=== PATIENT | female | born 1950 | race Caucasian/White ===

== ENCOUNTER → 2017-04-12 | Outpatient (CLI) | payer MEDICARE ==
--- NOTE | 2017-04-16 10:48 | MM ---
Reason for exam: screening (asymptomatic). Last mammogram was performed 1 year ago. History: Patient is postmenopausal. Family history of breast cancer in paternal aunt at age 80. Took estrogen for 2 years beginning at age 46. Physical Findings: A clinical breast exam by your physician is recommended on an annual basis and results should be correlated with mammographic findings. MG 3D Screening Mammo W/Cad Bilateral CC and MLO view(s) were taken. Prior study comparison: April 11, 2016, bilateral MG 3d screening mammo w/cad. April 20, 2015, left breast MG work up mamm w CAD LT. April 08, 2015, bilateral MG screening mammo w CAD. There are scattered fibroglandular densities. There is no discrete abnormality. ASSESSMENT: Negative, BI-RAD 1 RECOMMENDATION: Routine screening mammogram of both breasts in 1 year.
== END ==
LOC: RADMAMWWP 08:58
PROVIDERS: ATTEND Obstetrics & Gynecology
DX: Z12.31 Encounter for screening mammogram for malignant neoplasm of breast (principal); Z80.3 Family history of malignant neoplasm of breast
CPT/HCPCS: 77063; G0202

== ENCOUNTER → 2017-04-16 | Outpatient (CLI) | payer MEDICARE ==
[2017-04-16 14:20] VITALS: BP 141/80; PULSE 66; TEMP 98.2; BMI 36.7
--- NOTE | 2017-04-16 16:22 | P.HPBAR ---
Bariatric H&P - History & Physicial H&P Date: 04/16/17 History & Physicial: Visit/CC: lap band follow up Patient initial contact: Initial weight: 77.111 kg Initial weight in pounds: 170.00 Height: 5 ft 5 in Initial BMI: 28.3 Last weight: 208 Current weight: 100.199 kg Current weight in pounds: 220.90 Current BMI: 36.7 [place] body weight (based on NIH guidelines): 56.699 kg Excess body weight loss: The patient is a 66 year-old F who presents for Bariatric Assessment. The patient presents today for lab band follow up. She's had some mild GERD. He is actually gaining some weight. It's been approximate year since I have seen her. Past Medical History Additional Past Medical History / Comment(s): kidney stones, lap band, shoulder pain History of Any Multi-Drug Resistant Organisms: None Reported Past Surgical History: Cholecystectomy Additional Past Surgical History / Comment(s): lap band Past Psychological History: No Psychological Hx Reported Smoking Status: Never smoker Past Alcohol Use History: Rare Past Drug Use History: None Reported Surgical - Exam Vital Signs Temp Pulse BP 98.2 F 66 141/80 04/16/17 14:17 04/16/17 14:17 04/16/17 14:17 - General well developed, no distress - Eyes PERRL - ENT normal pinna - Neck no masses - Respiratory normal expansion - Cardiovascular Rhythm: regular - Abdomen Abdomen: soft, non tender Bariatric Assessment & Plan Plan: The patient's GERD symptoms are minimal only observed. She'll follow-up in one month recheck. Bariatric Checklist Checklist: Plan: Checklist: EGD: 1. Hiatal hernia: 2. H. Pylori: HgbA1c: Vitamin D: Smoking: Never smoker Primary care physician referral: dr casiano Psychiatry clearance: Cardiology clearance: Sleep study: Diet journal: VTE risk score: VTE risk level: Rehab needs at discharge:
== END ==
LOC: BARWHC3 13:47
PROVIDERS: ATTEND Surgery
DX: Z48.815 Encounter for surgical aftercare following surgery on the digestive system (principal); Z98.84 Bariatric surgery status; K21.9 Gastro-esophageal reflux disease without esophagitis
CPT/HCPCS: 99211

== ENCOUNTER → 2017-05-22 | Outpatient (CLI) | payer MEDICARE ==
--- NOTE | 2017-05-22 08:26 | BD ---
EXAMINATION TYPE: MG DEXA axial skeleton. DATE OF EXAM: 05/22/2017 COMPARISON: DEXA bone scan May 19, 2014 CLINICAL HISTORY: Postmenopausal female with known osteopenia. Height: 64 Weight: 221.0 FRAX RISK QUESTIONS: Alcohol (3 or more units per day): no Family History (Parent hip fracture): yes Glucocorticoids (More than 3mos): no (Ex: prednisone, prednisolone, methylprednisolone, dexamethasone, and hydrocortisone). History of Fracture in Adulthood: no Secondary Osteoporosis: 1. Type 1 Diabetes: no 2. Hyperthyroidism: no 3. Menopause before 45: no 4. Malnutrition: no 5. Chronic liver disease: no Rheumatoid Arthritis: no Current Tobacco Use: no RISK FACTORS HISTORY OF: Hip Fracture (Right/Left): no Spine Fracture: no History of Wrist Fracture: no Surgery to Spine/Hip(right/left)/Wrist (right/left): no Family History of Osteoporosis: yes Active: yes Diet low in dairy products/other sources of calcium: no Postmenopausal woman: late 40s early 50s Lost more than 2 inches in height since high school: just 2 inches Frequent falls: no Poor Health: no Hyperparathyroidism: no Adrenal Insufficiency: no MEDICATIONS: restasis, citalopram, naproxen Prednisone or other steroids: just stopped taking them How Long: only took for 7 days Additional History: EXAM MEASUREMENTS: Bone mineral densitometry was performed using the [employer] System. Bone mineral density as measured about the Lumbar spine is: ----- L1-L4(G/cm2): 1.057 T Score Values are as follows: ----- L2: -1.3 ----- L3: -1.4 ----- L4: -0.3 ----- L1-L4: -1.0 Bone mineral density has: decreased -11.6 % since study of: 05.19.2014 Bone mineral density about the R hip (g/cm2): 0.809 Bone mineral density about the L hip (g/cm2): 0.837 T Score values are as follows: -----R Neck: -1.6 -----L Neck: -1.4 -----R Total: -0.9 -----L Total: -0.7 Bone mineral density has: decreased -0.9 % since study of: 05.19.2014 IMPRESSION: Osteopenia (T Score between -2.5 and -1 as noted by T score values in the low back and both hips is n ow present. Bone density is decreased or diminished from prior. There remains slightly increased risk of fracture and the patient may be considered for treatment. Re-Screen 2-5 years. NOTE: T-SCORE=SD OF THE YOUNG ADULT MEAN.
== END | disposition home or self-care (01) ==
LOC: RADBDWWP 07:18
PROVIDERS: ATTEND Obstetrics & Gynecology
DX: M85.89 Other specified disorders of bone density and structure, multiple sites (principal)
CPT/HCPCS: 77080

== ENCOUNTER → 2017-07-23 | Outpatient (CLI) | payer MEDICARE ==
[2017-07-23 14:00] VITALS: BP 160/94; PULSE 97; RESP 16; TEMP 98.3; BMI 37.0
--- NOTE | 2017-07-23 15:15 | FL ---
GASTRIC BANDING ESOPHAGRAM CLINICAL HISTORY: Pain 49 SEC FLUORO Images submitted. Gastric banding esophagram was performed. The patient ingested thin liquid barium without difficulty . Gastric band is noted to be in place. Mild narrowing is noted at the site of band placement with m ild delay in esophagogastric transit. There is no evidence for prolapse. IMPRESSION: Mild narrowing is noted at the site of band placement with mild delay in esophagogastric transit. The re is no evidence for prolapse.
--- NOTE | 2017-07-23 16:02 | P.HPBAR ---
Bariatric H&P - History & Physicial H&P Date: 07/23/17 History & Physicial: Visit/CC: and adj Patient initial contact: Initial weight: 77.111 kg Initial weight in pounds: 170.00 Height: 5 ft 5 in Initial BMI: 28.3 Last weight: Current weight: 100.953 kg Current weight in pounds: 222.00 Current BMI: 37.0 [place] body weight (based on NIH guidelines): 56.699 kg Excess body weight loss: The patient is a 66 year-old F who presents for Bariatric Assessment. The patient presents today for lab band follow up. She has had some complaints of dysphagia. Past Medical History Additional Past Medical History / Comment(s): kidney stones, lap band, shoulder pain History of Any Multi-Drug Resistant Organisms: None Reported Past Surgical History: Cholecystectomy Additional Past Surgical History / Comment(s): lap band Smoking Status: Never smoker Surgical - Exam Vital Signs Temp Pulse Resp BP 98.3 F 97 16 160/94 07/23/17 13:58 07/23/17 13:58 07/23/17 13:58 07/23/17 13:58 - General well nourished, no distress - Eyes PERRL - Abdomen Abdomen: soft, non tender Bariatric Assessment & Plan Plan: Patient had an esophagram. She is found to have some mild narrowing at the LAP- BAND site. There is also some mild delay of contrast passing through the level of the band. The patient's LAP-BAND was just. She had 0.2 mL remove her band. She will follow-up in one month. Bariatric Checklist Checklist: Plan: Checklist: EGD: 1. Hiatal hernia: 2. H. Pylori: HgbA1c: Vitamin D: Smoking: Never smoker Primary care physician referral: dr casiano Psychiatry clearance: Cardiology clearance: Sleep study: Diet journal: VTE risk score: VTE risk level: Rehab needs at discharge:
== END | disposition home or self-care (01) ==
LOC: BARWHC3 13:44
PROVIDERS: ATTEND Surgery
DX: Z48.815 Encounter for surgical aftercare following surgery on the digestive system (principal); K95.09 Other complications of gastric band procedure; R13.10 Dysphagia, unspecified; Z98.84 Bariatric surgery status
CPT/HCPCS: 74220; G0463; 99213

== ENCOUNTER → 2017-09-03 | Outpatient (CLI) | payer MEDICARE ==
[2017-09-03 13:20] VITALS: BP 123/74; PULSE 80; RESP 16; TEMP 98.1; BMI 37.3
--- NOTE | 2017-09-04 11:44 | P.HPBAR ---
Bariatric H&P - History & Physicial H&P Date: 09/03/17 History & Physicial: Visit/CC: band adj Patient initial contact: Initial weight: 77.111 kg Initial weight in pounds: 170.00 Height: 5 ft 5 in Initial BMI: 28.3 Last weight: Current weight: 101.605 kg Current weight in pounds: 224.00 Current BMI: 37.3 [place] body weight (based on NIH guidelines): 56.699 kg Excess body weight loss: The patient is a 66 year-old F who presents for Bariatric Assessment. Patient presents for lab band follow. She's had some minimal GERD. The patient is a does not want to fill due to dysphagia. Past Medical History Additional Past Medical History / Comment(s): kidney stones, lap band, shoulder pain History of Any Multi-Drug Resistant Organisms: None Reported Past Surgical History: Cholecystectomy Additional Past Surgical History / Comment(s): lap band Smoking Status: Never smoker Surgical - Exam Vital Signs Temp Pulse Resp BP 98.1 F 80 16 123/74 09/03/17 13:17 09/03/17 13:17 09/03/17 13:17 09/03/17 13:17 - General well developed, no distress - Eyes PERRL - ENT normal pinna - Neck no masses - Respiratory normal expansion - Cardiovascular Rhythm: regular - Abdomen Abdomen: soft, non tender Bariatric Assessment & Plan Plan: Patient will not a fill this visit. Her GERD is minimal will be observed. She' ll follow-up in one month. Bariatric Checklist Checklist: Plan: Checklist: EGD: 1. Hiatal hernia: 2. H. Pylori: HgbA1c: Vitamin D: Smoking: Never smoker Primary care physician referral: dr casiano Psychiatry clearance: Cardiology clearance: Sleep study: Diet journal: VTE risk score: VTE risk level: Rehab needs at discharge:
== END | disposition home or self-care (01) ==
LOC: BARWHC3 13:09
PROVIDERS: ATTEND Surgery
DX: Z48.815 Encounter for surgical aftercare following surgery on the digestive system (principal); K21.9 Gastro-esophageal reflux disease without esophagitis; Z98.84 Bariatric surgery status
CPT/HCPCS: 99212

== ENCOUNTER → 2018-05-08 | Outpatient (CLI) | payer MEDICARE ==
--- NOTE | 2018-05-09 15:02 | MM ---
Reason for exam: screening (asymptomatic). Last mammogram was performed 1 year and 1 month ago. History: Patient is postmenopausal. Family history of breast cancer in paternal aunt at age 80. Took estrogen for 2 years beginning at age 46. Physical Findings: A clinical breast exam by your physician is recommended on an annual basis and results should be correlated with mammographic findings. MG 3D Screening Mammo W/Cad Bilateral CC and MLO view(s) were taken. Prior study comparison: April 12, 2017, bilateral MG 3d screening mammo w/cad. April 11, 2016, bilateral MG 3d screening mammo w/cad. There are scattered fibroglandular densities. No significant changes when compared with prior studies. ASSESSMENT: Negative, BI-RAD 1 RECOMMENDATION: Routine screening mammogram of both breasts in 1 year.
== END ==
LOC: RADMAMWWP 08:01
PROVIDERS: ATTEND Obstetrics & Gynecology
DX: Z12.31 Encounter for screening mammogram for malignant neoplasm of breast (principal)
CPT/HCPCS: 77063; 77067

== ENCOUNTER → 2019-04-21 | Outpatient (CLI) | payer MEDICARE ==
--- NOTE | 2019-04-21 14:13 | P.HPBAR ---
Bariatric H&P - History & Physicial H&P Date: 04/21/19 History & Physicial: Visit/CC: Patient initial contact: Initial weight: 77.111 kg Initial weight in pounds: Height: Initial BMI: Last weight: Current weight: Current weight in pounds: Current BMI: 252 [place] body weight (based on NIH guidelines): Excess body weight loss: The patient is a 68 year-old F who presents for Bariatric Assessment. Patient presents today for lab band follow up. She has had a difficult time with weight loss. She has not been able to be adjusted due to GERD symptoms. She is currently gained weight her current weight is 252 pounds. She was switched to a sleeve gastrectomy due to her issues with LAP-BAND not being able to be adjusted. Patient's had significant GERD the past with her band adjusted. Past Medical History Additional Past Medical History / Comment(s): kidney stones, lap band, shoulder pain History of Any Multi-Drug Resistant Organisms: None Reported Past Surgical History: Cholecystectomy Additional Past Surgical History / Comment(s): lap band Smoking Status: Never smoker Surgical - Exam - General well developed, well nourished, no distress - Eyes PERRL - ENT normal pinna - Neck no masses - Respiratory normal expansion - Cardiovascular Rhythm: regular - Abdomen Abdomen: soft, non tender Bariatric Assessment & Plan Plan: Chronic GERD. Morbid obesity Patient was scheduled for EGD. She will follow-up after this is performed. Bariatric Checklist Checklist: Plan: Checklist: EGD: 1. Hiatal hernia: 2. H. Pylori: HgbA1c: Vitamin D: Smoking: Never smoker Primary care physician referral: dr casiano Psychiatry clearance: Cardiology clearance: Sleep study: Diet journal: VTE risk score: VTE risk level: Rehab needs at discharge:
[2019-04-21 14:32] VITALS: BP 145/73; PULSE 105; RESP 16; TEMP 98.4; BMI 43.8
== END ==
LOC: BARWHC3 13:40
PROVIDERS: ATTEND Surgery
DX: Z48.815 Encounter for surgical aftercare following surgery on the digestive system (principal); E66.01 Morbid (severe) obesity due to excess calories; K21.9 Gastro-esophageal reflux disease without esophagitis; Z98.84 Bariatric surgery status; Z90.49 Acquired absence of other specified parts of digestive tract; Z68.41 Body mass index [BMI] 40.0-44.9, adult
CPT/HCPCS: 99212

== ENCOUNTER 2019-05-14 11:15 | Day surgery (SDC) | payer MEDICARE ==
[2019-05-12 14:12] VITALS: BMI 44.2
[~2019-05-14 11:15] MED LIST: LACTATED RINGERS 1,000 ML IV SCH; LIDOCAINE 1% 20 ML VIAL (10MG/ML) FOR IV START INTRADERMA PRN
[2019-05-14 11:41] VITALS: TEMP 97.9
[2019-05-14] MEDS ORDERED: LACTATED RINGERS 1,000 ML IV ONE (11:41)
[2019-05-14] MEDS ORDERED: LIDOCAINE 1% 20 ML VIAL (10MG/ML) FOR IV START INTRADERMA ONE (11:48)
[2019-05-14] MEDS ORDERED: MIDAZOLAM 2 MG/2 ML VIAL ONE (12:26)
[2019-05-14] MEDS ORDERED: PROPOFOL 10 MG/ML 20 ML VIAL IV ONE (12:26)
[2019-05-14] MEDS ORDERED: LIDOCAINE 1% INJ 10MG/ML (20 ML MDV) ONE (12:26)
[2019-05-14] MEDS ORDERED: fentaNYL (PF) 50 MCG/ML 2 ML AMP ONE (12:26)
--- NOTE | 2019-05-14 12:36 | P.GSHP ---
History of Present Illness H&P Date: 05/14/19 Chief Complaint: GERD, screening colonoscopy This a 66-year-old female who presents today for he and screening colonoscopy. She denies a significant GI complaints. Past Medical History Additional Past Medical History / Comment(s): kidney stones, lap band, shoulder pain History of Any Multi-Drug Resistant Organisms: None Reported Past Surgical History: Cholecystectomy Additional Past Surgical History / Comment(s): lap band,anel cataracts Past Anesthesia/Blood Transfusion Reactions: Postoperative Nausea & Vomiting (PONV) Smoking Status: Never smoker - Past Family History Mother Family Medical History: Dementia Father Family Medical History: Cancer Additional Family Medical History / Comment(s): cancer Sister(s) Family Medical History: Cancer Additional Family Medical History / Comment(s): skin Medications and Allergies Home Medications Medication Instructions Recorded Confirmed Type cycloSPORINE [Restasis] 1 applicator BOTH EYES BID 01/31/16 05/12/19 History Cetirizine HCl [Zyrtec] 10 mg PO DAILY 04/21/19 05/12/19 History Omeprazole [PriLOSEC] 20 mg PO AC-BRKFST 04/21/19 05/12/19 History Naproxen 500 mg PO BID PRN 05/12/19 05/12/19 History Venlafaxine HCl [Effexor XR] 75 mg PO QAM 05/12/19 05/12/19 History Allergies Allergy/AdvReac Type Severity Reaction Status Date / Time Penicillins Allergy Rash/Hives Verified 05/12/19 14:04 Surgical - Exam Vital Signs Temp Pulse Resp BP Pulse Ox 97.9 F 107 H 18 160/87 94 L 05/14/19 11:39 05/14/19 11:39 05/14/19 11:39 05/14/19 11:39 05/14/19 11:39 - General well developed, well nourished, no distress - Eyes PERRL - ENT normal pinna - Neck no masses - Respiratory normal expansion - Cardiovascular Rhythm: regular - Abdomen Abdomen: soft, non tender Assessment and Plan Assessment: GERD. We'll perform EGD. We'll also perform screening colonoscopy.
--- NOTE | 2019-05-14 13:03 | P.OP ---
Date of Procedure: 05/14/19 Preoperative Diagnosis: GERD Screening colonoscopy Postoperative Diagnosis: Antral gastritis Transverse colon polyp Procedure(s) Performed: EGD Colonoscopy Anesthesia: MAC Surgeon: Michael Hickman Pathology: other (Antrum, transverse colon polyp) Condition: stable Disposition: PACU Description of Procedure: The patient's placed on the endoscopy table in the lateral position. She received IV sedation. The gastroscope placed oropharynx passed in the esophagus and into the stomach. Scope was then placed through the pylorus. The first and second portion of the duodenum appeared normal. Scope was then brought back the antrum this. Mildly inflamed. A biopsies performed. The scope was unretrof lexed and remainder some appeared all. The patient appears placed [place]ba device this was without evidence of inflammation or erosion. The scope was then brought back the distal esophagus. Minimal inflamed. The proximal esophagus appeared normal. Scope withdrawn for patient. Next digital rectal exam was performed which revealed a few internal hemorrhoids. Possible colonoscope was then placed patient anus and passed throughout the entire colon. The ileocecal valve was visualized. The cecum, ascending colon appeared normal. In the transverse colon there was a sessile polyp which was removed with the snare. Remainder of the transverse colon appeared normal. In the descending; there were no polyps or diverticula seen. Scope was then brought back the rectum and this appeared normal. Scope withdrawn for patient.
[2019-05-14 13:05] VITALS: RESP 16
[2019-05-14 13:17] VITALS: BP 155/97; PULSE 77
== END 2019-05-14 13:37 | disposition home or self-care (01) ==
LOC: ORWHC2ENDO 11:15
PROVIDERS: ATTEND Surgery
DX: Z12.11 Encounter for screening for malignant neoplasm of colon (principal); D12.3 Benign neoplasm of transverse colon; K21.0 Gastro-esophageal reflux disease with esophagitis; K29.50 Unspecified chronic gastritis without bleeding; K64.8 Other hemorrhoids; E66.9 Obesity, unspecified; Z87.442 Personal history of urinary calculi; Z98.41 Cataract extraction status, right eye; Z98.42 Cataract extraction status, left eye; Z98.84 Bariatric surgery status; Z90.49 Acquired absence of other specified parts of digestive tract; Z81.8 Family history of other mental and behavioral disorders; Z80.8 Family history of malignant neoplasm of other organs or systems; Z79.899 Other long term (current) drug therapy; Z88.0 Allergy status to penicillin; Z68.41 Body mass index [BMI] 40.0-44.9, adult
CPT/HCPCS: 45385; 88305; 43239; J2250; J2001; J3010; J2704; 45380

== ENCOUNTER → 2019-05-19 | Outpatient (CLI) | payer MEDICARE ==
[2019-05-19 14:10] VITALS: BP 143/85; PULSE 82; TEMP 97.9; BMI 43.6
--- NOTE | 2019-07-27 13:06 | P.HPBAR ---
Bariatric H&P - History & Physicial H&P Date: 05/19/19 History & Physicial: Visit/CC: conversion to sleeve consult Patient initial contact: Initial weight: 77.111 kg Initial weight in pounds: 170.00 Height: 5 ft 3.5 in Initial BMI: 29.6 Last weight: Current weight: 113.398 kg Current weight in pounds: 250.00 Current BMI: 43.6 [place] body weight (based on NIH guidelines): 53.297 kg Excess body weight loss: The patient is a 68 year-old F who presents for Bariatric Assessment. Patient presents today for sleeve gastrectomy consultation. She has had issues with GERD and dysphagia. Her band. She is unable to lose any further weight. Past Medical History Additional Past Medical History / Comment(s): kidney stones, lap band, shoulder pain History of Any Multi-Drug Resistant Organisms: None Reported Past Surgical History: Cholecystectomy Additional Past Surgical History / Comment(s): lap band Past Psychological History: No Psychological Hx Reported Smoking Status: Never smoker Past Alcohol Use History: Rare Past Drug Use History: None Reported - Past Family History Mother Family Medical History: Dementia Father Family Medical History: Cancer Additional Family Medical History / Comment(s): cancer Sister(s) Family Medical History: Cancer Additional Family Medical History / Comment(s): skin Surgical - Exam Vital Signs Temp Pulse BP 97.9 F 82 143/85 05/19/19 14:02 05/19/19 14:02 05/19/19 14:02 - General well developed, well nourished, no distress - Abdomen Abdomen: soft, non tender Bariatric Assessment & Plan Plan: Morbid obesity with BMI 44. Patient's has had chronic conditions with dysphagia with her band once her band was adjusted. Patient requesting conversion sleeve yesterday. I went over the risks and benefits of surgery including conversion to the open procedure injury to the stomach liver spleen vagotomy dysphagia recurrent GERD symptoms. Patient will be scheduled for EGD. Bariatric Checklist Checklist: Plan: Checklist: EGD: 1. Hiatal hernia: 2. H. Pylori: HgbA1c: Vitamin D: Smoking: Never smoker Primary care physician referral: dr casiano Psychiatry clearance: Cardiology clearance: Sleep study: Diet journal: VTE risk score: VTE risk level: Rehab needs at discharge:
== END | disposition home or self-care (01) ==
LOC: BARWHC3 13:49
PROVIDERS: ATTEND Surgery
DX: Z48.815 Encounter for surgical aftercare following surgery on the digestive system (principal); E66.01 Morbid (severe) obesity due to excess calories; Z68.41 Body mass index [BMI] 40.0-44.9, adult; R13.10 Dysphagia, unspecified; K21.9 Gastro-esophageal reflux disease without esophagitis; Z90.49 Acquired absence of other specified parts of digestive tract
CPT/HCPCS: 99211

== ENCOUNTER → 2019-06-02 | Outpatient (CLI) | payer MEDICARE ==
[2019-06-02 09:43] VITALS: BMI 43.4
== END | disposition home or self-care (01) ==
LOC: BARWHC3 08:36
PROVIDERS: ATTEND Surgery
DX: E66.01 Morbid (severe) obesity due to excess calories (principal); Z68.41 Body mass index [BMI] 40.0-44.9, adult
CPT/HCPCS: 97804

== ENCOUNTER → 2019-06-09 | Outpatient (CLI) | payer MEDICARE ==
[2019-06-09 10:59] LABS: Basophils # (A) 0.1 k/uL (0-0.2); Basophils % (A) 1 %; Eosinophils # (A) 0.3 k/uL (0-0.7); Eosinophils % (A) 3 %; HCT 43.1 % (34.0-46.0); HGB 14.3 gm/dL (11.4-16.0); Lymphocytes # (A) 1.7 k/uL (1.0-4.8); Lymphocytes % (A) 19 %; MCH 28.1 pg (25.0-35.0); MCHC 33.2 g/dL (31.0-37.0); MCV 84.7 fL (80.0-100.0); Mean Platelet Volume 6.2; Monocytes # (A) 0.5 k/uL (0-1.0); Monocytes % (A) 6 %; Neutrophils # (A) 6.2 k/uL (1.3-7.7); Neutrophils % (A) 70 %; Platelet Count 377 k/uL (150-450); RBC 5.09 m/uL (3.80-5.40); RDW 13.7 % (11.5-15.5); WBC 8.8 k/uL (3.8-10.6)
[2019-06-09 11:13] LABS: Albumin 4.2 g/dL (3.5-5.0); Calcium 9.8 mg/dL (8.4-10.2); Potassium 4.6 mmol/L (3.5-5.1); Total Bilirubin 0.4 mg/dL (0.2-1.3); Total Protein 7.4 g/dL (6.3-8.2)
== END | disposition home or self-care (01) ==
LOC: LABPAT 09:32
PROVIDERS: ATTEND Surgery
DX: Z01.812 Encounter for preprocedural laboratory examination (principal)
CPT/HCPCS: 36415; 80053; 85025; 93005

== ENCOUNTER 2019-06-16 08:38 | Inpatient (IN) | payer MEDICARE ==
[~2019-06-16 08:38] MED LIST changes: +DEXAMETHASONE SOD PHOSPHATE 10 MG/ML 1 ML VIAL IV ONE; +ENOXAPARIN 40 MG/0.4 ML SYRINGE SQ ONE; +HYDROmorphone 0.5 MG/0.5 ML SYRINGE IVP PRN; -LACTATED RINGERS 1,000 ML IV SCH; +MIDAZOLAM 2 MG/2 ML VIAL IV PRN; +SCOPOLAMINE 1.5MG/72HR PATCH TRANSDERM ONE
[2019-06-16] MEDS ORDERED: LACTATED RINGERS 1,000 ML IV ONE ×2 (10:16→12:19)
[2019-06-16] MEDS: ONDANSETRON 4 MG/2 ML VIAL IVP ONE ×2 (10:18→13:09)
--- NOTE | 2019-06-16 10:19 | P.GSHP ---
History of Present Illness H&P Date: 06/16/19 Chief Complaint: Dysphagia, morbid obesity Is a 68-year-old female who presents today for removal of LAP-BAND and conversion sleeve yesterday. Patient lifetime problems obesity. She developed chronic dysphagia related to her LAP-BAND. Resurrect surgery including conversion to open procedure injury to the stomach liver spleen. She also aware the risk of gastric staple line disruption, bleeding or scarring. 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 far History of Any Multi-Drug Resistant Organisms: None Reported Past Surgical History: Bariatric Surgery, Cholecystectomy Additional Past Surgical History / Comment(s): lap band, then prolapse with replacement of band, sinus surgery, anel cataracts, Past Anesthesia/Blood Transfusion Reactions: Motion Sickness, Postoperative Nausea & Vomiting (PONV) Smoking Status: Never smoker - Past Family History Mother Family Medical History: Dementia Father Family Medical History: Cancer Additional Family Medical History / Comment(s): skin Sister(s) Family Medical History: Cancer Additional Family Medical History / Comment(s): skin Medications and Allergies Home Medications Medication Instructions Recorded Confirmed Type cycloSPORINE [Restasis] 1 applicator BOTH EYES BID 01/31/16 06/11/19 History Cetirizine HCl [Zyrtec] 10 mg PO DAILY 04/21/19 06/11/19 History Omeprazole [PriLOSEC] 20 mg PO AC-BRKFST 04/21/19 06/11/19 History Naproxen 500 mg PO BID PRN 05/12/19 06/11/19 History Venlafaxine HCl [Effexor XR] 75 mg PO QAM 05/12/19 06/11/19 History Allergies Allergy/AdvReac Type Severity Reaction Status Date / Time Penicillins Allergy Rash/Hives Verified 06/11/19 09:45 Surgical - Exam Vital Signs Temp Pulse Resp BP Pulse Ox 97.8 F 75 18 137/74 97 06/16/19 10:05 06/16/19 10:05 06/16/19 10:05 06/16/19 10:05 06/16/19 10:05 - General well developed, well nourished, no distress - Eyes PERRL - ENT normal pinna - Neck no masses - Respiratory normal expansion - Cardiovascular Rhythm: regular - Abdomen Abdomen: soft, non tender Assessment and Plan Assessment: Dysphagia related to LAP-BAND. Morbid obesity, BMI 42 We'll perform LAP-BAND and conversion sleeve gastrectomy.
[2019-06-16] MEDS ORDERED: SUCCINYLCHOLINE CHLORIDE 100 MG/5 ML SYR IV ONE (10:39)
[2019-06-16] MEDS ORDERED: NEOSTIGMINE 1 MG/ML 10 ML VIAL ONE (10:39)
[2019-06-16] MEDS ORDERED: GLYCOPYRROLATE 0.2 MG/ML 2 ML VIAL ONE (10:39)
[2019-06-16] MEDS ORDERED: MIDAZOLAM 2 MG/2 ML VIAL ONE (10:39)
[2019-06-16] MEDS ORDERED: ROCURONIUM BROMIDE 10 MG/ML 10 ML VIAL IV ONE (10:39)
[2019-06-16] MEDS ORDERED: fentaNYL (PF) 50 MCG/ML 2 ML AMP ONE (10:39)
[2019-06-16] MEDS ORDERED: PROPOFOL 10 MG/ML 20 ML VIAL IV ONE (10:39)
[2019-06-16] MEDS ORDERED: KETAMINE 10 MG/ML 20 ML VIAL ONE (10:39)
[2019-06-16] MEDS ORDERED: LIDOCAINE 1% INJ 10MG/ML (20 ML MDV) ONE (10:39)
[2019-06-16] MEDS ORDERED: BUPIVACAIN-EPI 0.25%-1:200,000 30 ML VIAL SQ ONE (11:13)
[2019-06-16] MEDS ORDERED: HYDROmorphone 1 MG/ML 1 ML SYRINGE IVP PRN (12:45)
[2019-06-16] MEDS ORDERED: diphenhydrAMINE 50 MG/ML 1 ML VIAL IVP PRN (12:45)
[2019-06-16] MEDS ORDERED: ONDANSETRON 4 MG/2 ML VIAL IVP PRN (12:45)
[2019-06-16] MEDS ORDERED: SIMETHICONE 40 MG/0.6 ML DROPS 2,000 MG/30 ML BOTTLE PO PRN (12:45)
[2019-06-16] MEDS ORDERED: HYOSCYAMINE ORAL DROPS 1.875 MG/15 ML BOTTLE PO PRN (12:45)
[2019-06-16] MEDS ORDERED: NALOXONE 0.4 MG/ML 1 ML VIAL IV PRN (12:45)
[2019-06-16] MEDS: PROMETHAZINE INJ 25 MG/ML 1 ML VIAL IVPB ONE ×2 (13:15→14:31)
[2019-06-16] MEDS ORDERED: diphenhydrAMINE 50 MG/ML 1 ML VIAL IVP ONE (13:35)
[2019-06-16] MEDS ORDERED: METOCLOPRAMIDE 5 MG/ML 2 ML VIAL IVP ONE (13:59)
[2019-06-16] MEDS: LACTATED RINGERS 1,000 ML IV SCH (15:31)
[2019-06-16] MEDS: 0.9% NACL WITH KCL 20 MEQ/L 1,000 ML IV SCH ×2 (16:08→17:27)
[2019-06-16] MEDS: ALBUTEROL NEBULIZED 2.5 MG/3 ML INHALATION SCH ×2 (16:20→20:40)
[2019-06-16] MEDS: KETOROLAC 30 MG/ML 1 ML VIAL IVP SCH (17:25)
[2019-06-16] MEDS: CLINDAMYCIN 900 MG in DEXTROSE 5% IN WATER 50 ML IVPB SCH ×2 (17:28)
--- NOTE | 2019-06-16 17:43 | P.OP ---
Date of Procedure: 06/16/19 Preoperative Diagnosis: Dysphagia Morbid obesity Postoperative Diagnosis: Dysphagia Morbid obesity, BMI 42 Procedure(s) Performed: Laparoscopic lysis of adhesions Laparoscopic removal of LAP-BAND system Laparoscopic sleeve gastrectomy Anesthesia: KANWAL Surgeon: Michael Hickman Estimated Blood Loss (ml): 25 Pathology: other (Stomach) Condition: stable Disposition: PACU Description of Procedure: The patient was placed on the operating room table in the supine position. She received general anesthesia and then was placed in dorsal lithotomy position. Her abdomen was prepped and draped in sterile fashion. The skin incision sites were anesthetized 1% local Xylocaine. Using 11 blade the skin was incised and the port site then using blunt and sharp dissection with cautery the LAP-BAND port was dissected free the connecting tube was then cut and the port was then sent to pathology. Next a 5 mm operative trocar was placed under direct vision into the peritoneal cavity the port site. The abdomen was insufflated. And then the skin was incised with an 11 blade in the left lateral position. Using a blade less trocar under direct visualization the peritoneal cavity was entered. A 5 mm trocar was placed in the right epigastric, and right lateral position. A 15 mm trocar was placed in the supra-umbilical position and another 5 mm trocar was placed in the left lateral position. The left lateral lobe of the liver was retracted. Adhesions to the stomach and liver were lysed using sharp dissection. The LAP- BAND device was visualized. The anterior gastric wall plication was taken down with sharp dissection. Care was taken to identify and preserve the gastric wall. The LAP-BAND device and then cut and withdrawn from around stomach. It was extracted through the 15 mm trocar site. The stomach was visualized. The greater curvature of the stomach was then dissected using the Harmonic scissors. The dissection occurred approximately 5 cm from the pylorus to the level of the left randal. There was no hiatal hernia seen. At this point a 40-[place] bougie dilator was placed the oropharynx and passed into the esophagus and into the stomach by the CHEMICAL PREPARER. The sleeve gastrectomy was performed by using the powered echelon stapler with a seam guard buttress material. Sequential firings of the stapler were performed. The gastric remnant was then brought out through the 15 mm trocar site. The dilator was withdrawn. And a orogastric tube was replaced into the stomach. The stomach was insufflated with 200 mL of methylene blue normal saline. There was no evidence of extravasation. The abdomen was irrigated there is no bleeding seen. The [place]-Laila device was used to close the 15 mm trocar with 0 Vicryl. Skin was closed with interrupted 3-0 Monocryl sutures once the trochars withdrawn. Dermabond dressing was applied. Patient was sent to recovery in stable condition.
--- NOTE | 2019-06-16 19:51 | P.CONS ---
History of Present Illness - Reason for Consult Consult date: 06/16/19 Dyslipidemia Requesting physician: Michael Hickman - Chief Complaint weight gain - History of Present Illness Patient is a 68-year-old female past medical history of hypertension, arthritis, GERD, sciatica, and morbid obesity who presented for elective gastric sleeve. Patient doesn't history of a lap band procedure approximately 16 years ago which resulted in some weight loss. She decided to present a gastric sleeve secondary to increasing weight gain over the last year leading to increased back pain and sciatica. Patient seen and examined at bedside. She denies any postoperative shortness of breath, nausea, vomiting, chest pain, lightheadedness or dizziness. She does complain of some increased sinus drainage for which typically takes Zyrtec and as needed nasal drops. She has not had any other illnesses recently. She denies any recent cough, cold, fever, or flu. She last saw her PCP Dr. Iverson about one week ago. Review of Systems Pertinent positives and negatives as discussed in HPI, a complete review of systems was performed and all other systems are negative. 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 far History of Any Multi-Drug Resistant Organisms: None Reported Past Surgical History: Bariatric Surgery, Cholecystectomy Additional Past Surgical History / Comment(s): lap band, then prolapse with replacement of band, sinus surgery, anel cataracts, Past Anesthesia/Blood Transfusion Reactions: Motion Sickness, Postoperative Nausea & Vomiting (PONV) Past Psychological History: Depression Smoking Status: Never smoker Past Alcohol Use History: Rare Past Drug Use History: None Reported Additional History: , No assistive devices - Past Family History Mother Family Medical History: Dementia Father Family Medical History: Cancer Additional Family Medical History / Comment(s): skin Sister(s) Family Medical History: Cancer Additional Family Medical History / Comment(s): skin Medications and Allergies Home Medications Medication Instructions Recorded Confirmed Type cycloSPORINE [Restasis] 1 applicator BOTH EYES BID 01/31/16 06/11/19 History Cetirizine HCl [Zyrtec] 10 mg PO DAILY 04/21/19 06/11/19 History Omeprazole [PriLOSEC] 20 mg PO AC-BRKFST 04/21/19 06/11/19 History Naproxen 500 mg PO BID PRN 05/12/19 06/11/19 History Venlafaxine HCl [Effexor XR] 75 mg PO QAM 05/12/19 06/11/19 History Allergies Allergy/AdvReac Type Severity Reaction Status Date / Time Penicillins Allergy Rash/Hives Verified 06/11/19 09:45 Physical Exam Osteopathic Statement: *. No significant issues noted on an osteopathic structural exam other than those noted in the History and Physical/Consult. Vitals: Vital Signs Temp Pulse Pulse Resp BP Pulse Ox 06/16/19 16:31 69 06/16/19 16:24 69 97 06/16/19 16:10 16 06/16/19 15:45 97.6 F 69 15 143/66 95 06/16/19 15:01 71 16 108/53 96 06/16/19 14:33 70 16 93/50 95 06/16/19 14:15 62 14 103/54 94 L 06/16/19 14:01 56 L 14 96/53 95 06/16/19 13:45 55 L 16 97/50 95 06/16/19 13:31 46 L 16 99/55 95 06/16/19 13:16 62 16 125/60 94 L 06/16/19 13:00 52 L 16 114/57 99 06/16/19 12:49 96.8 F L 60 18 120/59 99 06/16/19 10:05 97.8 F 75 18 137/74 97 Intake and Output 06/16/19 06/16/19 06/16/19 06:59 14:59 22:59 Intake Total 1150 870 Output Total 50 Balance 1100 870 Intake: IV 1150 870 Output: Estimated Blood Loss 50 Other: Weight 108.862 kg 108.862 kg General: non toxic, no distress, appears at stated age Derm: warm, dry Head: atraumatic, normocephalic, symmetric Eyes: EOMI, no lid lag, anicteric sclera Mouth: no lip lesion, mucus membranes dry Cardiovascular: S1S2 reg, no murmur, positive posterior tibial pulse bilateral, Lungs: decreased bs bilateral, no rhonchi, no rales , no accessory muscle use Abdominal: soft, + tender to palpation diffusely , no guarding, no appreciable organomegaly Ext: no gross muscle atrophy, no edema, no contractures Neuro: CN II-XI grossly intact, no focal neuro deficits Psych: Alert, oriented, appropriate affect Assessment and Plan Assessment: Patient is a 68 YO CF here for elective gastric sleeve Sinusitis - flonase - liquid claritin GERD - IV PPI HLD - statin on hold until tolerating diet Depression - effexor on hold until toerating diet Morbid obesity with BMI 41.8 - s/p gastric sleeve Thank you for allowing us to participate in the care of this pleasant patient. Do not hesitate to contact us with questions. Someone can be reached from the [facility] [place] hospitalist group all hours of the day at [phone] or via [place].
[2019-06-17] MEDS: LORATADINE ORAL SOLN 120 MG/120 ML BOTTLE PO SCH ×2 (00:14→09:13)
[2019-06-17] MEDS: cycloSPORINE 0.05% OPHTH 0.4 ML DROPERETTE BOTH EYES SCH ×3 (00:16→23:57)
[2019-06-17] MEDS: ENOXAPARIN 40 MG/0.4 ML SYRINGE SQ SCH ×3 (00:16→22:40)
[2019-06-17] MEDS: KETOROLAC 30 MG/ML 1 ML VIAL IVP SCH ×5 (00:17→23:49)
[2019-06-17] MEDS: FLUTICASONE 50MCG/SPRAY NASAL 16GM EA NOSTRIL SCH ×2 (01:02→09:12)
[2019-06-17] MEDS ORDERED: CLINDAMYCIN 900 MG in DEXTROSE 5% IN WATER 50 ML IVPB SCH ×2 (04:00)
[2019-06-17] MEDS: CLINDAMYCIN 900 MG in DEXTROSE 5% IN WATER 50 ML IVPB SCH ×2 (04:48)
[2019-06-17] MEDS: 0.9% NACL WITH KCL 20 MEQ/L 1,000 ML IV SCH ×4 (04:51→23:46)
[2019-06-17 07:51] LABS: Calcium 8.6 mg/dL (8.4-10.2); Potassium 4.3 mmol/L (3.5-5.1)
[2019-06-17 07:53] LABS: Basophils % (A) 0 %; Eosinophils % (A) 0 %; HCT 33.4 % (34.0-46.0); Lymphocytes % (A) 14 %; MCH 28.3 pg (25.0-35.0); MCHC 32.9 g/dL (31.0-37.0); MCV 86.2 fL (80.0-100.0); Mean Platelet Volume 7.7; Monocytes % (A) 7 %; Neutrophils # (A) 10.4 k/uL (1.3-7.7); Neutrophils % (A) 77 %; Platelet Count 401 k/uL (150-450); RBC 3.88 m/uL (3.80-5.40); RDW 14.1 % (11.5-15.5); WBC 13.5 k/uL (3.8-10.6)
[2019-06-17] MEDS: ALBUTEROL NEBULIZED 2.5 MG/3 ML INHALATION SCH ×4 (08:09→21:04)
[2019-06-17] MEDS: PANTOPRAZOLE 40 MG/10 ML VIAL IV SCH (09:12)
--- NOTE | 2019-06-17 09:23 | FL ---
EXAMINATION TYPE: FL UGI DATE OF EXAM: 06/17/2019 COMPARISON: 07/23/2017 HISTORY: Post gastric sleeve TECHNIQUE: A single contrast UGI study is performed. FINDINGS: Jump Roll Operator image of the abdomen shows no gross abnormality. 38 seconds of fluoroscopy and 20 cc of Isovue ingested. Upon ingestion of a small amount of Isovue-370 there was complete obstruction at the level the GE oc ction. Subsegmental bilateral consolidation noted. Scoliosis seen with surgical clips in the right up per quadrant. IMPRESSION: Complete obstruction at the level the GE junction.
[2019-06-17] MEDS: LACTATED RINGERS 1,000 ML IV SCH (09:34)
[2019-06-17] MEDS: DEXAMETHASONE SOD PHOSPHATE 4 MG/ML 1 ML VIAL IV SCH ×3 (12:36→23:49)
[2019-06-17 13:15] VITALS: BMI 41.8
--- NOTE | 2019-06-17 14:14 | P.PN ---
Subjective Progress Note Date: 06/17/19 CHIEF COMPLAINT: Morbid obesity HISTORY OF PRESENT ILLNESS: Patient is status post laparoscopic removal of lap band and sleeve gastrectomy. Postop day #1. Patient examined at the bedside with Dr. Hickman. Patient reports her pain is tolerable at this time. P ostoperative esophagram completed revealing complete obstruction at the level of the GE junction. PHYSICAL EXAM: VITAL SIGNS: Reviewed. GENERAL: Well-developed in no acute distress. HEENT: No sclera icterus. Extraocular movements grossly intact. Moist buccal mucosa. Head is atraumatic, normocephalic. ABDOMEN: Soft. Nondistended. appropriate surgical tenderness. Laparoscopic incision sites clean dry and intact. NEUROLOGIC: Alert and oriented. Cranial nerves II through XII grossly intact. ASSESSMENT: 1. Morbid obesity, status post removal of lap band and sleeve gastrectomy PLAN: 1. NPO except ice chips 2. Begin Decadron 4mg IV every 6 hours 3. Pain control 4. IS 10 times an hour 5. Activity as tolerated 6. Repeat UGI tomorrow morning Nurse practitioner note has been reviewed by physician. Signing provider agrees with the documented findings, assessment, and plan of care. Objective - Vital Signs Vital signs: Vital Signs Temp 99.1 F 06/17/19 09:33 Pulse 110 H 06/17/19 07:20 Resp 18 06/17/19 07:20 BP 130/69 06/17/19 07:20 Pulse Ox 96 06/17/19 08:06 Intake & Output 06/16/19 06/17/19 06/17/19 18:59 06:59 18:59 Intake Total 2019 Output Total 50 500 Balance 1969 - Weight 108.862 kg 108.862 kg Intake: IV 2019 Output: Urine 500 Estimated Blood Loss 50 Other: # Voids 2 - Labs CBC & Chem 7: 06/17/19 06:25 06/17/19 06:25 Labs: Abnormal Lab Results - Last 24 Hours (Table) 06/17/19 06/17/19 Range/Units 06:25 06:25 WBC 13.5 H (3.8-10.6) k/uL Hgb 11.0 L D (11.4-16.0) gm/dL Hct 33.4 L (34.0-46.0) % Neutrophils # 10.4 H (1.3-7.7) k/uL Chloride 108 H (98-107) mmol/L BUN 20 H (7-17) mg/dL
--- NOTE | 2019-06-17 15:09 | P.PN ---
Subjective Progress Note Date: 06/17/19 Principal diagnosis: Postoperative management Patient was seen and examined. No acute events overnight. Patient currently nothing by mouth. She denies any chest or shortness of breath or palpitations. Complains of spitting up when drinking ice water. No fever or chills. Objective - Vital Signs Vital signs: Vital Signs Temp 99.1 F 06/17/19 09:33 Pulse 110 H 06/17/19 07:20 Resp 18 06/17/19 07:20 BP 130/69 06/17/19 07:20 Pulse Ox 96 06/17/19 08:06 Intake & Output 06/16/19 06/17/19 06/17/19 18:59 06:59 18:59 Intake Total 2019 Output Total 50 500 Balance 1969 - Weight 108.862 kg 108.862 kg Intake: IV 2019 Output: Urine 500 Estimated Blood Loss 50 Other: # Voids 2 - Exam General: [non toxic], [no distress], [appears at stated age] Derm: [warm], [dry] Head: [atraumatic], [normocephalic], [symmetric] Eyes: [EOMI], [no lid lag], [anicteric sclera] Mouth: [no lip lesion], [mucus membranes moist] Cardiovascular: [S1S2 reg], [no murmur], [positive posterior tibial pulse bilateral], Lungs: [CTA bilateral], [no rhonchi, no rales] , [no accessory muscle use] Abdominal: [soft], [ nontender to palpation], [no guarding], [no appreciable organomegaly] Ext: [no gross muscle atrophy], [no edema], [no contractures] Neuro: [no focal neuro deficits] Psych: [Alert], [oriented], [appropriate affect] - Labs CBC & Chem 7: 06/17/19 06:25 06/17/19 06:25 Labs: Abnormal Lab Results - Last 24 Hours (Table) 06/17/19 06/17/19 Range/Units 06:25 06:25 WBC 13.5 H (3.8-10.6) k/uL Hgb 11.0 L D (11.4-16.0) gm/dL Hct 33.4 L (34.0-46.0) % Neutrophils # 10.4 H (1.3-7.7) k/uL Chloride 108 H (98-107) mmol/L BUN 20 H (7-17) mg/dL Assessment and Plan Assessment: Assessment and plan Sinusitis GERD Dyslipidemia Depression Morbid obesity with BMI 41.8 Plans: Continue Flonase and liquid Claritin. Plans: Continue Protonix IV. Plans: Restart Lipitor when able to tolerate diet. Plans: Restart Effexor when able to tolerate diet. Status post gastric sleeve. Upper GI series this morning shows complete obstruction likely due to swelling. Decadron started. Plans: Management as per surgery. Thank you for this consultation. Please call with any additional questions or concerns.
[2019-06-18] MEDS: DEXAMETHASONE SOD PHOSPHATE 4 MG/ML 1 ML VIAL IV SCH ×3 (07:47→18:24)
[2019-06-18] MEDS: KETOROLAC 30 MG/ML 1 ML VIAL IVP SCH ×2 (07:47→11:59)
[2019-06-18] MEDS: PANTOPRAZOLE 40 MG/10 ML VIAL IV SCH (07:47)
[2019-06-18] MEDS: cycloSPORINE 0.05% OPHTH 0.4 ML DROPERETTE BOTH EYES SCH ×2 (07:48→21:31)
[2019-06-18] MEDS: FLUTICASONE 50MCG/SPRAY NASAL 16GM EA NOSTRIL SCH (07:48)
[2019-06-18] MEDS: ENOXAPARIN 40 MG/0.4 ML SYRINGE SQ SCH ×2 (07:48→21:29)
[2019-06-18] MEDS ORDERED: BISACODYL 5 MG TABLET.DR PO PRN (08:00)
[2019-06-18] MEDS: LACTATED RINGERS 1,000 ML IV SCH (09:17)
[2019-06-18] MEDS: ALBUTEROL NEBULIZED 2.5 MG/3 ML INHALATION SCH ×4 (09:37→20:51)
--- NOTE | 2019-06-18 10:01 | FL ---
EXAMINATION TYPE: FL UGI DATE OF EXAM: 06/18/2019 COMPARISON: 06/17/2019 HISTORY: Status post gastric sleeve, reevaluation. TECHNIQUE: A single contrast upper GI study was performed with Isovue 370. 1 minute and 14 seconds o f fluoroscopy time was utilized with 20 images saved. FINDINGS: There is markedly delayed flow at the gastroesophageal junction with only a very diminutive amount of contrast seen extending into the stomach after prolonged imaging time. No evidence of leak in the distal esophagus. Stomach cannot yet be evaluated. IMPRESSION: High-grade obstruction at the level of the gastroesophageal junction with only a trace am ount of contrast extending into the stomach after prolonged imaging.
--- NOTE | 2019-06-18 11:02 | P.PN ---
Subjective Progress Note Date: 06/18/19 Principal diagnosis: Postoperative management Patient was seen and examined. No acute events overnight. Patient currently ice chips. She denies any chest or shortness of breath or palpitations. Complains of spitting up when drinking ice water. No fever or chills. No bowel movement or passing gas. Urinating freely. Objective - Vital Signs Vital signs: Vital Signs Temp 98.1 F 06/18/19 07:00 Pulse 85 06/18/19 07:00 Resp 18 06/18/19 07:00 BP 132/77 06/18/19 07:00 Pulse Ox 95 06/18/19 07:00 Intake & Output 06/17/19 06/18/19 06/18/19 18:59 06:59 18:59 Weight 108.862 kg Other: # Voids 1 - Exam General: [non toxic], [no distress], [appears at stated age] Derm: [warm], [dry] Head: [atraumatic], [normocephalic], [symmetric] Eyes: [EOMI], [no lid lag], [anicteric sclera] Mouth: [no lip lesion], [mucus membranes moist] Cardiovascular: [S1S2 reg], [no murmur], [positive posterior tibial pulse bilateral], Lungs: [CTA bilateral], [no rhonchi, no rales] , [no accessory muscle use] Abdominal: [soft], [ nontender to palpation], [no guarding], [no appreciable organomegaly] Ext: [no gross muscle atrophy], [no edema], [no contractures] Neuro: [no focal neuro deficits] Psych: [Alert], [oriented], [appropriate affect] - Labs CBC & Chem 7: 06/17/19 06:25 06/17/19 06:25 Assessment and Plan Assessment: Assessment and plan Acute blood loss anemia Leukocytosis Sinusitis GERD Dyslipidemia Depression Morbid obesity with BMI 41.8 Likely due to surgery. Plans: Continue to monitor. Transfuse if hemoglobin le ss than 7. Likely due to steroids. No signs of infection. Plans: Continue to monitor. Plans: Continue Flonase and liquid Claritin. Plans: Continue Protonix IV. Plans: Restart Lipitor when able to tolerate diet. Plans: Restart Effexor when able to tolerate diet. Status post gastric sleeve. Upper GI series this morning shows obstruction with small amount of liquid able to transition with time. Decadron started. Plans: Management as per surgery. Thank you for this consultation. Please call with any additional questions or concerns.
[2019-06-18] MEDS: LORATADINE ORAL SOLN 120 MG/120 ML BOTTLE PO SCH (11:04)
--- NOTE | 2019-06-18 11:07 | P.PN ---
Subjective Progress Note Date: 06/18/19 CHIEF COMPLAINT: Morbid obesity HISTORY OF PRESENT ILLNESS: Patient is status post laparoscopic removal of lap band and sleeve gastrectomy. Postop day #2. Patient examined at the bedside. Denies abdominal pain. Denies nausea or vomiting. Repeat esophagram this morning reveals high grade obstruction at the level of the gastroesophageal junction with only a trace amount of contrast extending into the stomach after prolonged imaging. Patient reports the ice chips feel like they are going down easier today and reports less belching. PHYSICAL EXAM: VITAL SIGNS: Reviewed. GENERAL: Well-developed in no acute distress. HEENT: No sclera icterus. Extraocular movements grossly intact. Moist buccal mucosa. Head is atraumatic, normocephalic. ABDOMEN: Soft. Nondistended. Nontender. Laparoscopic incision sites clean dry and intact. NEUROLOGIC: Alert and oriented. Cranial nerves II through XII grossly intact. ASSESSMENT: 1. Morbid obesity, status post removal of lap band and sleeve gastrectomy PLAN: 1. NPO except ice chips and popsicles 2. Continue Decadron 4mg IV every 6 hours. Add Reglan 10mg IV q 6 hours. 3. Pain control 4. IS 10 times an hour 5. Activity as tolerated 6. Repeat UGI tomorrow morning Nurse practitioner note has been reviewed by physician. Signing provider agrees with the documented findings, assessment, and plan of care. Objective - Vital Signs Vital signs: Vital Signs Temp 98.1 F 06/18/19 07:00 Pulse 85 06/18/19 07:00 Resp 18 06/18/19 07:00 BP 132/77 06/18/19 07:00 Pulse Ox 95 06/18/19 07:00 Intake & Output 06/17/19 06/18/19 06/18/19 18:59 06:59 18:59 Weight 108.862 kg Other: # Voids 1 - Labs CBC & Chem 7: 06/17/19 06:25 06/17/19 06:25
[2019-06-18] MEDS: METOCLOPRAMIDE 5 MG/ML 2 ML VIAL IVP SCH ×2 (11:59→18:24)
[2019-06-18] MEDS ORDERED: KETOROLAC 30 MG/ML 1 ML VIAL IVP PRN (14:42)
[2019-06-18] MEDS: 0.9% NACL WITH KCL 20 MEQ/L 1,000 ML IV SCH ×2 (19:23→21:29)
[2019-06-19] MEDS: LACTATED RINGERS 1,000 ML IV SCH (00:22)
[2019-06-19] MEDS: DEXAMETHASONE SOD PHOSPHATE 4 MG/ML 1 ML VIAL IV SCH ×2 (00:42→05:57)
[2019-06-19] MEDS: METOCLOPRAMIDE 5 MG/ML 2 ML VIAL IVP SCH ×2 (00:47→05:53)
[2019-06-19] MEDS: FLUTICASONE 50MCG/SPRAY NASAL 16GM EA NOSTRIL SCH (05:57)
[2019-06-19 07:19] VITALS: RESP 15; TEMP 98.2
[2019-06-19] MEDS: cycloSPORINE 0.05% OPHTH 0.4 ML DROPERETTE BOTH EYES SCH (09:08)
[2019-06-19] MEDS: ENOXAPARIN 40 MG/0.4 ML SYRINGE SQ SCH (09:09)
[2019-06-19] MEDS: LORATADINE ORAL SOLN 120 MG/120 ML BOTTLE PO SCH (09:10)
[2019-06-19] MEDS: PANTOPRAZOLE 40 MG/10 ML VIAL IV SCH (09:10)
[2019-06-19] MEDS: ALBUTEROL NEBULIZED 2.5 MG/3 ML INHALATION SCH ×3 (09:44→15:17)
--- NOTE | 2019-06-19 11:46 | FL ---
EXAMINATION TYPE: FL esophagus cervic/pharynx DATE OF EXAM: 06/19/2019 CLINICAL HISTORY: Status post gastric sleeve with obstruction COMPARISON: 06/18/2019 Contrast: Omnipaque 350 50 mL The patient ingested oral contrast without difficulty. Noted are postsurgical changes of gastric slee ve. There continues to be mild obstruction at the GE junction however markedly improved since previou s examination. Contrast is noted to flow into the stomach and duodenum with only mild delay. No evide nce for leak at this time. IMPRESSION: Persistent but markedly improved obstruction at the GE junction. Contrast is noted to michelle w into the stomach and proximal small bowel. No evidence for leak
--- NOTE | 2019-06-19 12:07 | P.PN ---
Subjective Progress Note Date: 06/19/19 Principal diagnosis: Postoperative management Patient was seen and examined. No acute events overnight. Patient currently ice chips. She denies any chest or shortness of breath or palpitations. Urinating freely and had a bowel movement. No longer spitting up when drinking water. No abdominal pain. No nausea or vomiting. Upper GI study today shows markedly improved obstruction. Objective - Vital Signs Vital signs: Vital Signs Temp 98.2 F 06/19/19 07:00 Pulse 66 06/19/19 09:09 Resp 15 06/19/19 09:09 BP 113/68 06/19/19 07:00 Pulse Ox 96 06/19/19 07:00 Intake & Output 06/18/19 06/19/19 06/19/19 18:59 06:59 18:59 Intake Total 1200 Output Total 400 Balance 800 Intake: Intake, IV Titration 1200 Amount 0.9% NaCl with KCl 20 Meq 1200 /l 1,000 ml @ 100 mls/hr IV .Q10H JEAN MARIE Rx#: [id number] Output: Urine 400 Other: # Voids 3 2 - Exam General: [non toxic], [no distress], [appears at stated age] Derm: [warm], [dry] Head: [atraumatic], [normocephalic], [symmetric] Eyes: [EOMI], [no lid lag], [anicteric sclera] Mouth: [no lip lesion], [mucus membranes moist] Cardiovascular: [S1S2 reg], [no murmur], [positive posterior tibial pulse bilat eral], Lungs: [CTA bilateral], [no rhonchi, no rales] , [no accessory muscle use] Abdominal: [soft], [ nontender to palpation], [no guarding], [no appreciable organomegaly], [laparoscopic abdominal scars clean dry and intact] Ext: [no gross muscle atrophy], [no edema], [no contractures] Neuro: [no focal neuro deficits] Psych: [Alert], [oriented], [appropriate affect] - Labs CBC & Chem 7: 06/17/19 06:25 06/17/19 06:25 Assessment and Plan Assessment: Assessment and plan Acute blood loss anemia Leukocytosis Sinusitis GERD Dyslipidemia Depression Morbid obesity with BMI 41.8 Likely due to surgery. Plans: Continue to monitor. Transfuse if hemoglobin less than 7. Repeat CBC tomorrow morning. Likely due to steroids. No signs of infection. Plans: Continue to monitor. Repeat CBC tomorrow morning. Plans: Continue Flonase and liquid Claritin. Plans: Continue Protonix IV. Plans: Restart Lipitor when able to tolerate diet. Plans: Restart Effexor when able to tolerate diet. Status post gastric sleeve. Upper GI series this morning shows obstruction that is markedly improved. Decadron continued. Plans: Management as per surgery. Thank you for this consultation. Please call with any additional questions or concerns. Anticipated discharge possibly tomorrow.
--- NOTE | 2019-06-19 12:09 | P.PN ---
Subjective Progress Note Date: 06/19/19 CHIEF COMPLAINT: Morbid obesity HISTORY OF PRESENT ILLNESS: Patient is status post laparoscopic removal of lap band and sleeve gastrectomy. Postop day #3. Patient examined at the bedside. Denies abdominal pain. Denies nausea or vomiting. Repeat esophagram this morning reveals persistent but markedly improved obstruction GE junction. Contrast is noted to flow into the stomach and proximal small bowel. No evidence of leak. PHYSICAL EXAM: VITAL SIGNS: Reviewed. GENERAL: Well-developed in no acute distress. HEENT: No sclera icterus. Extraocular movements grossly intact. Moist buccal mucosa. Head is atraumatic, normocephalic. ABDOMEN: Soft. Nondistended. Nontender. Laparoscopic incision sites clean dry and intact. NEUROLOGIC: Alert and oriented. Cranial nerves II through XII grossly intact. ASSESSMENT: 1. Morbid obesity, status post removal of lap band and sleeve gastrectomy PLAN: 1. Begin bariatric liquid diet 2. Continue Decadron 4mg IV every 6 hours. Continue Reglan 10mg IV q 6 hours. 3. Pain control 4. IS 10 times an hour 5. Activity as tolerated Nurse practitioner note has been reviewed by physician. Signing provider agrees with the documented findings, assessment, and plan of care. Objective - Vital Signs Vital signs: Vital Signs Temp 98.2 F 06/19/19 07:00 Pulse 66 06/19/19 09:09 Resp 15 06/19/19 09:09 BP 113/68 06/19/19 07:00 Pulse Ox 96 06/19/19 07:00 Intake & Output 06/18/19 06/19/19 06/19/19 18:59 06:59 18:59 Intake Total 1200 Output Total 400 Balance 800 Intake: Intake, IV Titration 1200 Amount 0.9% NaCl with KCl 20 Meq 1200 /l 1,000 ml @ 100 mls/hr IV .Q10H JEAN MARIE Rx#: [id number] Output: Urine 400 Other: # Voids 3 2 - Labs CBC & Chem 7: 06/17/19 06:25 06/17/19 06:25
[2019-06-19 14:34] VITALS: BP 147/76; PULSE 69
== END 2019-06-19 15:33 | disposition home or self-care (01) | DRG 620 ==
LOC: 2ORMAIN 09:31 → 4SSUR 12:43
PROVIDERS: ADMIT Surgery; ATTEND Surgery
PROC: 8E0W4CZ Robotic Assisted Procedure of Trunk Region, Percutaneous Endoscopic Approach (ICD-10-PCS; 2019-06-16)
PROC: 0DB64Z3 Excision of Stomach, Percutaneous Endoscopic Approach, Vertical (ICD-10-PCS; principal; 2019-06-16 11:00)
PROC: 0DP64CZ Removal of Extraluminal Device from Stomach, Percutaneous Endoscopic Approach (ICD-10-PCS; 2019-06-16 11:00)
DX: E66.01 Morbid (severe) obesity due to excess calories (principal); D62 Acute posthemorrhagic anemia; D72.829 Elevated white blood cell count, unspecified; E78.5 Hyperlipidemia, unspecified; F32.9 Major depressive disorder, single episode, unspecified; I10 Essential (primary) hypertension; K21.9 Gastro-esophageal reflux disease without esophagitis; R13.10 Dysphagia, unspecified; T38.0X5A Adverse effect of glucocorticoids and synthetic analogues, initial encounter; Z68.41 Body mass index [BMI] 40.0-44.9, adult; Z79.899 Other long term (current) drug therapy; Z87.442 Personal history of urinary calculi; Z98.84 Bariatric surgery status; M54.30 Sciatica, unspecified side; Z88.0 Allergy status to penicillin; Z98.42 Cataract extraction status, left eye; Z98.41 Cataract extraction status, right eye; Z82.0 Family history of epilepsy and other diseases of the nervous system; Z80.8 Family history of malignant neoplasm of other organs or systems; Z90.49 Acquired absence of other specified parts of digestive tract; J32.9 Chronic sinusitis, unspecified; Z79.51 Long term (current) use of inhaled steroids
CPT/HCPCS: 74210; 74240; 80051; 82310; 82565; 83735; 84100; 84520; 85025; 88307; 94640; 94760; 94762

== ENCOUNTER → 2019-06-20 | Outpatient (CLI) | payer MEDICARE ==
[2019-06-20 13:19] VITALS: BP 159/78; PULSE 82; RESP 18; TEMP 98
[2019-06-20] MEDS: SODIUM CHLORIDE 0.9% 1,000 ML IV SCH ×2 (13:22→14:28)
== END ==
LOC: PROCWHC3 12:45
PROVIDERS: ATTEND Surgery
DX: E86.0 Dehydration (principal)
CPT/HCPCS: 96360; 96361

== ENCOUNTER → 2019-06-23 | Outpatient (CLI) | payer MEDICARE ==
[2019-06-23 13:54] VITALS: BP 142/85; PULSE 90; TEMP 97.8; BMI 41.6
== END | disposition home or self-care (01) ==
LOC: BARWHC3 13:17
PROVIDERS: ATTEND Surgery
DX: Z48.815 Encounter for surgical aftercare following surgery on the digestive system (principal); F33.41 Major depressive disorder, recurrent, in partial remission; M19.90 Unspecified osteoarthritis, unspecified site; Z98.84 Bariatric surgery status; Z79.1 Long term (current) use of non-steroidal anti-inflammatories (NSAID); Z79.899 Other long term (current) drug therapy
CPT/HCPCS: 97803; G0463; 99211

== ENCOUNTER → 2019-07-14 | Outpatient (CLI) | payer MEDICARE ==
[2019-07-14 15:02] VITALS: BP 130/78; PULSE 87; TEMP 98.4; BMI 39.5
--- NOTE | 2019-07-14 15:30 | P.HPBAR ---
Bariatric H&P - History & Physicial H&P Date: 07/14/19 History & Physicial: Visit/CC: one month sleeve Patient initial contact: Initial weight: 77.111 kg Initial weight in pounds: 170.00 Height: 5 ft 3.5 in Initial BMI: 29.6 Last weight: Current weight: 102.965 kg Current weight in pounds: 227.00 Current BMI: 39.5 [place] body weight (based on NIH guidelines): 53.297 kg Excess body weight loss: The patient is a 68 year-old F who presents for Bariatric Assessment. Patient resents today for sleeve gastrectomy follow-up. She is an excellent weight loss. He lost 12 pounds her last visit. She's had some mild GERD. Past Medical History Past Medical History: Osteoarthritis (OA) Additional Past Medical History / Comment(s): kidney stones, lap band, shoulder pain History of Any Multi-Drug Resistant Organisms: None Reported Past Surgical History: Bariatric Surgery, Cholecystectomy Additional Past Surgical History / Comment(s): lap band lap band removal/sleeve gastrectomy 06-16-20 Past Anesthesia/Blood Transfusion Reactions: Motion Sickness, Postoperative Nausea & Vomiting (PONV) Past Psychological History: No Psychological Hx Reported Smoking Status: Never smoker Past Alcohol Use History: Rare Past Drug Use History: None Reported - Past Family History Father Family Medical History: Cancer Additional Family Medical History / Comment(s): skin Sister(s) Family Medical History: Cancer Additional Family Medical History / Comment(s): skin Surgical - Exam Vital Signs Temp Pulse BP 98.4 F 87 130/78 07/14/19 14:57 07/14/19 14:57 07/14/19 14:57 - General well nourished, no distress - Eyes PERRL - ENT normal pinna - Neck no masses - Respiratory normal expansion - Cardiovascular Rhythm: regular Bariatric Assessment & Plan Plan: Status post sleeve gastrectomy. Patient's GERD will be treated with omeprazole. She'll follow-up in 4 weeks. Bariatric Checklist Checklist: Plan: Checklist: EGD: 1. Hiatal hernia: 2. H. Pylori: HgbA1c: Vitamin D: Smoking: Never smoker Primary care physician referral: [place] Psychiatry clearance: Cardiology clearance: Sleep study: Diet journal: VTE risk score: VTE risk level: Rehab needs at discharge:
== END | disposition home or self-care (01) ==
LOC: BARWHC3 14:27
PROVIDERS: ATTEND Surgery
DX: Z48.815 Encounter for surgical aftercare following surgery on the digestive system (principal); K21.9 Gastro-esophageal reflux disease without esophagitis; Z90.49 Acquired absence of other specified parts of digestive tract; Z98.84 Bariatric surgery status; Z79.899 Other long term (current) drug therapy
CPT/HCPCS: 97803; G0463; 99211

== ENCOUNTER → 2019-07-18 | Outpatient (CLI) | payer MEDICARE ==
--- NOTE | 2019-07-18 09:54 | BD ---
EXAMINATION TYPE: Axial Bone Density DATE OF EXAM: 07/18/2019 COMPARISON: Prior DEXA bone scan May 22, 2017. CLINICAL HISTORY: Postmenopausal female Height: 64 Weight: 227.3 FRAX RISK QUESTIONS: Alcohol (3 or more units per day): no Family History (Parent hip fracture): yes Glucocorticoids (More than 3mos): no (Ex: prednisone, prednisolone, methylprednisolone, dexamethasone, and hydrocortisone). History of Fracture in Adulthood: no Secondary Osteoporosis: 1. Type 1 Diabetes: no 2. Hyperthyroidism: no 3. Menopause before 45: no 4. Malnutrition: no 5. Chronic liver disease: no Rheumatoid Arthritis: no Current Tobacco Use: no RISK FACTORS HISTORY OF: Family History of Osteoporosis: yes Active: sometimes Diet low in dairy products/other sources of calcium: yes Postmenopausal woman: age 49 Lost more than 2 inches in height since high school: yes MEDICATIONS: anti-depressant med, reflux med Additional History: EXAM MEASUREMENTS: Bone mineral densitometry was performed using the Powered System. Bone mineral density as measured about the Lumbar spine is: ----- L1-L4(G/cm2): 1.091 T Score Values are as follows: ----- L2: -1.2 ----- L3: -1.2 ----- L4: 0.3 ----- L1-L4: -0.7 Bone mineral density has: increased 3.0 % since study of: 05.22.2017 Bone mineral density about the R hip (g/cm2): 0.842 Bone mineral density about the L hip (g/cm2): 0.871 T Score values are as follows: -----R Neck: -1.4 -----L Neck: -1.2 -----R Total: -0.5 -----L Total: -0.4 Bone mineral density has: increased 4.2 % since study of: 05.22.2017 IMPRESSION: Osteopenia (T Score between -2.5 and -1) remains present though bone density increased or improved fr om prior. There remains slightly increased risk of fracture and the patient may be considered for treatment. Re-Screen 2-5 years. NOTE: T-SCORE=SD OF THE YOUNG ADULT MEAN.
--- NOTE | 2019-07-21 10:03 | MM ---
Reason for exam: screening (asymptomatic). Last mammogram was performed 1 year and 2 months ago. History: Patient is postmenopausal. Family history of breast cancer in paternal aunt at age 80. Took hormonal contraceptives for 10 years. Took estrogen for 2 years beginning at age 46. Physical Findings: A clinical breast exam by your physician is recommended on an annual basis and results should be correlated with mammographic findings. MG 3D Screening Mammo W/Cad Bilateral CC and MLO view(s) were taken. Prior study comparison: May 08, 2018, bilateral MG 3d screening mammo w/cad. April 12, 2017, bilateral MG 3d screening mammo w/cad. There are scattered fibroglandular densities. There is no discrete abnormality. ASSESSMENT: Negative, BI-RAD 1 RECOMMENDATION: Routine screening mammogram of both breasts in 1 year.
== END | disposition home or self-care (01) ==
LOC: RADMAMWWP 08:16
PROVIDERS: ATTEND Obstetrics & Gynecology
DX: Z12.31 Encounter for screening mammogram for malignant neoplasm of breast (principal); M85.89 Other specified disorders of bone density and structure, multiple sites
CPT/HCPCS: 77063; 77067; 77080

== ENCOUNTER → 2019-07-18 | Outpatient (CLI) | payer MEDICARE ==
[2019-07-18 09:30] LABS: HCT 42.5 % (34.0-46.0); HGB 13.4 gm/dL (11.4-16.0); MCH 27.9 pg (25.0-35.0); MCHC 31.4 g/dL (31.0-37.0); MCV 88.6 fL (80.0-100.0); Mean Platelet Volume 7.5; Platelet Count 351 k/uL (150-450); RBC 4.79 m/uL (3.80-5.40); RDW 15.2 % (11.5-15.5); WBC 5.5 k/uL (3.8-10.6)
[2019-07-18 18:16] LABS: African American GFR (CKD) 87.2 (60.0-200.0); Albumin 4.3 g/dL (3.80-4.90); Albumin/Globulin Ratio 1.87 (1.60-3.17); Anion Gap 8.5 mmol/L (4.00-12.00); BUN/Creat Ratio 22.5 Ratio (12.00-20.00); Calcium 9.3 mg/dL (8.7-10.3); Carbon Dioxide 25.5 mmol/L (21.6-31.8); Globulin 2.3 g/dL (1.6-3.3); Non-African American GFR(CKD) 75.2 (60.0-200.0); Potassium 4.1 mmol/L (3.5-5.5); Total Bilirubin 0.4 mg/dL (0.2-1.2); Total Protein 6.6 g/dL (6.2-8.2)
[2019-07-18 18:45] LABS: Folate, Serum 10.2 ng/mL
== END | disposition home or self-care (01) ==
LOC: LABWHC1 08:21
PROVIDERS: ATTEND Surgery
DX: E66.01 Morbid (severe) obesity due to excess calories (principal); E44.0 Moderate protein-calorie malnutrition
CPT/HCPCS: 36415; 80053; 82306; 82607; 82746; 84425; 84443; 85027

== ENCOUNTER → 2019-08-11 | Outpatient (CLI) | payer MEDICARE ==
[2019-08-11 13:30] VITALS: BP 145/75; PULSE 85; TEMP 98.2; BMI 38.9
--- NOTE | 2019-08-11 13:35 | P.HPBAR ---
Bariatric H&P - History & Physicial H&P Date: 08/11/19 History & Physicial: Visit/CC: 6 week sleeve f/u Patient initial contact: Initial weight: 77.111 kg Initial weight in pounds: 170.00 Height: 5 ft 3.5 in Initial BMI: 29.6 Last weight: Current weight: 101.151 kg Current weight in pounds: 223.00 Current BMI: 38.9 [place] body weight (based on NIH guidelines): 53.297 kg Excess body weight loss: The patient is a 68 year-old F who presents for Bariatric Assessment. Today for sleeve gastric follow-up. She's had some Ac GERD. She's had a diminished weight loss over the last month. Past Medical History Past Medical History: Osteoarthritis (OA) Additional Past Medical History / Comment(s): kidney stones, lap band, shoulder pain History of Any Multi-Drug Resistant Organisms: None Reported Past Surgical History: Bariatric Surgery, Cholecystectomy Additional Past Surgical History / Comment(s): lap band lap band removal/sleeve gastrectomy 06-16-20 Past Anesthesia/Blood Transfusion Reactions: Motion Sickness, Postoperative Nausea & Vomiting (PONV) Past Psychological History: No Psychological Hx Reported Smoking Status: Never smoker Past Alcohol Use History: Rare Past Drug Use History: None Reported - Past Family History Mother Family Medical History: Dementia Father Family Medical History: Cancer Additional Family Medical History / Comment(s): skin Sister(s) Family Medical History: Cancer Additional Family Medical History / Comment(s): skin Surgical - Exam Vital Signs Temp Pulse BP 98.2 F 85 145/75 08/11/19 13:28 08/11/19 13:28 08/11/19 13:28 - General well developed, well nourished, no distress - Eyes PERRL - ENT normal pinna - Neck no masses - Respiratory normal expansion - Cardiovascular Rhythm: regular - Abdomen Abdomen: soft, non tender Bariatric Assessment & Plan Plan: Status post sleeve yesterday. Patient's GERD is minimal will be observed. She'll follow-up in 4 weeks. She will improve her dietary choices. Bariatric Checklist Checklist: Plan: Checklist: EGD: 1. Hiatal hernia: 2. H. Pylori: HgbA1c: Vitamin D: Smoking: Never smoker Primary care physician referral: [place] Psychiatry clearance: Cardiology clearance: Sleep study: Diet journal: VTE risk score: VTE risk level: Rehab needs at discharge:
== END | disposition home or self-care (01) ==
LOC: BARWHC3 12:49
PROVIDERS: ATTEND Surgery
DX: Z48.815 Encounter for surgical aftercare following surgery on the digestive system (principal); K21.9 Gastro-esophageal reflux disease without esophagitis; Z98.84 Bariatric surgery status; Z90.49 Acquired absence of other specified parts of digestive tract
CPT/HCPCS: 99211

== ENCOUNTER → 2019-09-08 | Outpatient (CLI) | payer MEDICARE ==
[2019-09-08 13:10] VITALS: BP 138/82; PULSE 76; TEMP 97.6; BMI 38.2
[2019-09-08 14:13] LABS: HCT 42.1 % (34.0-46.0); HGB 13.6 gm/dL (11.4-16.0); MCH 27.7 pg (25.0-35.0); MCHC 32.2 g/dL (31.0-37.0); MCV 85.9 fL (80.0-100.0); Mean Platelet Volume 7.3; Platelet Count 322 k/uL (150-450); RDW 14.2 % (11.5-15.5); WBC 8.7 k/uL (3.8-10.6)
[2019-09-08 21:11] LABS: African American GFR (CKD) 87.2 (60.0-200.0); Albumin 4.1 g/dL (3.80-4.90); Albumin/Globulin Ratio 1.71 (1.60-3.17); BUN/Creat Ratio 23.75 Ratio (12.00-20.00); Calcium 9.2 mg/dL (8.7-10.3); Folate, Serum 19.8 ng/mL; Globulin 2.4 g/dL (1.6-3.3); Non-African American GFR(CKD) 75.2 (60.0-200.0); Potassium 4.2 mmol/L (3.5-5.5); Total Bilirubin 0.3 mg/dL (0.2-1.2); Total Protein 6.5 g/dL (6.2-8.2)
== END | disposition home or self-care (01) ==
LOC: BARWHC3 12:47
PROVIDERS: ATTEND Surgery
DX: E66.01 Morbid (severe) obesity due to excess calories (principal); Z68.38 Body mass index [BMI] 38.0-38.9, adult; Z98.84 Bariatric surgery status
CPT/HCPCS: 84425; 80053; 82607; 82746; 84443; 85027; 82306; 97803; 36415; G0463; 99211

== ENCOUNTER → 2019-11-24 | Outpatient (CLI) | payer MEDICARE ==
[2019-11-24 13:53] VITALS: BP 130/82; PULSE 82; RESP 20; TEMP 98.5; BMI 36.9
--- NOTE | 2019-11-24 14:18 | P.HPBAR ---
Bariatric H&P - History & Physicial H&P Date: 11/24/19 History & Physicial: Visit/CC: Follow up visit Patient initial contact: Initial weight: 114.169 kg Initial weight in pounds: 251.70 Height: 5 ft 3.5 in Initial BMI: 43.9 Last weight: Current weight: 96.026 kg Current weight in pounds: 211.70 Current BMI: 36.9 [place] body weight (based on NIH guidelines): 53.297 kg Excess body weight loss: 29.8% The patient is a 69 year-old F who presents for Bariatric Assessment. Patient presents today for bariatric follow-up. She has complaints of some mild GERD. She states occurs intermittent in nature. She's lost another 8 pounds. Past Medical History Past Medical History: Osteoarthritis (OA) Additional Past Medical History / Comment(s): kidney stones, lap band, shoulder pain History of Any Multi-Drug Resistant Organisms: None Reported Past Surgical History: Bariatric Surgery, Cholecystectomy Additional Past Surgical History / Comment(s): lap band lap band removal/sleeve gastrectomy 06-16-20 Past Anesthesia/Blood Transfusion Reactions: Motion Sickness, Postoperative Nausea & Vomiting (PONV) Smoking Status: Never smoker - Past Family History Father Family Medical History: Cancer Additional Family Medical History / Comment(s): skin Sister(s) Family Medical History: Cancer Additional Family Medical History / Comment(s): skin Surgical - Exam Vital Signs Temp Pulse Resp BP 98.5 F 82 20 130/82 11/24/19 13:47 11/24/19 13:47 11/24/19 13:47 11/24/19 13:47 - General well developed, well nourished, no distress - Eyes PERRL - ENT normal pinna - Neck no masses - Respiratory normal expansion - Cardiovascular Rhythm: regular - Abdomen Abdomen: soft, non tender Bariatric Assessment & Plan Plan: Status post sleeve gastrectomy. Patient's GERD is intermittent in nature. She'll continue her medical management. She will follow-up in 4 weeks. Bariatric Checklist Checklist: Plan: Checklist: EGD: 1. Hiatal hernia: 2. H. Pylori: HgbA1c: Vitamin D: Smoking: Never smoker Primary care physician referral: [place] Psychiatry clearance: Cardiology clearance: Sleep study: Diet journal: VTE risk score: VTE risk level: Rehab needs at discharge:
== END | disposition home or self-care (01) ==
LOC: BARWHC3 13:09
PROVIDERS: ATTEND Surgery
DX: Z48.815 Encounter for surgical aftercare following surgery on the digestive system (principal); K21.9 Gastro-esophageal reflux disease without esophagitis; Z98.84 Bariatric surgery status; Z90.49 Acquired absence of other specified parts of digestive tract
CPT/HCPCS: 99211

== ENCOUNTER → 2020-01-19 | Outpatient (CLI) | payer MEDICARE ==
[2020-01-19 13:58] VITALS: BP 131/73; PULSE 83; TEMP 98.7; BMI 36.4
--- NOTE | 2020-01-19 14:09 | P.HPBAR ---
Bariatric H&P - History & Physicial H&P Date: 01/19/20 History & Physicial: Visit/CC: six month follow up Patient initial contact: Initial weight: 114.169 kg Initial weight in pounds: 251.70 Height: 5 ft 3.5 in Initial BMI: 43.9 Last weight: Current weight: 94.801 kg Current weight in pounds: 209.00 Current BMI: 36.4 [place] body weight (based on NIH guidelines): 53.297 kg Excess body weight loss: 31.8% The patient is a 69 year-old F who presents for Bariatric Assessment. Patient r ents today for sleeve gastrectomy follow-up she had some mild GERD. Past Medical History Past Medical History: Osteoarthritis (OA) Additional Past Medical History / Comment(s): kidney stones, lap band, shoulder pain History of Any Multi-Drug Resistant Organisms: None Reported Past Surgical History: Bariatric Surgery, Cholecystectomy Additional Past Surgical History / Comment(s): lap band lap band removal/sleeve gastrectomy 06-16-20 Past Anesthesia/Blood Transfusion Reactions: Motion Sickness, Postoperative Nausea & Vomiting (PONV) Past Psychological History: No Psychological Hx Reported Smoking Status: Never smoker Past Alcohol Use History: Rare Past Drug Use History: None Reported - Past Family History Mother Family Medical History: Dementia Father Family Medical History: Cancer Additional Family Medical History / Comment(s): skin Sister(s) Family Medical History: Cancer Additional Family Medical History / Comment(s): skin Surgical - Exam Vital Signs Temp Pulse BP 98.7 F 83 131/73 01/19/20 13:56 01/19/20 13:56 01/19/20 13:56 - General well developed, well nourished, no distress - Eyes PERRL - ENT normal pinna - Neck no masses - Respiratory normal expansion - Cardiovascular Rhythm: regular - Abdomen Abdomen: soft, non tender Bariatric Assessment & Plan Plan: Patient's there is minimal she'll be observed. She'll follow-up in 4 weeks. Bariatric Checklist Checklist: Plan: Checklist: EGD: 1. Hiatal hernia: 2. H. Pylori: HgbA1c: Vitamin D: Smoking: Never smoker Primary care physician referral: [place] Psychiatry clearance: Cardiology clearance: Sleep study: Diet journal: VTE risk score: VTE risk level: Rehab needs at discharge:
== END | disposition home or self-care (01) ==
LOC: BARWHC3 12:53
PROVIDERS: ATTEND Surgery
DX: Z48.815 Encounter for surgical aftercare following surgery on the digestive system (principal); Z98.84 Bariatric surgery status; E66.01 Morbid (severe) obesity due to excess calories; Z68.36 Body mass index [BMI] 36.0-36.9, adult
CPT/HCPCS: 97803; G0463; 99211

== ENCOUNTER → 2020-01-19 | Outpatient (CLI) | payer MEDICARE | END | disposition home or self-care (01) | LOC: LABWHC1 12:23 | PROVIDERS: ATTEND Surgery | DX: Z53.9 Procedure and treatment not carried out, unspecified reason (principal) ==

== ENCOUNTER → 2020-01-19 | Outpatient (CLI) | payer MEDICARE ==
[2020-01-19 14:45] LABS: HCT 42.1 % (34.0-46.0); HGB 13.8 gm/dL (11.4-16.0); MCH 29.1 pg (25.0-35.0); MCHC 32.8 g/dL (31.0-37.0); MCV 88.7 fL (80.0-100.0); Platelet Count 323 k/uL (150-450); RBC 4.75 m/uL (3.80-5.40); RDW 13.5 % (11.5-15.5); WBC 8.4 k/uL (3.8-10.6)
[2020-01-19 20:17] LABS: ALT 20 U/L (8-44); AST 24 U/L (13-35); African American GFR (CKD) 86.6 (60.0-200.0); Albumin/Globulin Ratio 1.39 (1.60-3.17); Alkaline Phosphatase 135 U/L (41-126); Calcium 9.1 mg/dL (8.7-10.3); Carbon Dioxide 25.6 mmol/L (21.6-31.8); Chloride 105 mmol/L (96-109); Globulin 2.8 g/dL (1.6-3.3); Glucose 94 mg/dL (70-110); Non-African American GFR(CKD) 74.7 (60.0-200.0); Potassium 3.8 mmol/L (3.5-5.5); Sodium 140 mmol/L (135-145); Total Bilirubin 0.3 mg/dL (0.2-1.2); Total Protein 6.7 g/dL (6.2-8.2)
[2020-01-19 20:30] LABS: Folate, Serum >24.0 ng/mL
== END | disposition home or self-care (01) ==
LOC: LABWHC1 12:25
PROVIDERS: ATTEND Surgery
DX: E44.0 Moderate protein-calorie malnutrition (principal); E55.9 Vitamin D deficiency, unspecified
CPT/HCPCS: 36415; 80053; 82306; 82607; 82746; 84425; 84443; 85027

== ENCOUNTER → 2020-03-22 | Outpatient (CLI) | payer MEDICARE ==
[2020-03-22 14:33] VITALS: BP 133/78; PULSE 83; RESP 18; TEMP 98.9; BMI 36.6
--- NOTE | 2020-03-22 14:52 | P.HPBAR ---
Bariatric H&P - History & Physicial H&P Date: 03/22/20 History & Physicial: Visit/CC: nine month follow up Patient initial contact: Initial weight: 114.169 kg Initial weight in pounds: 251.70 Height: 5 ft 3.5 in Initial BMI: 43.9 Last weight: Current weight: 95.254 kg Current weight in pounds: 210.00 Current BMI: 36.6 [place] body weight (based on NIH guidelines): 53.297 kg Excess body weight loss: 31.0% The patient is a 69 year-old F who presents for Bariatric Assessment. Patient presents today for lab band follow. Her weight has been stable. She skin 1 pounds her last visit. She's fluctuated 1 pounds over the last 4 months. She has some mild GERD. Past Medical History Past Medical History: Eye Disorder, Osteoarthritis (OA) Additional Past Medical History / Comment(s): kidney stones, lap band, shoulder pain; cataract bilateral History of Any Multi-Drug Resistant Organisms: None Reported Past Surgical History: Bariatric Surgery, Cholecystectomy Additional Past Surgical History / Comment(s): lap band lap band removal/sleeve gastrectomy 06-16-20; cataract bilateral surgery Past Anesthesia/Blood Transfusion Reactions: Motion Sickness, Postoperative Nausea & Vomiting (PONV) Past Psychological History: No Psychological Hx Reported Smoking Status: Never smoker Past Alcohol Use History: Rare Past Drug Use History: None Reported - Past Family History Mother Family Medical History: Dementia Father Family Medical History: Cancer Additional Family Medical History / Comment(s): skin Sister(s) Family Medical History: Cancer Additional Family Medical History / Comment(s): skin Surgical - Exam Vital Signs Temp Pulse Resp BP 98.9 F 83 18 133/78 03/22/20 14:26 03/22/20 14:26 03/22/20 14:26 03/22/20 14:26 - General well developed, well nourished - Eyes PERRL - ENT normal pinna - Neck no masses - Respiratory normal expansion - Cardiovascular Rhythm: regular - Abdomen Abdomen: soft, non tender Bariatric Assessment & Plan Plan: Status post gastric sleeve. Patient will follow-up in 4 weeks. Her GERD is minimal will be observed. Bariatric Checklist Checklist: Plan: Checklist: EGD: 1. Hiatal hernia: 2. H. Pylori: HgbA1c: Vitamin D: Smoking: Never smoker Primary care physician referral: [place] Psychiatry clearance: Cardiology clearance: Sleep study: Diet journal: VTE risk score: VTE risk level: Rehab needs at discharge:
== END | disposition home or self-care (01) ==
LOC: BARWHC3 14:16
PROVIDERS: ATTEND Surgery
DX: Z48.815 Encounter for surgical aftercare following surgery on the digestive system (principal); Z98.84 Bariatric surgery status; E66.01 Morbid (severe) obesity due to excess calories; Z68.36 Body mass index [BMI] 36.0-36.9, adult
CPT/HCPCS: 97803; G0463; 99211

== ENCOUNTER → 2020-04-19 | Outpatient (CLI) | payer MEDICARE ==
[2020-04-19 14:05] VITALS: BP 134/85; PULSE 76; RESP 16; TEMP 98.9; BMI 36.9
--- NOTE | 2020-04-19 15:37 | P.HPBAR ---
Bariatric H&P - History & Physicial H&P Date: 04/19/20 History & Physicial: Visit/CC: f/u Patient initial contact: Initial weight: 114.169 kg Initial weight in pounds: 251.70 Height: 5 ft 3.5 in Initial BMI: 43.9 Last weight: Current weight: 96.162 kg Current weight in pounds: 212.00 Current BMI: 36.9 [place] body weight (based on NIH guidelines): 53.297 kg Excess body weight loss: 29.5% The patient is a 69 year-old F who presents for Bariatric Assessment. Patient rents today for sleeve gastrectomy follow-up. She's had some mild GERD. Her weight has increased to pounds since her last visit. Past Medical History Past Medical History: Eye Disorder, Osteoarthritis (OA) Additional Past Medical History / Comment(s): kidney stones, lap band, shoulder pain; cataract bilateral History of Any Multi-Drug Resistant Organisms: None Reported Past Surgical History: Bariatric Surgery, Cholecystectomy Additional Past Surgical History / Comment(s): lap band lap band removal/sleeve gastrectomy 06-16-20; cataract bilateral surgery Past Anesthesia/Blood Transfusion Reactions: Motion Sickness, Postoperative Nausea & Vomiting (PONV) Past Psychological History: No Psychological Hx Reported Smoking Status: Never smoker Past Alcohol Use History: Rare Past Drug Use History: None Reported - Past Family History Mother Family Medical History: Dementia Father Family Medical History: Cancer Additional Family Medical History / Comment(s): skin Sister(s) Family Medical History: Cancer Additional Family Medical History / Comment(s): skin Surgical - Exam Vital Signs Temp Pulse Resp BP 98.9 F 76 16 134/85 04/19/20 14:03 04/19/20 14:03 04/19/20 14:03 04/19/20 14:03 - General well developed, well nourished, no distress - Eyes PERRL - ENT normal pinna - Neck no masses - Respiratory normal expansion - Cardiovascular Rhythm: regular - Abdomen Abdomen: soft, non tender Bariatric Assessment & Plan Plan: Status post sleeve gastrectomy. Patient's weight loss has plateaued. She has some minimal GERD which will be observed. She'll follow-up in 4 weeks. Bariatric Checklist Checklist: Plan: Checklist: EGD: 1. Hiatal hernia: 2. H. Pylori: HgbA1c: Vitamin D: Smoking: Never smoker Primary care physician referral: [place] Psychiatry clearance: Cardiology clearance: Sleep study: Diet journal: VTE risk score: VTE risk level: Rehab needs at discharge:
== END | disposition home or self-care (01) ==
LOC: BARWHC3 13:30
PROVIDERS: ATTEND Surgery
DX: Z48.815 Encounter for surgical aftercare following surgery on the digestive system (principal); Z98.84 Bariatric surgery status; Z90.49 Acquired absence of other specified parts of digestive tract
CPT/HCPCS: 99211

== ENCOUNTER → 2020-04-30 | Outpatient (CLI) | payer MEDICARE ==
--- NOTE | 2020-04-30 16:39 | CT ---
EXAMINATION TYPE: CT facial bones wo con DATE OF EXAM: 04/30/2020 COMPARISON: None HISTORY: Localized swelling, mass/lump on right forehead CT DLP: 635.1 mGycm Automated exposure control for dose reduction was used. TECHNIQUE: CT scan of the sinuses is performed without contrast, axial images are obtained, coronal r eformatted images are also reviewed. FINDINGS: At the site of patient's symptomatology over the right eye and below the hairline, no discr ete mass is evident. The paranasal sinuses including the frontal, ethmoid, and maxillary sinuses bilaterally are well-ae rated without abnormal opacification. Right maxillary sinus shows some lobular soft tissue at the med ial aspect towards the ostiomeatal unit region, difficult to exclude small polyps. There is inflammat ory change present within the sphenoid sinus suspected, soft tissues present. Cerumen present in the external auditory canal on the right and left. The ostiomeatal complex shows postop change, bilateral antrostomies are present, correlate for surgical history Visualized portion of mastoid air cells show no abnormal opacification. The globes are intact bilate rally. IMPRESSION: Postop changes, correlate for appropriate history. Correlate for sinusitis, possible unde rlying polyp disease. No abnormality seen to account for patient's symptoms.
== END | disposition home or self-care (01) ==
LOC: RADCTMAIN 07:09
PROVIDERS: ATTEND Nurse Practitioner Adult Health
DX: R22.0 Localized swelling, mass and lump, head (principal); Z98.890 Other specified postprocedural states
CPT/HCPCS: 70486

== ENCOUNTER → 2020-05-31 | Outpatient (CLI) | payer MEDICARE ==
[2020-05-31 13:25] VITALS: BP 130/76; PULSE 64; RESP 18; TEMP 98.2
--- NOTE | 2020-06-10 11:55 | P.HPBAR ---
Bariatric H&P - History & Physicial H&P Date: 06/10/20 History & Physicial: Visit/CC: follow up Patient initial contact: Initial weight: 114.169 kg Initial weight in pounds: 251.70 Height: 5 ft 3.5 in Initial BMI: Last weight: Current weight: 95.708 kg Current weight in pounds: Current BMI: [place] body weight (based on NIH guidelines): Excess body weight loss: The patient is a 69 year-old F who presents for Bariatric Assessment. Patient presents today for sleeve gastric a fall. She's had some mild GERD. Her weight has been stable. Past Medical History Past Medical History: Eye Disorder, Osteoarthritis (OA) Additional Past Medical History / Comment(s): kidney stones, lap band, shoulder pain; cataract bilateral History of Any Multi-Drug Resistant Organisms: None Reported Past Surgical History: Bariatric Surgery, Cholecystectomy Additional Past Surgical History / Comment(s): lap band lap band removal/sleeve gastrectomy 06-16-20; cataract bilateral surgery Past Anesthesia/Blood Transfusion Reactions: Motion Sickness, Postoperative Nausea & Vomiting (PONV) Past Psychological History: No Psychological Hx Reported Smoking Status: Never smoker Past Alcohol Use History: Rare Past Drug Use History: None Reported - Past Family History Mother Family Medical History: Dementia Father Family Medical History: Cancer Additional Family Medical History / Comment(s): skin Sister(s) Family Medical History: Cancer Additional Family Medical History / Comment(s): skin Surgical - Exam Vital Signs Temp Pulse Resp BP 98.2 F 64 18 130/76 05/31/20 13:12 05/31/20 13:12 05/31/20 13:12 05/31/20 13:12 - General well developed, well nourished, no distress - Eyes PERRL - ENT normal pinna - Neck no masses - Respiratory normal expansion - Cardiovascular Rhythm: regular - Abdomen Abdomen: soft, non tender Bariatric Assessment & Plan Plan: Status post sleeve gastrectomy. Patient there is minimal will be observed. She'll follow-up in one month. Bariatric Checklist Checklist: Plan: Checklist: EGD: 1. Hiatal hernia: 2. H. Pylori: HgbA1c: Vitamin D: Smoking: Never smoker Primary care physician referral: [place] Psychiatry clearance: Cardiology clearance: Sleep study: Diet journal: VTE risk score: VTE risk level: Rehab needs at discharge:
== END | disposition home or self-care (01) ==
LOC: BARWHC3 12:49
PROVIDERS: ATTEND Surgery
DX: Z48.815 Encounter for surgical aftercare following surgery on the digestive system (principal); Z98.84 Bariatric surgery status
CPT/HCPCS: 99211

== ENCOUNTER → 2020-07-06 | Outpatient (CLI) | payer MEDICARE | END | disposition home or self-care (01) | LOC: LABWHC1 12:26 | PROVIDERS: ATTEND Nurse Practitioner Adult Health | DX: Z20.828 Contact with and (suspected) exposure to other viral communicable diseases (principal) | CPT/HCPCS: U0003; C9803 ==

== ENCOUNTER → 2020-08-16 | Outpatient (CLI) | payer MEDICARE ==
[2020-08-16 13:26] VITALS: BP 163/73; PULSE 44; RESP 18; TEMP 98; BMI 37.6
--- NOTE | 2020-08-16 14:26 | P.HPBAR ---
Bariatric H&P - History & Physicial H&P Date: 08/16/20 History & Physicial: Visit/CC: follow up Patient initial contact: Initial weight: 114.169 kg Initial weight in pounds: 251.70 Height: 5 ft 3.5 in Initial BMI: 43.9 Last weight: Current weight: 97.976 kg Current weight in pounds: 216.00 Current BMI: 37.6 [place] body weight (based on NIH guidelines): 53.297 kg Excess body weight loss: 26.6% The patient is a 69 year-old F who presents for Bariatric Assessment. Patient presents today for sleeve gastrectomy fall. She's had some issues with GERD. She is actually had weight gain. Past Medical History Past Medical History: Eye Disorder, Osteoarthritis (OA) Additional Past Medical History / Comment(s): kidney stones, lap band, shoulder pain; cataract bilateral History of Any Multi-Drug Resistant Organisms: None Reported Past Surgical History: Bariatric Surgery, Cholecystectomy Additional Past Surgical History / Comment(s): lap band lap band removal/sleeve gastrectomy 06-16-20; cataract bilateral surgery Past Anesthesia/Blood Transfusion Reactions: Motion Sickness, Postoperative Nausea & Vomiting (PONV) Past Psychological History: No Psychological Hx Reported Smoking Status: Never smoker Past Alcohol Use History: Rare Past Drug Use History: None Reported - Past Family History Mother Family Medical History: Dementia Father Family Medical History: Cancer Additional Family Medical History / Comment(s): skin Sister(s) Family Medical History: Cancer Additional Family Medical History / Comment(s): skin Surgical - Exam Vital Signs Temp Pulse Resp BP 98 F 44 L 18 163/73 08/16/20 13:17 08/16/20 13:17 08/16/20 13:17 08/16/20 13:17 - General well developed, well nourished, no distress - Eyes PERRL - ENT normal pinna - Neck no masses - Respiratory normal expansion - Cardiovascular Rhythm: regular - Abdomen Abdomen: soft, non tender Bariatric Assessment & Plan Plan: Status post sleeve yesterday. Patient's GERD is minimal and will be observed. Patient spent time with the dietitian to improve her diet in order to help her lose weight. Bariatric Checklist Checklist: Plan: Checklist: EGD: 1. Hiatal hernia: 2. H. Pylori: HgbA1c: Vitamin D: Smoking: Never smoker Primary care physician referral: [facility] Psychiatry clearance: Cardiology clearance: Sleep study: Diet journal: VTE risk score: VTE risk level: Rehab needs at discharge:
== END | disposition home or self-care (01) ==
LOC: BARWHC3 12:46
PROVIDERS: ATTEND Surgery
DX: Z48.815 Encounter for surgical aftercare following surgery on the digestive system (principal); K21.9 Gastro-esophageal reflux disease without esophagitis; E66.01 Morbid (severe) obesity due to excess calories; Z98.84 Bariatric surgery status; Z68.37 Body mass index [BMI] 37.0-37.9, adult; Z90.49 Acquired absence of other specified parts of digestive tract
CPT/HCPCS: 97803; G0463; 99211

== ENCOUNTER → 2020-11-11 | Outpatient (CLI) | payer MEDICARE ==
--- NOTE | 2020-11-12 11:46 | MM ---
Reason for exam: screening (asymptomatic). Last mammogram was performed 1 year and 4 months ago. History: Patient is postmenopausal. Family history of breast cancer in paternal aunt at age 80. Took hormonal contraceptives for 10 years. Took estrogen for 2 years beginning at age 46. Physical Findings: A clinical breast exam by your physician is recommended on an annual basis and results should be correlated with mammographic findings. MG 3D Screening Mammo W/Cad Bilateral CC and MLO view(s) were taken. Prior study comparison: July 18, 2019, bilateral MG 3d screening mammo w/cad. May 08, 2018, bilateral MG 3d screening mammo w/cad. There are scattered fibroglandular densities. There is no discrete abnormality. ASSESSMENT: Negative, BI-RAD 1 RECOMMENDATION: Routine screening mammogram of both breasts in 1 year.
== END | disposition home or self-care (01) ==
LOC: RADMAMWWP 08:22
PROVIDERS: ATTEND Internal Medicine
DX: Z12.31 Encounter for screening mammogram for malignant neoplasm of breast (principal); Z78.0 Asymptomatic menopausal state; Z80.3 Family history of malignant neoplasm of breast
CPT/HCPCS: 77063; 77067

== ENCOUNTER → 2020-11-15 | Outpatient (CLI) | payer MEDICARE ==
[2020-11-15 13:37] VITALS: BP 124/77; PULSE 82; RESP 18; TEMP 98.5; BMI 37.8
[2020-11-15 15:10] LABS: HCT 42.6 % (34.0-46.0); HGB 13.7 gm/dL (11.4-16.0); MCH 27.7 pg (25.0-35.0); MCHC 32.1 g/dL (31.0-37.0); MCV 86.3 fL (80.0-100.0); Mean Platelet Volume 7.2; Platelet Count 343 k/uL (150-450); RBC 4.94 m/uL (3.80-5.40); RDW 14.2 % (11.5-15.5)
[2020-11-15 22:12] LABS: % Iron Saturation 8.71 (12.00-45.00); ALT 20 U/L (8-44); AST 26 U/L (13-35); African American GFR (CKD) 86.6 (60.0-200.0); Albumin/Globulin Ratio 1.68 (1.60-3.17); Alkaline Phosphatase 147 U/L (41-126); Calcium 9.1 mg/dL (8.7-10.3); Carbon Dioxide 25.8 mmol/L (21.6-31.8); Chloride 106 mmol/L (96-109); Ferritin 17.1 ng/mL (10.0-291.0); Folate, Serum >24.0 ng/mL; Globulin 2.5 g/dL (1.6-3.3); Glucose 87 mg/dL (70-110); Iron 33 ug/dL (50-170); Magnesium 2.2 mg/dL (1.5-2.4); Non-African American GFR(CKD) 74.7 (60.0-200.0); Potassium 4.7 mmol/L (3.5-5.5); Sodium 141 mmol/L (135-145); Total Bilirubin 0.3 mg/dL (0.2-1.2); Total Iron Binding Capacity 379 ug/dL (228-460); Total Protein 6.7 g/dL (6.2-8.2)
--- NOTE | 2020-11-16 11:42 | P.HPBAR ---
Bariatric H&P - History & Physicial H&P Date: 11/15/20 History & Physicial: Visit/CC: Follow up Patient initial contact: Initial weight: 114.169 kg Initial weight in pounds: 251.70 Height: 5 ft 3.5 in Initial BMI: 43.9 Last weight: Current weight: 98.43 kg Current weight in pounds: 217.00 Current BMI: 37.8 [place] body weight (based on NIH guidelines): 53.297 kg Excess body weight loss: 25.8% The patient is a 69 year-old F who presents for Bariatric Assessment. Patient presents today for sleeve gastrectomy fall. She's had some mild GERD. She otherwise feels well Past Medical History Past Medical History: Eye Disorder, Osteoarthritis (OA) Additional Past Medical History / Comment(s): kidney stones, lap band, shoulder pain; cataract bilateral History of Any Multi-Drug Resistant Organisms: None Reported Past Surgical History: Bariatric Surgery, Cholecystectomy Additional Past Surgical History / Comment(s): lap band lap band removal/sleeve gastrectomy 06-16-20; cataract bilateral surgery Past Anesthesia/Blood Transfusion Reactions: Motion Sickness, Postoperative Nausea & Vomiting (PONV) Past Psychological History: No Psychological Hx Reported Smoking Status: Never smoker Past Alcohol Use History: Rare Past Drug Use History: None Reported - Past Family History Mother Family Medical History: Dementia Father Family Medical History: Cancer Additional Family Medical History / Comment(s): skin Sister(s) Family Medical History: Cancer Additional Family Medical History / Comment(s): skin Surgical - Exam Vital Signs Temp Pulse Resp BP 98.5 F 82 18 124/77 11/15/20 13:31 11/15/20 13:31 11/15/20 13:31 11/15/20 13:31 - General well developed, well nourished, no distress - Eyes PERRL - ENT normal pinna - Neck no masses - Respiratory normal expansion - Cardiovascular Rhythm: regular - Abdomen Abdomen: soft, non tender Results - Labs 11/15/20 14:55 11/15/20 14:55 Abnormal Lab Results - Last 24 Hours (Table) 11/15/20 Range/Units 14:55 BUN/Creatinine Ratio 25.00 H (12.00-20.00) Ratio Iron 33 L (50-170) ug/dL % Saturation 8.71 L (12.00-45.00) Alkaline Phosphatase 147 H (41-126) U/L Vitamin B12 974.0 H (200.0-944.0) pg/mL Diabetes panel 11/15/20 Range/Units 14:55 Sodium 141 (135-145) mmol/L Potassium 4.7 (3.5-5.5) mmol/L Chloride 106 (96-109) mmol/L Carbon Dioxide 25.8 (21.6-31.8) mmol/L BUN 20.0 (9.0-27.0) mg/dL Creatinine 0.8 (0.6-1.5) mg/dL Glucose 87 (70-110) mg/dL Calcium 9.1 (8.7-10.3) mg/dL AST 26 (13-35) U/L ALT 20 (8-44) U/L Alkaline Phosphatase 147 H (41-126) U/L Total Protein 6.7 (6.2-8.2) g/dL Albumin 4.20 (3.80-4.90) g/dL Thyroid panel 11/15/20 Range/Units 14:55 TSH 3.030 (0.350-5.500) uIU/mL Calcium panel 11/15/20 Range/Units 14:55 Calcium 9.1 (8.7-10.3) mg/dL Albumin 4.20 (3.80-4.90) g/dL Pituitary panel 11/15/20 Range/Units 14:55 Sodium 141 (135-145) mmol/L Potassium 4.7 (3.5-5.5) mmol/L Chloride 106 (96-109) mmol/L Carbon Dioxide 25.8 (21.6-31.8) mmol/L BUN 20.0 (9.0-27.0) mg/dL Creatinine 0.8 (0.6-1.5) mg/dL Glucose 87 (70-110) mg/dL Calcium 9.1 (8.7-10.3) mg/dL TSH 3.030 (0.350-5.500) uIU/mL Adrenal panel 11/15/20 Range/Units 14:55 Sodium 141 (135-145) mmol/L Potassium 4.7 (3.5-5.5) mmol/L Chloride 106 (96-109) mmol/L Carbon Dioxide 25.8 (21.6-31.8) mmol/L BUN 20.0 (9.0-27.0) mg/dL Creatinine 0.8 (0.6-1.5) mg/dL Glucose 87 (70-110) mg/dL Calcium 9.1 (8.7-10.3) mg/dL Total Bilirubin 0.3 (0.2-1.2) mg/dL AST 26 (13-35) U/L ALT 20 (8-44) U/L Alkaline Phosphatase 147 H (41-126) U/L Total Protein 6.7 (6.2-8.2) g/dL Albumin 4.20 (3.80-4.90) g/dL Bariatric Assessment & Plan Plan: Status post sleeve gastrectomy. Patient's GERD is minimal will be observed. She'll follow-up in 8 weeks. Bariatric Checklist Checklist: Plan: Checklist: EGD: 1. Hiatal hernia: 2. H. Pylori: HgbA1c: Vitamin D: Smoking: Never smoker Primary care physician referral: oh kolb Psychiatry clearance: Cardiology clearance: Sleep study: Diet journal: VTE risk score: VTE risk level: Rehab needs at discharge:
[2020-11-16 13:00] LABS: Zinc, Serum 58 ug/dL (60-130)
[2020-11-17 13:02] LABS: Vit B1(Thiamine) 70 ug/L (38-122)
[2020-11-17 13:25] LABS: Vitamin A 50 ug/dL (38-106)
== END ==
LOC: BARWHC3 13:17
PROVIDERS: ATTEND Surgery
DX: K21.9 Gastro-esophageal reflux disease without esophagitis (principal); Z98.84 Bariatric surgery status; M19.90 Unspecified osteoarthritis, unspecified site
CPT/HCPCS: 84255; 84425; 80053; 82607; 82728; 82746; 83540; 83550; 83735; 84443; 84590; 84630; 85027; 82306; G0463; 99211

== ENCOUNTER → 2021-01-31 | Outpatient (CLI) | payer MEDICARE ==
[2021-01-31 13:36] VITALS: BP 138/73; PULSE 80; RESP 18; TEMP 98.5; BMI 38.2
--- NOTE | 2021-01-31 14:21 | P.HPBAR ---
Bariatric H&P - History & Physicial H&P Date: 01/31/21 History & Physicial: Visit/CC: follow up Patient initial contact: Initial weight: 114.169 kg Initial weight in pounds: 251.70 Height: 5 ft 3.5 in Initial BMI: 43.9 Last weight: Current weight: 99.337 kg Current weight in pounds: 219.00 Current BMI: 38.2 [place] body weight (based on NIH guidelines): 53.297 kg Excess body weight loss: 24.3% The patient is a 70 year-old F who presents for Bariatric Assessment. Patient transferred follow-up. She scans weight loss. She's had mild GERD. Past Medical History Past Medical History: Eye Disorder, Osteoarthritis (OA) Additional Past Medical History / Comment(s): kidney stones, lap band, shoulder pain; cataract bilateral History of Any Multi-Drug Resistant Organisms: None Reported Past Surgical History: Bariatric Surgery, Cholecystectomy Additional Past Surgical History / Comment(s): lap band lap band removal/sleeve gastrectomy 06-16-20; cataract bilateral surgery Past Anesthesia/Blood Transfusion Reactions: Motion Sickness, Postoperative Nausea & Vomiting (PONV) Past Psychological History: No Psychological Hx Reported Smoking Status: Never smoker Past Alcohol Use History: Rare Past Drug Use History: None Reported - Past Family History Father Family Medical History: Cancer Additional Family Medical History / Comment(s): skin Sister(s) Family Medical History: Cancer Additional Family Medical History / Comment(s): skin Surgical - Exam Vital Signs Temp Pulse Resp BP 98.5 F 80 18 138/73 01/31/21 13:31 01/31/21 13:31 01/31/21 13:31 01/31/21 13:31 - General well developed, well nourished, no distress - Eyes PERRL - ENT normal pinna - Neck no masses - Respiratory normal expansion - Cardiovascular Rhythm: regular - Abdomen Abdomen: soft, non tender Bariatric Assessment & Plan Plan: Status post sleeve gastrectomy. Patient is minimal bleeding observed. She'll follow-up in 8 weeks Bariatric Checklist Checklist: Plan: Checklist: EGD: 1. Hiatal hernia: 2. H. Pylori: HgbA1c: Vitamin D: Smoking: Never smoker Primary care physician referral: oh kolb Psychiatry clearance: Cardiology clearance: Sleep study: Diet journal: VTE risk score: VTE risk level: Rehab needs at discharge:
== END | disposition home or self-care (01) ==
LOC: BARWHC3 13:19
PROVIDERS: ATTEND Surgery
DX: E66.01 Morbid (severe) obesity due to excess calories (principal); Z68.38 Body mass index [BMI] 38.0-38.9, adult; Z98.84 Bariatric surgery status
CPT/HCPCS: 99211

== ENCOUNTER → 2021-03-21 | Outpatient (CLI) | payer MEDICARE ==
[2021-03-21 13:21] VITALS: BP 149/83; PULSE 102; RESP 18; TEMP 98.4; BMI 38.9
--- NOTE | 2021-04-05 11:04 | P.HPBAR ---
Bariatric H&P - History & Physicial H&P Date: 03/21/21 History & Physicial: Visit/CC: follow up Patient initial contact: Initial weight: 114.169 kg Initial weight in pounds: 251.70 Height: 5 ft 3.5 in Initial BMI: 43.9 Last weight: Current weight: 101.151 kg Current weight in pounds: 223.00 Current BMI: 38.9 [place] body weight (based on NIH guidelines): 53.297 kg Excess body weight loss: 21.3% The patient is a 70 year-old F who presents for Bariatric Assessment. Patient's complaints of some mild GERD. She denies dysphagia. She's had a slightly weight gain.. Past Medical History Past Medical History: Eye Disorder, Osteoarthritis (OA) Additional Past Medical History / Comment(s): kidney stones, lap band, shoulder pain; cataract bilateral History of Any Multi-Drug Resistant Organisms: None Reported Past Surgical History: Bariatric Surgery, Cholecystectomy Additional Past Surgical History / Comment(s): lap band lap band removal/sleeve gastrectomy 06-16-20; cataract bilateral surgery Past Anesthesia/Blood Transfusion Reactions: Motion Sickness, Postoperative Nausea & Vomiting (PONV) Past Psychological History: No Psychological Hx Reported Smoking Status: Never smoker Past Alcohol Use History: Rare Past Drug Use History: None Reported - Past Family History Mother Family Medical History: Dementia Father Family Medical History: Cancer Additional Family Medical History / Comment(s): skin Sister(s) Family Medical History: Cancer Additional Family Medical History / Comment(s): skin Surgical - Exam Vital Signs Temp Pulse Resp BP 98.4 F 102 H 18 149/83 03/21/21 13:14 03/21/21 13:14 03/21/21 13:14 03/21/21 13:14 - General well developed, well nourished, no distress - Eyes PERRL - ENT normal pinna - Neck no masses - Respiratory normal expansion - Cardiovascular Rhythm: regular - Abdomen Abdomen: soft, non tender Bariatric Assessment & Plan Plan: Patient's urine is minimal observed. She'll follow-up in 4 weeks. She was counseled on dieting. Bariatric Checklist Checklist: Plan: Checklist: EGD: 1. Hiatal hernia: 2. H. Pylori: HgbA1c: Vitamin D: Smoking: Never smoker Primary care physician referral: oh / bertrand Psychiatry clearance: Cardiology clearance: Sleep study: Diet journal: VTE risk score: VTE risk level: Rehab needs at discharge:
== END | disposition home or self-care (01) ==
LOC: BARWHC3 12:42
PROVIDERS: ATTEND Surgery
DX: E66.09 Other obesity due to excess calories (principal); Z68.38 Body mass index [BMI] 38.0-38.9, adult
CPT/HCPCS: 99211

== ENCOUNTER → 2021-05-09 | Outpatient (CLI) | payer MEDICARE ==
[2021-05-09 13:19] VITALS: BP 127/86; PULSE 96; TEMP 98.7; BMI 38.5
--- NOTE | 2021-05-19 20:00 | P.HPBAR ---
Bariatric H&P - History & Physicial H&P Date: 05/09/21 History & Physicial: Visit/CC: yearly follow up Patient initial contact: Initial weight: 114.169 kg Initial weight in pounds: 251.70 Height: 5 ft 3.5 in Initial BMI: 43.9 Last weight: Current weight: 100.244 kg Current weight in pounds: 221.00 Current BMI: 38.5 [place] body weight (based on NIH guidelines): 53.297 kg Excess body weight loss: 22.8% The patient is a 70 year-old F who presents for Bariatric Assessment. Patient presents today for sleeve gastrectomy fall. His tongue satisfactorily over the last several months. Her weight has remained the 220 range. She's had minimal GERD. Past Medical History Past Medical History: Eye Disorder, Osteoarthritis (OA) Additional Past Medical History / Comment(s): kidney stones, lap band, shoulder pain; cataract bilateral History of Any Multi-Drug Resistant Organisms: None Reported Past Surgical History: Bariatric Surgery, Cholecystectomy Additional Past Surgical History / Comment(s): lap band lap band removal/sleeve gastrectomy 06-16-20; cataract bilateral surgery Past Anesthesia/Blood Transfusion Reactions: Motion Sickness, Postoperative Nausea & Vomiting (PONV) Past Psychological History: No Psychological Hx Reported Smoking Status: Never smoker Past Alcohol Use History: Rare Past Drug Use History: None Reported - Past Family History Father Family Medical History: Cancer Additional Family Medical History / Comment(s): skin Sister(s) Family Medical History: Cancer Additional Family Medical History / Comment(s): skin Surgical - Exam Vital Signs Temp Pulse BP 98.7 F 96 127/86 05/09/21 13:16 05/09/21 13:16 05/09/21 13:16 - General well developed, well nourished, no distress - Eyes PERRL - ENT normal pinna - Neck no masses - Respiratory normal expansion - Cardiovascular Rhythm: regular - Abdomen Abdomen: soft, non tender Bariatric Assessment & Plan Plan: Patient has had minimal GERD. She'll be observed. She'll follow-up in 3 months. Bariatric Checklist Checklist: Plan: Checklist: EGD: 1. Hiatal hernia: 2. H. Pylori: HgbA1c: Vitamin D: Smoking: Never smoker Primary care physician referral: oh / bertrand Psychiatry clearance: Cardiology clearance: Sleep study: Diet journal: VTE risk score: VTE risk level: Rehab needs at discharge:
== END | disposition home or self-care (01) ==
LOC: BARWHC3 12:43
PROVIDERS: ATTEND Surgery
DX: E66.01 Morbid (severe) obesity due to excess calories (principal); K21.9 Gastro-esophageal reflux disease without esophagitis; Z68.38 Body mass index [BMI] 38.0-38.9, adult
CPT/HCPCS: 99211

== ENCOUNTER → 2021-07-18 | Outpatient (CLI) | payer MEDICARE ==
[2021-07-18 13:28] VITALS: BP 148/85; PULSE 56; TEMP 98; BMI 39.0
--- NOTE | 2021-07-19 17:16 | P.HPBAR ---
Bariatric H&P - History & Physicial H&P Date: 07/18/21 History & Physicial: Visit/CC: sleeve follow up Patient initial contact: Initial weight: 114.169 kg Initial weight in pounds: 251.70 Height: 5 ft 3.5 in Initial BMI: 43.9 Last weight: Current weight: 101.605 kg Current weight in pounds: 224.00 Current BMI: 39.0 [place] body weight (based on NIH guidelines): 53.297 kg Excess body weight loss: 20.6% The patient is a 70 year-old F who presents for Bariatric Assessment. Patient presents today for sleeve gastrectomy follow-up. She's had some mild GERD. She is actually gained weight since her last visit. Past Medical History Past Medical History: Eye Disorder, Osteoarthritis (OA) Additional Past Medical History / Comment(s): kidney stones, lap band, shoulder pain; cataract bilateral History of Any Multi-Drug Resistant Organisms: None Reported Past Surgical History: Bariatric Surgery, Cholecystectomy Additional Past Surgical History / Comment(s): lap band lap band removal/sleeve gastrectomy 06-16-20; cataract bilateral surgery Past Anesthesia/Blood Transfusion Reactions: Motion Sickness, Postoperative Nausea & Vomiting (PONV) Past Psychological History: No Psychological Hx Reported Smoking Status: Never smoker Past Alcohol Use History: Rare Past Drug Use History: None Reported - Past Family History Mother Family Medical History: Dementia Father Family Medical History: Cancer Additional Family Medical History / Comment(s): skin Sister(s) Family Medical History: Cancer Additional Family Medical History / Comment(s): skin Surgical - Exam Vital Signs Temp Pulse BP 98 F 56 L 148/85 07/18/21 13:25 07/18/21 13:25 07/18/21 13:25 - General well developed, well nourished, no distress - Eyes PERRL - ENT normal pinna - Neck no masses - Respiratory normal expansion - Cardiovascular Rhythm: regular - Abdomen Abdomen: soft, non tender Bariatric Assessment & Plan Plan: Patient's urine is minimal will be observed. Patient will need to focus on improved dietary habits to reduce her caloric intake Bariatric Checklist Checklist: Plan: Checklist: EGD: 1. Hiatal hernia: 2. H. Pylori: HgbA1c: Vitamin D: Smoking: Never smoker Primary care physician referral: oh / bertrand Psychiatry clearance: Cardiology clearance: Sleep study: Diet journal: VTE risk score: VTE risk level: Rehab needs at discharge:
== END | disposition home or self-care (01) ==
LOC: BARWHC3 12:54
PROVIDERS: ATTEND Surgery
DX: Z09 Encounter for follow-up examination after completed treatment for conditions other than malignant neoplasm (principal); K21.9 Gastro-esophageal reflux disease without esophagitis; M19.90 Unspecified osteoarthritis, unspecified site; Z98.84 Bariatric surgery status; Z88.0 Allergy status to penicillin
CPT/HCPCS: 99211

== ENCOUNTER → 2021-10-17 | Outpatient (CLI) | payer MEDICARE ==
[2021-10-17 13:29] VITALS: BP 136/78; PULSE 103; RESP 16; TEMP 98.3; BMI 40.4
--- NOTE | 2022-01-13 10:51 | P.HPBAR ---
Bariatric H&P - History & Physicial H&P Date: 10/17/21 History & Physicial: Visit/CC: sleeve f/u Patient initial contact: Initial weight: 114.169 kg Initial weight in pounds: 251.70 Height: 5 ft 3.5 in Initial BMI: 43.9 Last weight: Current weight: 105.188 kg Current weight in pounds: 231.90 Current BMI: 40.4 [place] body weight (based on NIH guidelines): 53.297 kg Excess body weight loss: 14.7% The patient is a 71 year-old F who presents for Bariatric Assessment. Patient resents today for [place] fall. She's had some mild GERD. She's had she gained about 6 pounds since her last visit. Past Medical History Past Medical History: Eye Disorder, Osteoarthritis (OA) Additional Past Medical History / Comment(s): kidney stones, lap band, shoulder pain; cataract bilateral History of Any Multi-Drug Resistant Organisms: None Reported Past Surgical History: Bariatric Surgery, Cholecystectomy Additional Past Surgical History / Comment(s): lap band lap band removal/sleeve gastrectomy 06-16-20; cataract bilateral surgery Past Anesthesia/Blood Transfusion Reactions: Motion Sickness, Postoperative Nausea & Vomiting (PONV) Past Psychological History: No Psychological Hx Reported Smoking Status: Never smoker Past Alcohol Use History: Rare Past Drug Use History: None Reported - Past Family History Father Family Medical History: Cancer Additional Family Medical History / Comment(s): skin Sister(s) Family Medical History: Cancer Additional Family Medical History / Comment(s): skin Surgical - Exam Vital Signs Temp Pulse Resp BP 98.3 F 103 H 16 136/78 10/17/21 13:27 10/17/21 13:27 10/17/21 13:27 10/17/21 13:27 - General well developed, well nourished, no distress - Eyes PERRL - ENT normal pinna - Neck no masses - Respiratory normal expansion - Cardiovascular Rhythm: regular - Abdomen Abdomen: soft, non tender Bariatric Assessment & Plan Plan: Morbid obesity. Patient's GERD is minimal. She will try Pepcid as needed. She'll follow-up in 4 weeks. Bariatric Checklist Checklist: Plan: Checklist: EGD: 1. Hiatal hernia: 2. H. Pylori: HgbA1c: Vitamin D: Smoking: Never smoker Primary care physician referral: oh / bertrand Psychiatry clearance: Cardiology clearance: Sleep study: Diet journal: VTE risk score: VTE risk level: Rehab needs at discharge:
== END | disposition home or self-care (01) ==
LOC: BARWHC3 13:11
PROVIDERS: ATTEND Surgery
DX: E66.01 Morbid (severe) obesity due to excess calories (principal); K21.9 Gastro-esophageal reflux disease without esophagitis
CPT/HCPCS: 99211

== ENCOUNTER → 2021-12-12 | Outpatient (CLI) | payer MEDICARE ==
[2021-12-12 13:14] VITALS: BP 133/79; PULSE 97; TEMP 98.7; BMI 40.8
--- NOTE | 2021-12-12 15:46 | P.HPBAR ---
Bariatric H&P - History & Physicial H&P Date: 12/12/21 History & Physicial: Visit/CC: sleeve f/u Patient initial contact: Initial weight: 114.169 kg Initial weight in pounds: 251.70 Height: 5 ft 3.5 in Initial BMI: 43.9 Last weight: 231 Current weight: 106.141 kg Current weight in pounds: 234.00 Current BMI: 40.8 [place] body weight (based on NIH guidelines): 53.297 kg Excess body weight loss: 13.1% The patient is a 71 year-old F who presents for Bariatric Assessment. Patient presents today for bariatric follow-up. She has complaints of minimal GERD. Her weight is actually increased. Past Medical History Past Medical History: Eye Disorder, Osteoarthritis (OA) Additional Past Medical History / Comment(s): kidney stones, lap band, shoulder pain; cataract bilateral History of Any Multi-Drug Resistant Organisms: None Reported Past Surgical History: Bariatric Surgery, Cholecystectomy Additional Past Surgical History / Comment(s): lap band lap band removal/sleeve gastrectomy 06-16-20; cataract bilateral surgery Past Anesthesia/Blood Transfusion Reactions: Motion Sickness, Postoperative Nausea & Vomiting (PONV) Past Psychological History: No Psychological Hx Reported Smoking Status: Never smoker Past Alcohol Use History: Rare Past Drug Use History: None Reported - Past Family History Mother Family Medical History: Dementia Father Family Medical History: Cancer Additional Family Medical History / Comment(s): skin Sister(s) Family Medical History: Cancer Additional Family Medical History / Comment(s): skin Surgical - Exam Vital Signs Temp Pulse BP 98.7 F 97 133/79 12/12/21 13:08 12/12/21 13:08 12/12/21 13:08 - General well developed, well nourished - Eyes PERRL - ENT normal pinna - Neck no masses - Respiratory normal expansion - Cardiovascular Rhythm: regular - Abdomen Abdomen: soft, non tender Bariatric Assessment & Plan Plan: Morbid obesity. Patient's PMI/increased. Patient was counseled on improved dietary habits. I did talk to the patient polyp about possible;ozympic used to help control her cravings. There is minimal and will be observed. Bariatric Checklist Checklist: Plan: Checklist: EGD: 1. Hiatal hernia: 2. H. Pylori: HgbA1c: Vitamin D: Smoking: Never smoker Primary care physician referral: oh thurston Psychiatry clearance: Cardiology clearance: Sleep study: Diet journal: VTE risk score: VTE risk level: Rehab needs at discharge:
== END | disposition home or self-care (01) ==
LOC: BARWHC3 12:58
PROVIDERS: ATTEND Surgery
DX: E66.01 Morbid (severe) obesity due to excess calories (principal)
CPT/HCPCS: 99211

== ENCOUNTER → 2021-12-15 | Outpatient (CLI) | payer MEDICARE ==
--- NOTE | 2021-12-15 16:47 | BD ---
EXAMINATION TYPE: Axial Bone Density DATE OF EXAM: 12/15/2021 COMPARISON: 07.18.2019 CLINICAL HISTORY: 71 years year old Female. ICD-10 CODE: M85.88 OSTEOPENIA Height: 62.6 Weight: 232 FRAX RISK QUESTIONS: Family History (Parent hip fracture): YES History of Fracture in Adulthood: YES RISK FACTORS HISTORY OF: Hip Fracture LT , AT 34 YRS OLD, AND HX OF BROKEN TOES AN ADULT Family History of Osteoporosis: YES, MOTHER WITH HIP FXS Diet low in dairy products/other sources of calcium: YES Postmenopausal woman: YES, 49 YRS OLD Lost more than 2 inches in height since high school: YES Hyperparathyroidism: NO Adrenal Insufficiency: NO MEDICATIONS: Prednisone or other steroids: ON AND OFF FOR ILLNESS, AND PAIN Additional Medications: REFLUX MEDS, CALCIUM AND VIT D, EFFEXOR, WELLBUTRIN, STATIN FOR CHOLESTEROL Additional History: REFLUX, CHOLESTEROL, ANXIETY/DEPRESSION, ARTHRITIS, SCOLIOSIS, HX OF GASTRIC SLEE VE 2018 EXAM MEASUREMENTS: Bone mineral densitometry was performed using the [employer] System. Bone mineral density as measured about the Lumbar spine is: ----- L1-L4(G/cm2): 0.888 T Score Values are as follows: ----- L1: -2.0 ----- L2: -3.0 ----- L3: -3.3 ----- L4: -1.6 ----- L1-L4: -2.4 Bone mineral density has: Decreased -19.9% since study of: 07.18.2019 Bone mineral density about the R hip (g/cm2): 0.905 T Score values are as follows: -----R Neck: -1.6 -----R Total: -0.8 Bone mineral density has: Decreased -3.7% since study of: 07.18.2019 FRAX%s: The graph provided illustrates a 9.3% chance for a major osteoporotic fx and a 3.8% chance fo r the hips probability for fx in 10 years time. IMPRESSION: Osteopenia (T Score between -2.5 and -1). There is slightly increased risk of fracture and the patient may be considered for treatment. Re-Screen 2-5 years. NOTE: T-SCORE=SD OF THE YOUNG ADULT MEAN.
--- NOTE | 2021-12-20 10:37 | MM ---
Reason for Exam: Screening (asymptomatic). Last mammogram was performed 1 year(s) and 1 month(s) ago. Patient History: Menarche at age 15. First Full-Term at age 29. Late child-bearing (after 29). Postmenopausal. Estrogen for 2 years from age 46 until age 48. Patient used Hormonal Contraceptives for 10 years. Paternal aunt had breast cancer, age 80. Risk Values: [place] 5 year model risk: 2.2%. NCI Lifetime model risk: 5.7%. Prior Study Comparison: 05/08/2018 Bilateral Screening Mammogram, [facility]. 07/18/2019 Bilateral Screening Mammogram, [facility]. 11/11/2020 Bilateral Screening Mammogram, [facility]. Tissue Density: There are scattered fibroglandular densities. Findings: Analyzed By CAD. Chronic low density nodularity outer aspect anterior right cc view. No significant change from prior exams. Overall Assessment: Benign, BI-RAD 2 Management: Screening Mammogram of both breasts in 1 year. A clinical breast exam by your physician is recommended on an annual basis and results should be correlated with mammographic findings. Also, the patient should continue monthly self breast exams. Electronically signed and approved by: Joelle Arias M.D. Radiologist
== END | disposition home or self-care (01) ==
LOC: RADMAMWWP 09:05
PROVIDERS: ATTEND Obstetrics & Gynecology
DX: Z12.31 Encounter for screening mammogram for malignant neoplasm of breast (principal); M85.88 Other specified disorders of bone density and structure, other site
CPT/HCPCS: 77063; 77067; 77080

== ENCOUNTER → 2022-01-23 | Outpatient (CLI) | payer MEDICARE ==
[2022-01-23 15:26] VITALS: BP 129/73; PULSE 62; TEMP 99; BMI 41.3
--- NOTE | 2022-01-31 16:33 | P.HPBAR ---
Bariatric H&P - History & Physicial H&P Date: 01/23/22 History & Physicial: Visit/CC: bariatric f/u Patient initial contact: Initial weight: 114.169 kg Initial weight in pounds: 251.70 Height: 5 ft 3 in Initial BMI: 44.6 Last weight: Current weight: 105.687 kg Current weight in pounds: 233.00 Current BMI: 41.3 [place] body weight (based on NIH guidelines): 52.163 kg Excess body weight loss: 13.6% The patient is a 71 year-old F who presents for Bariatric Assessment. Patient presents today for bariatric follow-up. She has some myoclonus of GERD. She is doing well. Her weight is stable. Her BMI is 41. Past Medical History Past Medical History: Eye Disorder, Osteoarthritis (OA) Additional Past Medical History / Comment(s): kidney stones, lap band, shoulder pain; cataract bilateral History of Any Multi-Drug Resistant Organisms: None Reported Past Surgical History: Bariatric Surgery, Cholecystectomy Additional Past Surgical History / Comment(s): lap band lap band removal/sleeve gastrectomy 06-16-20; cataract bilateral surgery Past Anesthesia/Blood Transfusion Reactions: Motion Sickness, Postoperative Na usea & Vomiting (PONV) Past Psychological History: No Psychological Hx Reported Smoking Status: Never smoker Past Alcohol Use History: Rare Past Drug Use History: None Reported - Past Family History Mother Family Medical History: Dementia Father Family Medical History: Cancer Additional Family Medical History / Comment(s): skin Sister(s) Family Medical History: Cancer Additional Family Medical History / Comment(s): skin Surgical - Exam Vital Signs Temp Pulse BP 99 F 62 129/73 01/23/22 15:19 01/23/22 15:19 01/23/22 15:19 - General well developed, well nourished, no distress - Eyes PERRL - ENT normal pinna - Neck no masses - Respiratory normal expansion - Cardiovascular Rhythm: regular - Abdomen Abdomen: soft, non tender Bariatric Assessment & Plan Plan: Resolving morbid obese. Patient's GERD is minimal will be observed. She'll follow-up in 4 weeks. Bariatric Checklist Checklist: Plan: Checklist: EGD: 1. Hiatal hernia: 2. H. Pylori: HgbA1c: Vitamin D: Smoking: Never smoker Primary care physician referral: oh / [facility] Psychiatry clearance: Cardiology clearance: Sleep study: Diet journal: VTE risk score: VTE risk level: Rehab needs at discharge:
== END | disposition home or self-care (01) ==
LOC: BARWHC3 14:43
PROVIDERS: ATTEND Surgery
DX: E66.01 Morbid (severe) obesity due to excess calories (principal); K21.9 Gastro-esophageal reflux disease without esophagitis
CPT/HCPCS: 99211

== ENCOUNTER → 2022-04-10 | Outpatient (CLI) | payer MEDICARE ==
[2022-04-10 13:09] VITALS: BP 118/76; PULSE 109; TEMP 98.5; BMI 41.5
--- NOTE | 2022-04-10 15:09 | P.HPBAR ---
Bariatric H&P - History & Physicial H&P Date: 04/10/22 History & Physicial: Visit/CC: sleeve f/u Patient initial contact: Initial weight: 114.169 kg Initial weight in pounds: 251.70 Height: 5 ft 3.5 in Initial BMI: 43.9 Last weight: Current weight: 107.955 kg Current weight in pounds: 238.00 Current BMI: 41.5 [place] body weight (based on NIH guidelines): 53.297 kg Excess body weight loss: 10.2% The patient is a 71 year-old F who presents for Bariatric Assessment. Patient presents today for sleeve gastrectomy fall. Patient's continued weight gain. Patient states that she is had some social stresses and ascending very poor food choices. Past Medical History Past Medical History: Eye Disorder, Osteoarthritis (OA) Additional Past Medical History / Comment(s): kidney stones, lap band, shoulder pain; cataract bilateral History of Any Multi-Drug Resistant Organisms: None Reported Past Surgical History: Bariatric Surgery, Cholecystectomy Additional Past Surgical History / Comment(s): lap band lap band removal/sleeve gastrectomy 06-16-20; cataract bilateral surgery Past Anesthesia/Blood Transfusion Reactions: Motion Sickness, Postoperative Nausea & Vomiting (PONV) Past Psychological History: No Psychological Hx Reported Smoking Status: Never smoker Past Alcohol Use History: Rare Past Drug Use History: None Reported - Past Family History Mother Family Medical History: Dementia Father Family Medical History: Cancer Additional Family Medical History / Comment(s): skin Sister(s) Family Medical History: Cancer Additional Family Medical History / Comment(s): skin Surgical - Exam Vital Signs Temp Pulse BP 98.5 F 109 H 118/76 04/10/22 13:02 04/10/22 13:02 04/10/22 13:02 - General well developed, well nourished, no distress - Eyes PERRL - ENT normal pinna - Neck no masses - Respiratory normal expansion - Cardiovascular Rhythm: regular - Abdomen Abdomen: soft, non tender Bariatric Assessment & Plan Plan: Patient has minimal GERD which we observed. Her food choices will be discussed with the dietitian. Patient follow-up in 4 weeks. Bariatric Checklist Checklist: Plan: Checklist: EGD: 1. Hiatal hernia: 2. H. Pylori: HgbA1c: Vitamin D: Smoking: Never smoker Primary care physician referral: oh / bertrand Psychiatry clearance: Cardiology clearance: Sleep study: Diet journal: VTE risk score: VTE risk level: Rehab needs at discharge:
== END | disposition home or self-care (01) ==
LOC: BARWHC3 12:34
PROVIDERS: ATTEND Surgery
DX: E66.01 Morbid (severe) obesity due to excess calories (principal); K44.9 Diaphragmatic hernia without obstruction or gangrene; Z68.41 Body mass index [BMI] 40.0-44.9, adult
CPT/HCPCS: 99211

== ENCOUNTER → 2022-11-20 | Outpatient (CLI) | payer MEDICARE ==
[2022-11-20 14:12] VITALS: BP 120/77; PULSE 84; TEMP 97.8; BMI 40.2
--- NOTE | 2022-12-12 11:46 | P.HPBAR ---
Bariatric H&P - History & Physicial H&P Date: 11/20/22 History & Physicial: Visit/CC: bariatric F/U Patient initial contact: Initial weight: 114.169 kg Initial weight in pounds: 251.70 Height: 5 ft 3.5 in Initial BMI: 43.9 Last weight: Current weight: 104.78 kg Current weight in pounds: 231.00 Current BMI: 40.2 [place] body weight (based on NIH guidelines): 53.297 kg Excess body weight loss: 15.4% The patient is a 72 year-old F who presents for Bariatric Assessment. Patient presents today for better follow-up. She's had complaints of GERD. She has appears history of sleeve gastrectomy. Past Medical History Past Medical History: Eye Disorder, Osteoarthritis (OA) Additional Past Medical History / Comment(s): kidney stones, lap band, shoulder pain; cataract bilateral History of Any Multi-Drug Resistant Organisms: None Reported Past Surgical History: Bariatric Surgery, Cholecystectomy Additional Past Surgical History / Comment(s): lap band lap band removal/sleeve gastrectomy 06-16-20; cataract bilateral surgery Past Anesthesia/Blood Transfusion Reactions: Motion Sickness, Postoperative Nausea & Vomiting (PONV) Past Psychological History: No Psychological Hx Reported Smoking Status: Never smoker Past Alcohol Use History: Rare Past Drug Use History: None Reported - Past Family History Mother Family Medical History: Dementia Father Family Medical History: Cancer Additional Family Medical History / Comment(s): skin Sister(s) Family Medical History: Cancer Additional Family Medical History / Comment(s): skin Surgical - Exam Vital Signs Temp Pulse BP 97.8 F 84 120/77 11/20/22 14:06 11/20/22 14:06 11/20/22 14:06 - General well developed, well nourished - Eyes PERRL - ENT normal pinna - Neck no masses - Respiratory normal expansion - Cardiovascular Rhythm: regular - Abdomen Abdomen: soft, non tender Bariatric Assessment & Plan Plan: GERD. Patient was scheduled for EGD. Continue her antireflux medications. Bariatric Checklist Checklist: Plan: Checklist: EGD: 1. Hiatal hernia: 2. H. Pylori: HgbA1c: Vitamin D: Smoking: Never smoker Primary care physician referral: oh / bertrand Psychiatry clearance: Cardiology clearance: Sleep study: Diet journal: VTE risk score: VTE risk level: Rehab needs at discharge:
== END ==
LOC: BARWHC3 13:11
PROVIDERS: ATTEND Surgery
DX: E66.01 Morbid (severe) obesity due to excess calories (principal); Z68.41 Body mass index [BMI] 40.0-44.9, adult; K21.9 Gastro-esophageal reflux disease without esophagitis; Z98.84 Bariatric surgery status; M19.90 Unspecified osteoarthritis, unspecified site; Z88.0 Allergy status to penicillin
CPT/HCPCS: 99211

== ENCOUNTER 2022-11-25 09:38 | Emergency (ER) | payer MEDICARE ==
[2022-11-25 09:51] VITALS: RESP 18; TEMP 98.1
[2022-11-25] MEDS ORDERED: KETOROLAC 15 MG/ML 1 ML VIAL IVP STA (10:13)
[2022-11-25] MEDS ORDERED: ONDANSETRON 4 MG/2 ML VIAL IVP STA (10:13)
[2022-11-25] MEDS ORDERED: methylPREDNISolone SOD SUCCI 125 MG/2 ML VIAL IV STA (10:13)
[2022-11-25] MEDS ORDERED: MORPHINE SULFATE 4 MG/ML SYRINGE IVP STA (10:13)
--- NOTE | 2022-11-25 10:38 | ED ---
Back Pain HPI - General Chief Complaint: Back Pain/Injury Stated Complaint: Back pain Time Seen by Provider: 11/25/22 10:05 Source: patient, family, RN notes reviewed Limitations: physical limitation - History of Present Illness Initial Comments: 72-year-old female presents emergency Department with chief complaint of back pain. Patient states she does suffer with ongoing back problems but states that it usually gets better and she gets movement today. She states that she had pain went to go to the bathroom states that also pupils her to stand up. States it's in her right lower back denies any radicular symptoms her legs denies any bowel, bladder incontinence retentionthat last seizures. Patient is not taking her discomfort. She states it is better at rest worse with any movement. - Related Data Home Medications Medication Instructions Recorded Confirmed cycloSPORINE [Restasis] 1 applicator BOTH EYES BID 01/31/16 11/20/22 Cetirizine HCl [Zyrtec] 10 mg PO DAILY 04/21/19 11/20/22 Venlafaxine HCl [Effexor XR] 150 mg PO QAM 05/12/19 11/20/22 Clindamycin Gel [Clindamycin 1 applic TOPICAL BID 11/24/19 11/20/22 Phosphate 1% Gel] Hydrocortisone Cream 1 applic TOPICAL BID 11/24/19 11/20/22 [Hydrocortisone 2.5% Cream] Atorvastatin [Lipitor] 40 mg PO DAILY 03/21/21 11/20/22 Previous Rx's Medication Instructions Recorded Omeprazole 40 mg PO DAILY #30 cap 06/19/19 Cyclobenzaprine [Flexeril] 5 mg PO TID PRN #15 tablet 11/25/22 predniSONE 50 mg PO DAILY #5 tab 11/25/22 Allergies Allergy/AdvReac Type Severity Reaction Status Date / Time Penicillins Allergy Rash/Hives Verified 02/28/22 07:46 Review of Systems ROS Statement: Those systems with pertinent positive or pertinent negative responses have been documented in the HPI. ROS Other: All systems not noted in ROS Statement are negative. Past Medical History Past Medical History: Eye Disorder, Osteoarthritis (OA) Additional Past Medical History / Comment(s): kidney stones, lap band, shoulder pain; cataract bilateral History of Any Multi-Drug Resistant Organisms: None Reported Past Surgical History: Bariatric Surgery, Cholecystectomy Additional Past Surgical History / Comment(s): lap band lap band removal/sleeve gastrectomy 12-9-20; cataract bilateral surgery Past Anesthesia/Blood Transfusion Reactions: Motion Sickness, Postoperative Nausea & Vomiting (PONV) Past Psychological History: Depression Smoking Status: Never smoker Past Alcohol Use History: Occasional, Rare Past Drug Use History: None Reported - Past Family History Father Family Medical History: Cancer Additional Family Medical History / Comment(s): skin Sister(s) Family Medical History: Cancer Additional Family Medical History / Comment(s): skin General Exam Limitations: no limitations, physical limitation General appearance: alert, in no apparent distress Head exam: Present: atraumatic, normocephalic, normal inspection Eye exam: Present: normal appearance, PERRL, EOMI. Absent: scleral icterus, conjunctival injection, periorbital swelling ENT exam: Present: normal exam, mucous membranes moist Neck exam: Present: normal inspection, full ROM. Absent: tenderness, meningismus, lymphadenopathy Respiratory exam: Present: normal lung sounds bilaterally. Absent: respiratory distress, wheezes, rales, rhonchi, stridor Cardiovascular Exam: Present: regular rate, normal rhythm, normal heart sounds. Absent: systolic murmur, diastolic murmur, rubs, gallop, clicks GI/Abdominal exam: Present: soft, normal bowel sounds. Absent: distended, tenderness, guarding, rebound, rigid Back exam: Present: tenderness, muscle spasm, paraspinal tenderness. Absent: full ROM, vertebral tenderness Neurological exam: Present: alert, reflexes normal. Absent: motor sensory deficit Skin exam: Present: warm, dry, intact, normal color. Absent: rash Course Vital Signs 11/25/22 09:48 Temperature 98.1 F Pulse Rate 116 H Respiratory 18 Rate Blood Pressure 130/76 O2 Sat by Pulse 96 Oximetry Medical Decision Making - Medical Decision Making Was pt. sent in by a medical professional or institution (, PA, CLINICAL ABSTRACTOR, urgent care, hospital, or prison...) When possible be specific @ -No Did you speak to anyone other than the patient for history (EMS, parent, family, police, friend...)? What history was obtained from this source @ -No Did you review nursing and triage notes (agree or disagree)? Why? @ -I reviewed and agree with nursing and triage notes Were old charts reviewed (outside hosp., previous admission, EMS record, old EKG, old radiological studies, urgent care reports/EKG's, prison records)? Report findings @ -No old charts were reviewed Differential Diagnosis (chest pain, altered mental status, abdominal pain women, abdominal pain men, vaginal bleeding, weakness, fever, dyspnea, syncope, headache, dizziness, GI bleed, back pain, seizure, CVA, palpatations, mental health, musculoskeletal)? @ -nDifferential Back Pain: Strain, zoster, cauda equina syndrome, epidural abscess, vertebral osteomyelitis , discitis, fracture, subluxation, disc herniation, DJD, spinal stenosis, dissection, AAA, pancreatitis, peptic ulcer disease, pyelonephritis, kidney stone, this is not meant to be an all-inclusive list.ble EKG interpreted by me (3pts min.). @ -None X-rays interpreted by me (1pt min.). @ -X-ray lumbar 4 views shows degenerative changes greatest pain L2-L3 mild scoliosis noted CT interpreted by me (1pt min.). @ -None done U/S interpreted by me (1pt. min.). @ -None done What testing was considered but not performed or refused? (CT, X-rays, U/S, labs)? Why? @ -None What meds were considered but not given or refused? Why? @ -None Did you discuss the management of the patient with other professionals (professionals i.e. , PA, CLINICAL ABSTRACTOR, lab, RT, psych nurse, community mental health social worker, pocket operator, teacher, special skills officer, nurse case management)? Give summary @ -No Was smoking cessation discussed for >3mins.? @ -No Was critical care preformed (if so, how long)? @ -No Were there social determinants of health that impacted care today? How? (Homelessness, low income, unemployed, alcoholism, drug addiction, transportation, low edu. Level, literacy, decrease access to med. care, intermediate, rehab)? @ -No Was there de-escalation of care discussed even if they declined (Discuss DNR or withdrawal of care, Hospice)? DNR status @ -No What co-morbidities impacted this encounter? (DM, HTN, Smoking, COPD, CAD, Cancer, CVA, ARF, Chemo, Hep., AIDS, mental health diagnosis, sleep apnea, morbid obesity)? @ -None Was patient admitted / discharged? Hospital course, mention meds given and route, prescriptions, significant lab abnormalities, going to OR and other pertinent info. @ -Discharge patient has acute lumbar strain with no red flag symptoms. She is not intact x-rays were ordered and interpreted showing degenerative changes she feels improved after pain control we discharged with steroids, pain management return parameters discussed Undiagnosed new problem with uncertain prognosis? @ -No Drug Therapy requiring intensive monitoring for toxicity (Heparin, Nitro, Insulin, Cardizem)? @ -No Were any procedures done? @ -No Diagnosis/symptom? @ -Acute lumbar pain Acute, or Chronic, or Acute on Chronic? @ -Acute Uncomplicated (without systemic symptoms) or Complicated (systemic symptoms)? @ -Uncomplicated. Side effects of treatment? @ -No Exacerbation, Progression, or Severe Exacerbation? @ -No Poses a threat to life or bodily function? How? (Chest pain, [place], CA, pneumonia, PE, COPD, DKA, ARF, appy, cholecystitis, CVA, Diverticulitis, Homicidal, Suicidal, threat to staff... and all critical care pts) @ -No Disposition Clinical Impression: Strain of lumbar region Disposition: HOME SELF-CARE Condition: Stable Instructions (If sedation given, give patient instructions): Acute Low Back Pain (ED) Additional Instructions: Please return to the Emergency Department if symptoms worsen or any other concerns. Prescriptions: Cyclobenzaprine [Flexeril] 5 mg PO TID PRN #15 tablet PRN Reason: Muscle Spasm predniSONE 50 mg PO DAILY #5 tab Is patient prescribed a controlled substance at d/c from ED?: No Referrals: Venkat Kolb MD [Primary Care Provider] - 1-2 days Time of Disposition: 11:32
--- NOTE | 2022-11-25 10:55 | XR ---
EXAMINATION TYPE: XR lumbosacral spine min 4V DATE OF EXAM: 11/25/2022 CLINICAL HISTORY: Low back pain TECHNIQUE: Frontal, lateral, and oblique images of the lumbar spine are obtained. COMPARISON: FINDINGS: There are 5 lumbar type vertebral bodies identified. There is levoconvex scoliosis centere d at L2-L3 level. Osseous structures are demineralized which is noted to lower radiographic sensitivi ty. There is slight grade 1 retrolisthesis L2 on L3. There is vacuum disc phenomenon with moderate di sc space narrowing and endplate sclerosis at L2-L3 level. There is mild to moderate disc space narrow ing at L3-L4 level. Incidental disc space narrowing with endplate sclerosis in the lower thoracic spi ne. Oblique images appear within normal limits. Facet arthropathy in the lower lumbar spine is presen t. There are overlying cholecystectomy clips along with surgical clips and sutures in the left mid a bdomen noted. IMPRESSION: As above.
[2022-11-25] MEDS ORDERED: METOCLOPRAMIDE 5 MG/ML 2 ML VIAL IVP STA (11:24)
[2022-11-25] MEDS ORDERED: ACET/COD 300 MG/30 MG STARTER PACK 6 TAB BTL PO STA (11:24)
[2022-11-25 11:58] VITALS: BP 132/84; PULSE 98
== END 2022-11-25 11:58 | disposition home or self-care (01) ==
LOC: EC 09:38
DX: S39.012A Strain of muscle, fascia and tendon of lower back, initial encounter (principal); F32.A Depression, unspecified; Z88.0 Allergy status to penicillin; X58.XXXA Exposure to other specified factors, initial encounter
CPT/HCPCS: 72110; 99284; 96374; 96375 ×3; J2270; J2930; J2405; J1885

== ENCOUNTER 2022-12-11 12:28 | Day surgery (SDC) | payer MEDICARE ==
[2022-12-07 15:10] VITALS: BMI 39.3
[2022-12-11 13:00] VITALS: TEMP 97.8
[2022-12-11] MEDS ORDERED: LACTATED RINGERS 1,000 ML IV ONE (13:00)
[2022-12-11] MEDS ORDERED: ONDANSETRON 4 MG/2 ML VIAL IVP ONE (13:08)
[2022-12-11] MEDS ORDERED: ONDANSETRON 4 MG/2 ML VIAL ONE (13:10)
[2022-12-11] MEDS ORDERED: PROPOFOL 10 MG/ML 20 ML VIAL IV ONE (13:44)
--- NOTE | 2022-12-11 13:44 | P.GSHP ---
History of Present Illness H&P Date: 12/11/22 Chief Complaint: GERD This is a 72-year-old female who presents today for EGD. She's had issues with GERD. Patient's previous history of gastric sleeve surgery. Past Medical History Past Medical History: Eye Disorder, GERD/Reflux, Osteoarthritis (OA) Additional Past Medical History / Comment(s): kidney stones, lap band, sleeve, shoulder pain; cataract bilateral dry eye History of Any Multi-Drug Resistant Organisms: None Reported Past Surgical History: Bariatric Surgery, Cholecystectomy Additional Past Surgical History / Comment(s): lap band lap band removal/sleeve gastrectomy 06-16-20; cataract bilateral surgery wisdom teeth out (3) Past Anesthesia/Blood Transfusion Reactions: Motion Sickness, Postoperative Nausea & Vomiting (PONV) Additional Past Anesthesia/Blood Transfusion Reaction / Comment(s): no blood transfusion Smoking Status: Never smoker - Past Family History Mother Family Medical History: Dementia Father Family Medical History: Cancer Additional Family Medical History / Comment(s): skin Sister(s) Family Medical History: Cancer Additional Family Medical History / Comment(s): skin Medications and Allergies Home Medications Medication Instructions Recorded Confirmed Type cycloSPORINE [Restasis] 1 applicator BOTH EYES BID 01/31/16 12/11/22 History Cetirizine HCl [Zyrtec] 10 mg PO DAILY 04/21/19 12/11/22 History Venlafaxine HCl [Effexor XR] 150 mg PO QAM 05/12/19 12/11/22 History Omeprazole 40 mg PO DAILY #30 cap 06/19/19 12/11/22 Rx Clindamycin Gel [Clindamycin 1 applic TOPICAL BID 11/24/19 12/11/22 History Phosphate 1% Gel] Hydrocortisone Cream 1 applic TOPICAL BID 11/24/19 12/11/22 History [Hydrocortisone 2.5% Cream] Atorvastatin [Lipitor] 40 mg PO DAILY 03/21/21 12/11/22 History Cyclobenzaprine HCl 1 tab PO Q8HR PRN 12/07/22 12/11/22 History Allergies Allergy/AdvReac Type Severity Reaction Status Date / Time Penicillins Allergy Rash/Hives Verified 12/11/22 13:07 Surgical - Exam Vital Signs Temp Pulse Resp BP Pulse Ox 97.8 F 77 20 150/70 96 12/11/22 12:58 12/11/22 12:58 12/11/22 12:58 12/11/22 12:58 12/11/22 12:58 - General well developed, well nourished, no distress - Eyes PERRL - ENT normal pinna - Neck no masses - Respiratory normal expansion - Cardiovascular Rhythm: regular - Abdomen Abdomen: soft, non tender Assessment and Plan Assessment: GERD. We'll perform EGD.
[2022-12-11] MEDS ORDERED: LACTATED RINGERS 1,000 ML IV SCH (13:45)
[2022-12-11] MEDS ORDERED: LIDOCAINE 1% (10MG/ML) FOR IV START INTRADERMA PRN (13:45)
--- NOTE | 2022-12-11 13:52 | P.OP ---
Date of Procedure: 12/11/22 Preoperative Diagnosis: GERD Postoperative Diagnosis: Antral gastritis Mild esophagitis Possible small hiatal hernia Procedure(s) Performed: EGD Anesthesia: MAC Surgeon: Michael Hickman Pathology: other (Antrum, esophagus) Condition: stable Disposition: PACU Description of Procedure: The patient's placed on the endoscopy table in the lateral position. She received IV sedation. The gastro-/oropharynx passed in the esophagus. The scope was then laced the stomach and then through the pylorus and the duodenum. This the first and second portion duodenum appeared normal. Scope was then brought back and the antrum this is minimally inflamed. Biopsies performed. Scope was withdrawn. Patient had a gastric sleeve. There is no structural sleeve. The GE junction appeared to be at 40 cm. There was a possible small sliding hiatal hernia. The distal esophagus appeared mildly inflamed. A biopsies performed. The proximal esophagus appeared normal. The scope withdrawn for patient.
[2022-12-11 13:58] VITALS: RESP 16
[2022-12-11 14:22] VITALS: BP 127/78; PULSE 79
== END 2022-12-11 14:51 | disposition home or self-care (01) ==
LOC: ORWHC2ENDO 12:28
PROVIDERS: ATTEND Surgery
DX: K29.50 Unspecified chronic gastritis without bleeding (principal); K21.00 Gastro-esophageal reflux disease with esophagitis, without bleeding; M19.90 Unspecified osteoarthritis, unspecified site; N20.0 Calculus of kidney; K91.0 Vomiting following gastrointestinal surgery; Z98.41 Cataract extraction status, right eye; Z98.42 Cataract extraction status, left eye; Z98.84 Bariatric surgery status; Z90.49 Acquired absence of other specified parts of digestive tract; Z98.890 Other specified postprocedural states; Z79.899 Other long term (current) drug therapy; Z88.0 Allergy status to penicillin
CPT/HCPCS: 43239; J2405; J2704; 88305

== ENCOUNTER → 2022-12-18 | Outpatient (CLI) | payer MEDICARE ==
--- NOTE | 2022-12-19 11:14 | MM ---
Reason for Exam: Screening (asymptomatic). Last screening mammogram was performed 12 month(s) ago. Patient History: Menarche at age 15. First Full-Term at age 29. Late child-bearing (after 29). Postmenopausal. Estrogen for 2 years from age 46 until age 48. Patient used Hormonal Contraceptives for 10 years. Paternal aunt had breast cancer, age 80. Risk Values: Sarah 5 year model risk: 2.2%. NCI Lifetime model risk: 5.4%. Prior Study Comparison: 07/18/2019 Bilateral Screening Mammogram, [facility]. 11/11/2020 Bilateral Screening Mammogram, [facility]. 12/15/2021 Bilateral MG 3D screening mammo w/cad, [facility]. Tissue Density: There are scattered fibroglandular densities. Findings: Analyzed By CAD. There is no suspicious group of microcalcifications or new suspicious mass in either breast. Stable chronic nodularity within the right breast. Overall Assessment: Benign, BI-RAD 2 Management: Screening Mammogram of both breasts in 1 year. A clinical breast exam by your physician is recommended on an annual basis and results should be correlated with mammographic findings. Note on Sarah scores and lifetime risk: 1. A Sarah score greater than 3% is considered moderate risk. If this is the case, consider specialist referral to assess eligibility for a risk reducing agent. If overall lifetime risk for the development of breast cancer is 20% or higher, the patient may qualify for future screening with alternating mammogram and breast MRI. Electronically signed and approved by: Devin Borrego D.O.
== END | disposition home or self-care (01) ==
LOC: RADMAMWWP 07:19
PROVIDERS: ATTEND Internal Medicine
DX: Z12.31 Encounter for screening mammogram for malignant neoplasm of breast (principal); Z78.0 Asymptomatic menopausal state; Z80.3 Family history of malignant neoplasm of breast
CPT/HCPCS: 77063; 77067

== ENCOUNTER → 2022-12-18 | Outpatient (CLI) | payer MEDICARE ==
[2022-12-18 14:09] VITALS: BP 116/72; PULSE 96; TEMP 98.8; BMI 40.1
--- NOTE | 2023-01-15 08:49 | P.HPBAR ---
Bariatric H&P - History & Physicial H&P Date: 12/18/22 History & Physicial: Visit/CC: EGD F/U Patient initial contact: Initial weight: 114.169 kg Initial weight in pounds: 251.70 Height: 5 ft 3.5 in Initial BMI: 43.9 Last weight: Current weight: 104.326 kg Current weight in pounds: 230.00 Current BMI: 40.1 [place] body weight (based on NIH guidelines): 53.297 kg Excess body weight loss: 16.1% The patient is a 72 year-old F who presents for Bariatric Assessment. Patient resents today for bariatric follow-up. She has some complaints of GERD. Her GERD has been stable. Past Medical History Past Medical History: Eye Disorder, Osteoarthritis (OA) Additional Past Medical History / Comment(s): kidney stones, lap band, shoulder pain; cataract bilateral History of Any Multi-Drug Resistant Organisms: None Reported Past Surgical History: Bariatric Surgery, Cholecystectomy Additional Past Surgical History / Comment(s): lap band lap band removal/sleeve gastrectomy 06-16-20; cataract bilateral surgery Past Anesthesia/Blood Transfusion Reactions: Motion Sickness, Postoperative Nausea & Vomiting (PONV) Past Psychological History: No Psychological Hx Reported Smoking Status: Never smoker Past Alcohol Use History: Rare Past Drug Use History: None Reported - Past Family History Mother Family Medical History: Dementia Father Family Medical History: Cancer Additional Family Medical History / Comment(s): skin Sister(s) Family Medical History: Cancer Additional Family Medical History / Comment(s): skin Surgical - Exam Vital Signs Temp Pulse BP 98.8 F 96 116/72 12/18/22 14:05 12/18/22 14:05 12/18/22 14:05 - General well developed, well nourished, no distress - Eyes PERRL - ENT normal pinna - Abdomen Abdomen: soft, non tender Bariatric Assessment & Plan Plan: The patient's weight is stable. Her GERD is chronic and minimal. She'll continue medical therapy. She will follow-up in 12 weeks. Bariatric Checklist Checklist: Plan: Checklist: EGD: 1. Hiatal hernia: 2. H. Pylori: HgbA1c: Vitamin D: Smoking: Never smoker Primary care physician referral: [facility] / [facility] Psychiatry clearance: Cardiology clearance: Sleep study: Diet journal: VTE risk score: VTE risk level: Rehab needs at discharge:
== END ==
LOC: BARWHC3 13:40
PROVIDERS: ATTEND Surgery
DX: Z48.815 Encounter for surgical aftercare following surgery on the digestive system (principal); E66.01 Morbid (severe) obesity due to excess calories; H57.9 Unspecified disorder of eye and adnexa; M19.90 Unspecified osteoarthritis, unspecified site; K21.9 Gastro-esophageal reflux disease without esophagitis; Z68.41 Body mass index [BMI] 40.0-44.9, adult; Z98.84 Bariatric surgery status; Z88.0 Allergy status to penicillin
CPT/HCPCS: 99211

== ENCOUNTER → 2022-12-18 | Outpatient (CLI) | payer MEDICARE ==
--- NOTE | 2022-12-18 08:04 | US ---
EXAMINATION TYPE: US abdomen complete DATE OF EXAM: 12/18/2022 COMPARISON: NONE CLINICAL INDICATION: Female, 72 years old with history of K21.9 GASTRO-ESOPHAGEAL REFLUX DISEASE WITH OUT ESO; Acid reflux, gastric sleeve surgery 3-4 years ago, cholecystectomy TECHNIQUE: Multiple sonographic images of the abdomen are obtained. FINDINGS: EXAM MEASUREMENTS: Liver Length: 12.8 cm Gallbladder Wall: Surgically absent CBD: 0.8 cm Spleen: 8.9 cm Right Kidney: 9.6 x 3.5 x 3.9 cm Left Kidney: 11.0 x 5.1 x 4.1 cm LIME BOILER NOTES: *Technical limitations due to patient's body habitus and large amount of overlying bowel content Pancreas: Tail obscured by overlying bowel gas Liver: appears wnl as visualized Gallbladder: Surgically absent Evidence for sonographic Nino's sign: no CBD: wnl Spleen: wnl Right Kidney: appears wnl Left Kidney: mild hydronephrosis Upper IVC: wnl Abd Aorta: wnl The liver is homogenous. The intrahepatic portion of the IVC and proximal abdominal aorta are within normal limits. Common bile duct is unremarkable. The visualized portions of the pancreas are homog enous. The spleen is unremarkable. No renal lesions are seen. IMPRESSION: 1. Mild left-sided hydronephrosis.
== END | disposition home or self-care (01) ==
LOC: RADUSWWP 07:17
PROVIDERS: ATTEND Internal Medicine
DX: N13.30 Unspecified hydronephrosis (principal); K21.9 Gastro-esophageal reflux disease without esophagitis; Z90.49 Acquired absence of other specified parts of digestive tract
CPT/HCPCS: 76700

== ENCOUNTER → 2023-01-12 | Outpatient (CLI) | payer MEDICARE ==
[2023-01-12 07:29] LABS: African American GFR (CKD) 72 (>60 ml/min/1.73 sqM); Blood Urea Nitrogen 23 mg/dL (7-17); Non-African American GFR(CKD) 63 (>60 ml/min/1.73 sqM)
--- NOTE | 2023-01-12 14:13 | CT ---
EXAMINATION TYPE: CT abdomen pelvis wo/w con DATE OF EXAM: 01/12/2023 COMPARISON: None INDICATION: hydronephrosis left side DLP: 2580.9 mGycm, Automated exposure control for dose reduction was used. CONTRAST: 100 mL of Isovue 300. Study performed with Oral Contrast TECHNIQUE: Axial images were obtained from above the diaphragm to the pubic rami in the axial plane a t 5 mm thick sections. Reconstructed images are reviewed on the computer in the coronal plane. FINDINGS: Limited CT sections are obtained the lung bases. The lung bases are clear. There is a hiatal hernia present. There appears to be gastric sleeve surgery. CT ABDOMEN: There is an anterior abdominal wall hernia at the periumbilical region with an opening of 1.1 cm. This contains mesenteric fat. No loops of bowel are involved. Liver: Normal Spleen: Normal Pancreas: Normal Adrenal glands: The adrenal glands are normal. Gallbladder: Surgically absent Kidneys: No masses are evident. No hydronephrosis is present. Peripelvic cysts are present. No dila ana paula renal collecting system is evident. No hydroureter is evident. Delayed images were obtained thro ugh the kidneys, which remain unremarkable. Aorta: Vascular calcification is within the aorta. Inferior vena cava: Normal. CT PELVIS: Loops of bowel within the abdomen and pelvis are normal. There are loops of bowel which are incom pletely distended or lack oral contrast limiting their evaluation. Appendix: Not identified. No dilated tubular structure or inflammatory changes evident. Urinary bladder: Normal. Genitourinary structures: Uterus is normal. Adnexa are unremarkable. Osseous structures: No suspicious lytic or sclerotic lesions. Scoliosis is present. IMPRESSIONS: 1. No suspicious acute changes. 2. Left peripelvic cysts can account for ultrasound findings. No hydronephrosis is evident. 3. Fat-containing periumbilical hernia.
== END | disposition home or self-care (01) ==
LOC: RADCTMAIN 06:52
PROVIDERS: ATTEND Internal Medicine
DX: N13.30 Unspecified hydronephrosis (principal); K42.9 Umbilical hernia without obstruction or gangrene; N28.1 Cyst of kidney, acquired
CPT/HCPCS: 82565; 84520; 74178; 36415; Q9967

== ENCOUNTER → 2023-02-26 | Outpatient (CLI) | payer MEDICARE ==
[2023-02-26 12:50] VITALS: BP 110/71; PULSE 108; TEMP 97.5; BMI 39.9
--- NOTE | 2023-02-27 14:51 | P.HPBAR ---
Bariatric H&P - History & Physicial H&P Date: 02/26/23 History & Physicial: Visit/CC: sleeve F/U Patient initial contact: Initial weight: 114.169 kg Initial weight in pounds: 251.70 Height: 5 ft 3.5 in Initial BMI: 43.9 Last weight: Current weight: 103.873 kg Current weight in pounds: 229.00 Current BMI: 39.9 [place] body weight (based on NIH guidelines): 53.297 kg Excess body weight loss: 16.9% The patient is a 72 year-old F who presents for Bariatric Assessment. patient presents today for sleeve gastrectomy follow-up. She has had no significant change in her weight. She has had minimal GERD. She states she has been stress eating. Past Medical History Past Medical History: Eye Disorder, Osteoarthritis (OA) Additional Past Medical History / Comment(s): kidney stones, lap band, shoulder pain; cataract bilateral History of Any Multi-Drug Resistant Organisms: None Reported Past Surgical History: Bariatric Surgery, Cholecystectomy Additional Past Surgical History / Comment(s): lap band lap band removal/sleeve gastrectomy 06-16-20; cataract bilateral surgery Past Anesthesia/Blood Transfusion Reactions: Motion Sickness, Postoperative Nausea & Vomiting (PONV) Past Psychological History: No Psychological Hx Reported Smoking Status: Never smoker Past Alcohol Use History: Rare Past Drug Use History: None Reported - Past Family History Mother Family Medical History: Dementia Father Family Medical History: Cancer Additional Family Medical History / Comment(s): skin Sister(s) Family Medical History: Cancer Additional Family Medical History / Comment(s): skin Surgical - Exam Vital Signs Temp Pulse BP 97.5 F L 108 H 110/71 02/26/23 12:47 02/26/23 12:47 02/26/23 12:47 - General well developed, well nourished, no distress - Eyes PERRL - ENT normal pinna - Neck no masses - Respiratory normal expansion - Cardiovascular Rhythm: regular - Abdomen Abdomen: soft, non tender Bariatric Assessment & Plan Plan: Status post sleeve yesterday. Patient's GERD is minimal will be observed. She will follow-up in 4 weeks. She will try to improve her dietary habits. Bariatric Checklist Checklist: Plan: Checklist: EGD: 1. Hiatal hernia: 2. H. Pylori: HgbA1c: Vitamin D: Smoking: Never smoker Primary care physician referral: [facility] Psychiatry clearance: Cardiology clearance: Sleep study: Diet journal: VTE risk score: VTE risk level: Rehab needs at discharge:
== END ==
LOC: BARWHC3 12:32
PROVIDERS: ATTEND Surgery
DX: E66.01 Morbid (severe) obesity due to excess calories (principal); Z98.84 Bariatric surgery status; K21.9 Gastro-esophageal reflux disease without esophagitis; Z71.3 Dietary counseling and surveillance; M19.90 Unspecified osteoarthritis, unspecified site; N20.0 Calculus of kidney; Z68.39 Body mass index [BMI] 39.0-39.9, adult; Z88.0 Allergy status to penicillin
CPT/HCPCS: 99211

== ENCOUNTER → 2023-04-19 | Outpatient (CLI) | payer MEDICARE ==
[~2023-04-19] MED LIST changes: -DEXAMETHASONE SOD PHOSPHATE 10 MG/ML 1 ML VIAL IV ONE; -ENOXAPARIN 40 MG/0.4 ML SYRINGE SQ ONE; -HYDROmorphone 0.5 MG/0.5 ML SYRINGE IVP PRN; -LIDOCAINE 1% 20 ML VIAL (10MG/ML) FOR IV START INTRADERMA PRN; -MIDAZOLAM 2 MG/2 ML VIAL IV PRN; -SCOPOLAMINE 1.5MG/72HR PATCH TRANSDERM ONE; +SODIUM CHLORIDE 0.9% 500 ML 500 ML in EMPTY BAG 1 BAG IV PRN; +ZOLEDRONIC ACID 5 MG in SODIUM CHLORIDE 0.9% 100 ML IV NR
[2023-04-19 12:52] VITALS: BP 103/70; PULSE 106; RESP 16; TEMP 98.1
== END ==
LOC: PROCWHC3 12:14
PROVIDERS: ATTEND Internal Medicine
DX: M85.80 Other specified disorders of bone density and structure, unspecified site (principal); Z88.0 Allergy status to penicillin; Z88.1 Allergy status to other antibiotic agents
CPT/HCPCS: 96365; J3489

== ENCOUNTER → 2023-05-28 | Outpatient (CLI) | payer MEDICARE ==
--- NOTE | 2023-05-28 21:44 | MR ---
EXAMINATION TYPE: MR lumbar spine wo con DATE OF EXAM: 05/28/2023 COMPARISON: None HISTORY: Low back pain into buttocks CONTRAST: 0 mL intravenous Gadavist. TECHNIQUE: Multiplanar, multisequence images of the lumbar spine were acquired. FINDINGS: Scoliosis is present. Degenerative disc changes are present through the lumbar spine. Disc desiccation is present throughout the lumbar spine. L5-S1: No significant disc bulge or disc herniation. No spinal canal stenosis. Left facet hypertroph y is present with posterior lateral thecal sac compression. Severe left foraminal stenosis may be pre sent. Some right facet hypertrophy is noted. L4-L5: Disc bulge has anterior thecal sac flattening. Facet hypertrophy and ligamentum flavum laxity is posterior lateral thecal sac compression. No AP spinal canal stenosis is present. Neural foramen a ppear patent L3-L4: Broad-based disc bulge is present with anterior thecal sac compression. No AP spinal canal annamaria nosis is present. Facet hypertrophy and ligamentum flavum laxity are present. Severe right foraminal stenosis is present. Correlate with radicular symptoms. L2-L3: Facet hypertrophy is present greater on the right with posterior lateral thecal sac compressio n. No AP spinal canal stenosis is present. Severe right foraminal stenosis present. Left foramen is p atent. L1-L2: There is a subligamentous disc herniation with mild anterior thecal sac compression extending beyond the endplate of L2. No AP spinal canal stenosis present. Severe right foraminal stenosis is pr esent T12-L1: No significant disc bulge or disc herniation. No spinal canal stenosis. Some hypertrophy and posterior lateral thecal sac compression. No cord contact is evident. Cord terminates at the L1 leve l. Incidental note is made of peripelvic cysts present bilaterally greater on the left. IMPRESSION: 1. Scoliosis with convexity to the left. 2. Degenerative disc changes and disc desiccation throughout the lumbar spine. 3. Multilevel severe foraminal stenosis most notably on the right at L3-4, L2-3, L1-2 and on the left at L5-S1. Of these, L3-4 right foraminal stenosis may be the most failure. Correlate with radicular symptoms. 4. Multilevel facet hypertrophy which has contribution to foraminal stenosis and posterior lateral th ecal sac compression
== END | disposition home or self-care (01) ==
LOC: RADMRIMAIN 07:35
PROVIDERS: ATTEND Internal Medicine
DX: M47.816 Spondylosis without myelopathy or radiculopathy, lumbar region (principal); M99.73 Connective tissue and disc stenosis of intervertebral foramina of lumbar region; M51.36 Other intervertebral disc degeneration, lumbar region; M41.86 Other forms of scoliosis, lumbar region; M51.26 Other intervertebral disc displacement, lumbar region
CPT/HCPCS: 72148

== ENCOUNTER → 2023-07-30 | Outpatient (CLI) | payer MEDICARE ==
--- NOTE | 2023-07-30 10:05 | CT ---
EXAMINATION TYPE: CT lumbar spine wo con DATE OF EXAM: 07/30/2023 COMPARISON: None HISTORY: Low back pain, unspecified CT DLP: 1234 mGycm CONTRAST: None TECHNIQUE: CT of the lumbar spine is performed on a spiral scan at 3 mm thick sections. Reconstructed images are performed in the coronal and sagittal planes. FINDINGS: There is diffuse loss of disc height throughout the lumbar spine. There is some relative pr eservation at L4-5. Vacuum disc phenomenon is present throughout the lumbar spine excepting L4-5. T12-L1: No focal disc herniation or significant disc bulge is evident. No spinal canal stenosis. Se grayson bilateral foraminal stenosis is present. L1-L2: There is loss of disc height is level. Vacuum disc phenomenon is present. No AP spinal canal s tenosis is present. Very severe right and severe left foraminal stenosis is present. L2-L3: Disc uncovering is present with anterior thecal sac flattening. Minimal retrolisthesis is pres ent. There is loss of disc height and vacuum disc phenomenon. No AP spinal canal stenosis is present. Very severe right and moderate to severe left foraminal stenosis is present. L3-L4: Loss of disc height and vacuum disc phenomenon is present. Severe right and moderate left fora josué stenosis is present. No AP spinal canal stenosis present L4-L5: Broad-based disc bulge has moderate to severe anterior thecal sac compression. AP spinal canal stenosis is present. Moderate right and very severe left foraminal stenosis is present. Correlate wi th radicular symptoms. L5-S1: Facet hypertrophy is present especially on the left with severe left foraminal stenosis. No AP spinal canal stenosis is present. Severe left and moderate right foraminal narrowing is present. No AP spinal canal stenosis. Vertebral alignment is straightened. Some scoliosis is present. IMPRESSION: Multilevel degenerative disc changes. 2. Large broad disc herniation L4-5 has severe spinal canal stenosis. 3. Multilevel very severe foraminal stenosis including left L5-S1, right L4-5, right L3-4, bilateral L2-3, greater on the right, and bilateral L1-2 more severe on the right.
== END | disposition home or self-care (01) ==
LOC: RADCTMAIN 09:19
PROVIDERS: ATTEND Orthopaedic Surgery
DX: M51.36 Other intervertebral disc degeneration, lumbar region (principal); M51.26 Other intervertebral disc displacement, lumbar region; M99.73 Connective tissue and disc stenosis of intervertebral foramina of lumbar region; M48.061 Spinal stenosis, lumbar region without neurogenic claudication
CPT/HCPCS: 72131

== ENCOUNTER → 2023-12-10 | Day surgery (SDC) | payer MEDICARE ==
[~2023-12-10] MED LIST changes: +LACTATED RINGERS 1,000 ML IV SCH; +LIDOCAINE 1% (10MG/ML) FOR IV START INTRADERMA PRN; +LIDOCAINE 1% INJ 10MG/ML (20 ML MDV) ONE; +PROPOFOL 10 MG/ML 20 ML VIAL IV ONE; -SODIUM CHLORIDE 0.9% 500 ML 500 ML in EMPTY BAG 1 BAG IV PRN; -ZOLEDRONIC ACID 5 MG in SODIUM CHLORIDE 0.9% 100 ML IV NR
--- NOTE | 2023-12-10 14:19 | P.GSHP ---
History of Present Illness H&P Date: 12/10/23 Chief Complaint: GERD, screening colonoscopy this a 73-year-old female has quit of GERD. Patient presents safer EGD and screening colonoscopy. Past Medical History Past Medical History: Eye Disorder, Osteoarthritis (OA) Additional Past Medical History / Comment(s): kidney stones, lap band, shoulder pain; cataract bilateral History of Any Multi-Drug Resistant Organisms: None Reported Past Surgical History: Bariatric Surgery, Cholecystectomy Additional Past Surgical History / Comment(s): lap band lap band removal/sleeve gastrectomy 06-16-20; cataract bilateral surgery Past Anesthesia/Blood Transfusion Reactions: Motion Sickness, Postoperative Nausea & Vomiting (PONV) Smoking Status: Never smoker - Past Family History Mother Family Medical History: Dementia Father Family Medical History: Cancer Additional Family Medical History / Comment(s): skin Sister(s) Family Medical History: Cancer Additional Family Medical History / Comment(s): skin Medications and Allergies Home Medications Medication Instructions Recorded Confirmed Type cycloSPORINE [Restasis] 1 applicator BOTH EYES BID 01/31/16 12/06/23 History Cetirizine HCl [Zyrtec] 10 mg PO DAILY 04/21/19 12/06/23 History Venlafaxine HCl [Effexor XR] 150 mg PO QAM 05/12/19 12/06/23 History Clindamycin Gel [Clindamycin 1 applic TOPICAL 0800 11/24/19 12/06/23 History Phosphate 1% Gel] Hydrocortisone Cream 1 applic TOPICAL DAILY 11/24/19 12/06/23 History [Hydrocortisone 2.5% Cream] Atorvastatin [Lipitor] 40 mg PO DAILY 03/21/21 12/06/23 History Cyclobenzaprine HCl 1 tab PO Q8HR PRN 12/07/22 12/06/23 History Dexlansoprazole [Dexilant] 30 mg PO DAILY 06/04/23 12/06/23 History Allergies Allergy/AdvReac Type Severity Reaction Status Date / Time Penicillins Allergy Rash/Hives Verified 12/06/23 11:25 Surgical - Exam - General well developed, well nourished, no distress - Eyes PERRL - ENT normal pinna, normal nares - Neck no masses - Respiratory normal expansion - Cardiovascular Rhythm: regular - Abdomen Abdomen: soft, non tender Assessment and Plan Assessment: GERD. We'll perform EGD. We'll also perform screening colonoscopy.
--- NOTE | 2023-12-10 15:28 | P.OP ---
Date of Procedure: 12/10/23 Preoperative Diagnosis: GERD Screening colonoscopy Postoperative Diagnosis: antral gastritis Diverticulosis Procedure(s) Performed: EGD Colonoscopy Anesthesia: MAC Surgeon: Michael Hickman Pathology: other (antrum) Condition: stable Disposition: PACU Description of Procedure: the patient's placed on the endoscopy table in the lateral position. She received IV sedation. The gastroscope patient oropharynx passed in the esophagus and stomach. Scope was placed through the pylorus. The first and sec ond portion of duodenum appeared normal. Scope was then brought back and the antrum this appeared minimally inflamed. A biopsies performed. The scope was then withdrawn.. Patient previous gastric sleeve. The cecum appeared to be slightly dilated. The GE junction was at 40 cm per the distal esophagus appeared normal. The proximal esophagus. Scope withdrawn for patient. Next digital rectal exam was performed. This revealed no abnormalities. Flexible colonoscope was then placed patient anus and passed throughout the colon. The cecal valve sutures. The cecum, ascending and transverse colon appeared normal. In the descendingand sigmoid there was moderate diverticular changes. The scope summer back the rectum and this appeared normal. Scope withdrawn for patient.
== END ==
LOC: ORWHC2ENDO 12:55
PROVIDERS: ATTEND Surgery
DX: Z12.11 Encounter for screening for malignant neoplasm of colon (principal); K29.50 Unspecified chronic gastritis without bleeding; K21.9 Gastro-esophageal reflux disease without esophagitis; K57.30 Diverticulosis of large intestine without perforation or abscess without bleeding; M19.90 Unspecified osteoarthritis, unspecified site; Z88.0 Allergy status to penicillin; Z90.49 Acquired absence of other specified parts of digestive tract; Z87.442 Personal history of urinary calculi
CPT/HCPCS: 88305; 45380; 43239; J2001; J2704

== ENCOUNTER → 2023-12-20 | Outpatient (CLI) | payer MEDICARE ==
--- NOTE | 2023-12-21 12:02 | MM ---
Reason for Exam: Screening (asymptomatic). Last screening mammogram was performed 12 month(s) ago. Patient History: Menarche at age 15. First Full-Term at age 29. Late child-bearing (after 30). Postmenopausal. Estrogen for 2 years from age 46 until age 48. Patient used Hormonal Contraceptives for 10 years. Paternal aunt had breast cancer, age 80. Risk Values: Sarah 5 year model risk: 2.2%. NCI Lifetime model risk: 5.1%. Prior Study Comparison: 11/11/2020 Bilateral Screening Mammogram, [facility]. 12/15/2021 Bilateral MG 3D screening mammo w/cad, [facility]. 12/18/2022 Bilateral MG 3D screening mammo w/cad, [facility]. Tissue Density: There are scattered areas of fibroglandular density. Findings: Analyzed By CAD. There is a vague nodular density in the central outer aspect of the right breast. Spot compression views are recommended. Overall Assessment: Incomplete: need additional imaging evaluation, BI-RAD 0 Management: Diagnostic Mammogram of both breasts. . Patient should continue monthly self-breast exams. A clinical breast exam by your physician is recommended on an annual basis. This exam should not preclude additional follow-up of suspicious palpable abnormalities. Note on Sarah scores and lifetime risk: 1. A Sarah score greater than 3% is considered moderate risk. If this is the case, consider specialist referral to assess eligibility for a risk reducing agent. 2. If overall lifetime risk for the development of breast cancer is 20% or higher, the patient may qualify for future screening with alternating mammogram and breast MRI. Electronically signed and approved by: Carlos Babin M.D. Radiologis
== END | disposition home or self-care (01) ==
LOC: RADMAMWWP 08:29
PROVIDERS: ATTEND Internal Medicine
DX: Z12.31 Encounter for screening mammogram for malignant neoplasm of breast (principal); Z80.3 Family history of malignant neoplasm of breast; Z78.0 Asymptomatic menopausal state
CPT/HCPCS: 77063; 77067

== ENCOUNTER → 2023-12-25 | Outpatient (CLI) | payer MEDICARE ==
--- NOTE | 2023-12-25 09:49 | MM ---
Reason for Exam: Additional evaluation requested from abnormal screening. Last screening mammogram was performed less than 1 month ago. Patient History: Menarche at age 15. First Full-Term at age 29. Late child-bearing (after 30). Postmenopausal. Estrogen for 2 years from age 46 until age 48. Patient used Hormonal Contraceptives for 10 years. Paternal aunt had breast cancer, age 80. Risk Values: Sarah 5 year model risk: 2.2%. NCI Lifetime model risk: 5.1%. Prior Study Comparison: 12/18/2022 Bilateral MG 3D screening mammo w/cad, [facility]. 12/20/2023 Bilateral MG 3D screening mammo w/cad, [facility]. Tissue Density: There are scattered areas of fibroglandular density. Findings: Analyzed By CAD. The pattern is symmetrical. On compression views very faint nodular density with circumscribed borders is present. This is stable from comparison studies. No suspicious interval change is evident. No suspicious groups of microcalcifications, spiculated or lobular masses, architectural distortion or other secondary signs of malignancy are mammographically apparent. Overall Assessment: Benign, BI-RAD 2 Management: Screening Mammogram of both breasts in 1 year. A negative mammogram report should not preclude additional follow up of suspicious palpable abnormalities. Patient should continue monthly self breast exam. A clinical breast exam by your physician is recommended on an annual basis and results should be correlated with mammographic findings. Note on Sarah scores and lifetime risk: 1. A Sarah score greater than 3% is considered moderate risk. If this is the case, consider specialist referral to assess eligibility for a risk reducing agent. 2. If overall lifetime risk for the development of breast cancer is 20% or higher, the patient may qualify for future screening with alternating mammogram and breast MRI. Electronically signed and approved by: Kenny Shepherd D.O. Radiologis
== END | disposition home or self-care (01) ==
LOC: RADMAMWWP 08:21
PROVIDERS: ATTEND Internal Medicine
DX: R92.321 Mammographic fibroglandular density, right breast (principal); R92.8 Other abnormal and inconclusive findings on diagnostic imaging of breast; Z80.3 Family history of malignant neoplasm of breast; Z78.0 Asymptomatic menopausal state
CPT/HCPCS: 77065; G0279; 77061

== ENCOUNTER → 2024-01-21 | Outpatient (CLI) | payer MEDICARE ==
[2024-01-21 10:03] VITALS: BP 138/82; PULSE 101; RESP 16; TEMP 98.2; BMI 41.8
--- NOTE | 2024-01-24 11:42 | P.HPBAR ---
Bariatric H&P - History & Physicial H&P Date: 01/21/24 History & Physicial: Visit/CC: Sleeve F/U Patient initial contact: Initial weight: 114.169 kg Initial weight in pounds: 251.70 Height: 5 ft 3 in Initial BMI: 44.6 Last weight: Current weight: 107.048 kg Current weight in pounds: 236.00 Current BMI: 41.8 [place] body weight (based on NIH guidelines): 52.163 kg Excess body weight loss: 11.4% The patient is a 73 year-old F who presents for Bariatric Assessment. She presents today for sleeve gastrectomy follow-up. Patient is gained 9 pounds her last visit. She has had minimal gerd. Her GERD is remained stable. Past Medical History Past Medical History: Eye Disorder, Osteoarthritis (OA) Additional Past Medical History / Comment(s): kidney stones, lap band, shoulder pain; cataract bilateral History of Any Multi-Drug Resistant Organisms: None Reported Past Surgical History: Bariatric Surgery, Cholecystectomy Additional Past Surgical History / Comment(s): lap band lap band removal/sleeve gastrectomy 06-16-20; cataract bilateral surgery Past Anesthesia/Blood Transfusion Reactions: Motion Sickness, Postoperative Nausea & Vomiting (PONV) Smoking Status: Never smoker - Past Family History Mother Family Medical History: Dementia Father Family Medical History: Cancer Additional Family Medical History / Comment(s): skin Sister(s) Family Medical History: Cancer Additional Family Medical History / Comment(s): skin Surgical - Exam Vital Signs Temp Pulse Resp BP 98.2 F 101 H 16 138/82 01/21/24 10:01 01/21/24 10:01 01/21/24 10:01 01/21/24 10:01 Abdomen is soft nontender - General well developed, well nourished Bariatric Assessment & Plan Plan: Patient is gerd is unchanged. She will continue medical management. She will try to improve her dietary habits. Bariatric Checklist Checklist: Plan: Checklist: EGD: 1. Hiatal hernia: 2. H. Pylori: HgbA1c: Vitamin D: Smoking: Never smoker Primary care physician referral: [facility] / [facility] Psychiatry clearance: Cardiology clearance: Sleep study: Diet journal: VTE risk score: VTE risk level: Rehab needs at discharge:
== END ==
LOC: BARWHC3 09:13
PROVIDERS: ATTEND Surgery
DX: Z48.815 Encounter for surgical aftercare following surgery on the digestive system (principal); K21.9 Gastro-esophageal reflux disease without esophagitis; Z90.3 Acquired absence of stomach [part of]; Z98.84 Bariatric surgery status; Z88.0 Allergy status to penicillin; Z68.41 Body mass index [BMI] 40.0-44.9, adult
CPT/HCPCS: 99211

== ENCOUNTER → 2024-04-14 | Outpatient (CLI) | payer MEDICARE ==
[2024-04-14 09:38] VITALS: BMI 41.1
[2024-04-14 09:40] VITALS: BP 113/74; PULSE 86; RESP 16; TEMP 98.1
--- NOTE | 2024-04-14 12:01 | P.HPBAR ---
Bariatric H&P - History & Physicial H&P Date: 04/14/24 History & Physicial: Visit/CC: f/u Patient initial contact: Initial weight: 114.169 kg Initial weight in pounds: 251.70 Height: 5 ft 3.5 in Initial BMI: 43.9 Last weight: Current weight: 107.133 kg Current weight in pounds: 236.19 Current BMI: 41.1 [place] body weight (based on NIH guidelines): 53.297 kg Excess body weight loss: 11.5% The patient is a 73 year-old F who presents for Bariatric Assessment. Patient presents today for. Assessment. Patient's weight has remained unchanged. She has had minimal GERD. Past Medical History Past Medical History: Eye Disorder, Osteoarthritis (OA) Additional Past Medical History / Comment(s): kidney stones, lap band, shoulder pain; cataract bilateral History of Any Multi-Drug Resistant Organisms: None Reported Past Surgical History: Bariatric Surgery, Cholecystectomy Additional Past Surgical History / Comment(s): lap band lap band removal/sleeve gastrectomy 06-16-20; cataract bilateral surgery Past Anesthesia/Blood Transfusion Reactions: Motion Sickness, Postoperative Nausea & Vomiting (PONV) Past Psychological History: No Psychological Hx Reported Smoking Status: Never smoker Past Alcohol Use History: Rare Past Drug Use History: None Reported - Past Family History Father Family Medical History: Cancer Additional Family Medical History / Comment(s): skin Sister(s) Family Medical History: Cancer Additional Family Medical History / Comment(s): skin Surgical - Exam Vital Signs Temp Pulse Resp BP 98.1 F 86 16 113/74 04/14/24 09:27 04/14/24 09:27 04/14/24 09:27 04/14/24 09:27 - General well developed, well nourished, no distress - Eyes PERRL - Cardiovascular Rhythm: regular - Abdomen Abdomen: soft, non tender Bariatric Assessment & Plan Plan: Patient's gerd is minimal at 10. She will follow-up in 4 weeks. Bariatric Checklist Checklist: Plan: Checklist: EGD: 1. Hiatal hernia: 2. H. Pylori: HgbA1c: Vitamin D: Smoking: Never smoker Primary care physician referral: [facility] Psychiatry clearance: Cardiology clearance: Sleep study: Diet journal: VTE risk score: VTE risk level: Rehab needs at discharge:
== END | disposition home or self-care (01) ==
LOC: BARWHC3 09:10
PROVIDERS: ATTEND Surgery
DX: E66.01 Morbid (severe) obesity due to excess calories
CPT/HCPCS: 99211

== ENCOUNTER → 2024-05-27 | Outpatient (CLI) | payer MEDICARE ==
--- NOTE | 2024-05-27 10:29 | BD ---
EXAMINATION TYPE: Axial Bone Density DATE OF EXAM: 05/27/2024 CLINICAL HISTORY: 73 years old Female. ICD-10 CODE: M85.80 OTH DISRD OF BONE DENSITY AND STRUCTURE, UN , Additional History: Height: 5 ft 2 1/4 in Weight: 239 FRAX RISK QUESTIONS: Alcohol (3 or more units per day): no Family History (Parent hip fracture): yes Glucocorticoids (More than 3mos): no (Ex: prednisone, prednisolone, methylprednisolone, dexamethasone, and hydrocortisone). History of Fracture in Adulthood: yes Secondary Osteoporosis: 1. Type 1 Diabetes: no 2. Hyperthyroidism: no 3. Menopause before 45: yes 4. Malnutrition: no 5. Chronic liver disease: no Rheumatoid Arthritis: no Current Tobacco Use: no RISK FACTORS HISTORY OF: Surgery to Spine/Hip(right/left)/Wrist (right/left): no MEDICATIONS: Thyroid Medications: none Osteoporosis Medications: yes Which medication: infusion How Lon years EXAM MEASUREMENTS: Bone mineral densitometry was performed using the KSE System. Bone mineral density as measured about the Lumbar spine is: ----- L1-L4(G/cm2): 1.202 T Score Values are as follows: ----- L1: -0.8 ----- L2: 0.7 ----- L3: 0.8 ----- L4: -0.2 ----- L1-L4: 0.2 Z Score Values are as follows: ----- L1: -0.2 ----- L2: 1.3 ----- L3: 1.3 ----- L4: 0.4 ----- L1-L4: 0.8 Bone mineral density has: increased 35.4 % since study of: 2021 Bone mineral density about the R hip (g/cm2): 0.825 Bone mineral density about the L hip (g/cm2): 0.839 T Score values are as follows: -----R Neck: -1.5 -----L Neck: -1.4 -----R Total: -0.2 -----L Total: -0.4 Z Score values are as follows: -----R Neck: -0.4 -----L Neck: -0.3 -----R Total: 0.7 -----L Total: 0.5 Bone mineral density has: increased 2.9 % since study of: 2020 FRAX%s: The graph provided illustrates a 22.9 % chance for a major osteoporotic fx and a 9.8 % chance for the hips probability for fx in 10 years time. IMPRESSION: Normal (Values between +1 and -1 indicate normal bone mass). Consider repeating this study in 5 year s or sooner if there is some new clinical indication. NOTE: T-SCORE=SD OF THE YOUNG ADULT MEAN. [facility], , 05/27/2024 10:26 AM
== END | disposition home or self-care (01) ==
LOC: RADBDWWP 06:59
PROVIDERS: ATTEND Internal Medicine
DX: M85.89 Other specified disorders of bone density and structure, multiple sites (principal); Z78.0 Asymptomatic menopausal state
CPT/HCPCS: 77080

== ENCOUNTER → 2024-06-11 | Outpatient (CLI) | payer MEDICARE ==
--- NOTE | 2024-06-11 10:32 | US ---
EXAMINATION TYPE: US abdomen complete DATE OF EXAM: 06/11/2024 COMPARISON: CT Angio 01/12/2023. CLINICAL INDICATION: Female, 73 years old with history of R74.8 ABNORMAL LEVELS OF OTHER SERUM ENZYME S; Abnormal labs. GB removed. Hx parapelvic cysts. TECHNIQUE: Grayscale and color Doppler imaging of the abdomen was performed. FINDINGS: EXAM MEASUREMENTS: Liver Length: 14.4 cm CBD: 1.0 cm, color Doppler imaging was utilized to isolate the common bile duct for measurement. Spleen: 8.6 cm Right Kidney: 9.8 x 4.8 x 4.0 cm Left Kidney: 10.7 x 5.3 x 5.2 cm Pancreas: wnl Liver: Appears coarse and slightly nodular Gallbladder: Surgically absent Evidence for sonographic Nino's sign: neg CBD: wnl Spleen: wnl Right Kidney: pelvic anechoic areas, largest = 0.7 x 1.0 x 0.6 cm Left Kidney: pelvic anechoic areas, largest = 2.5 x 1.9 x 1.6 cm Upper IVC: wnl Abd Aorta: No AAA visualized at time of scan The liver is coarsened with nodular contour no suspicious masses visualized.. The intrahepatic porti on of the IVC and proximal abdominal aorta are within normal limits. There is no evidence of choleli thiasis. Common bile duct is unremarkable. The visualized portions of the pancreas are homogenous. The spleen is unremarkable. Kidneys are symmetric with similar dilation of the left renal collectin g system compared to prior's. No renal lesions are seen. IMPRESSION: 1. No evidence for acute process. 2. Mild left hydronephrosis. Findings similar to 01/12/2023 CT. 3. Coarsened echotexture was slightly nodular contour to the liver correlate for hepatocellular dise ase. [facility], , 06/11/2024 10:30 AM
== END | disposition home or self-care (01) ==
LOC: RADUSWWP 09:10
PROVIDERS: ATTEND Internal Medicine
DX: N13.30 Unspecified hydronephrosis (principal); R74.8 Abnormal levels of other serum enzymes
CPT/HCPCS: 76700

== ENCOUNTER → 2024-07-28 | Outpatient (CLI) | payer MEDICARE ==
[2024-07-28 09:32] VITALS: BMI 41.5
[2024-07-28 09:37] VITALS: BP 121/78; PULSE 98; RESP 16; TEMP 98
--- NOTE | 2024-07-28 17:05 | P.HPBAR ---
Bariatric H&P - History & Physicial H&P Date: 07/28/24 History & Physicial: Visit/CC: f/u Patient initial contact: Initial weight: 114.169 kg Initial weight in pounds: 251.70 Height: 5 ft 3.5 in Initial BMI: 43.9 Last weight: Current weight: 107.955 kg Current weight in pounds: 238.00 Current BMI: 41.5 [place] body weight (based on NIH guidelines): 53.297 kg Excess body weight loss: 10.2% The patient is a 73 year-old F who presents for Bariatric Assessment. Patient presents today for bariatric follow-up. Her weight has been stable. She has does have complaints of mild GERD. Past Medical History Past Medical History: Eye Disorder, Osteoarthritis (OA) Additional Past Medical History / Comment(s): kidney stones, lap band, shoulder pain; cataract bilateral History of Any Multi-Drug Resistant Organisms: None Reported Past Surgical History: Bariatric Surgery, Cholecystectomy Additional Past Surgical History / Comment(s): lap band lap band removal/sleeve gastrectomy 06-16-20; cataract bilateral surgery Past Anesthesia/Blood Transfusion Reactions: Motion Sickness, Postoperative Nausea & Vomiting (PONV) Past Psychological History: No Psychological Hx Reported Smoking Status: Never smoker Past Alcohol Use History: Rare Past Drug Use History: None Reported - Past Family History Mother Family Medical History: Dementia Father Family Medical History: Cancer Additional Family Medical History / Comment(s): skin Sister(s) Family Medical History: Cancer Additional Family Medical History / Comment(s): skin Surgical - Exam Vital Signs Temp Pulse Resp BP 98.0 F 98 16 121/78 07/28/24 09:27 07/28/24 09:27 07/28/24 09:27 07/28/24 09:27 - General well developed, well nourished, no distress - Eyes PERRL - ENT normal pinna - Neck no masses - Respiratory normal expansion - Cardiovascular Rhythm: regular - Abdomen Abdomen: soft, non tender Bariatric Assessment & Plan Plan: Status post sleeve gastric. Patient is gerd is minimal and will be observed. She will follow-up in 3 months. Bariatric Checklist Checklist: Plan: Checklist: EGD: 1. Hiatal hernia: 2. H. Pylori: HgbA1c: Vitamin D: Smoking: Never smoker Primary care physician referral: [facility] Psychiatry clearance: Cardiology clearance: Sleep study: Diet journal: VTE risk score: VTE risk level: Rehab needs at discharge:
== END ==
LOC: BARWHC3 09:14
PROVIDERS: ATTEND Surgery
DX: K44.9 Diaphragmatic hernia without obstruction or gangrene (principal); B96.81 Helicobacter pylori [H. pylori] as the cause of diseases classified elsewhere; Z88.0 Allergy status to penicillin
CPT/HCPCS: 99211

== ENCOUNTER → 2024-09-18 | Outpatient (CLI) | payer MEDICARE ==
--- NOTE | 2024-09-18 13:12 | XR ---
EXAMINATION TYPE: XR chest 2V DATE OF EXAM: 09/18/2024 CLINICAL INDICATION: Female, 73 years old with history of R05.1 ACUTE COUGH, TECHNIQUE: Frontal and lateral views of the chest are obtained. COMPARISON: None FINDINGS: Slightly elevated left hemidiaphragm. Dextroconvex scoliosis centered in the lower thoraci c spine is seen. There is no focal air space opacity, pleural effusion, or pneumothorax seen. The ca rdiac silhouette size is within normal limits. IMPRESSION: No acute pulmonary process. [facility], , 09/18/2024 1:10 PM
== END | disposition home or self-care (01) ==
LOC: RADXRMAIN 12:52
PROVIDERS: ATTEND Internal Medicine
DX: R05.1 Acute cough (principal)
CPT/HCPCS: 71046

== ENCOUNTER 2024-10-12 01:14 | Emergency (ER) | payer MEDICARE ==
[2024-10-12 01:19] VITALS: BP 144/81; PULSE 93; RESP 18; TEMP 98.3
[2024-10-12 01:58] LABS: Anisocytosis Slight; Basophils # (A) 0.1 k/uL (0-0.2); Basophils % (A) 1 %; Eosinophils # (A) 0.3 k/uL (0-0.7); Eosinophils % (A) 4 %; HGB 12.2 gm/dL (11.4-16.0); Lymphocytes # (A) 2.8 k/uL (1.0-4.8); Lymphocytes % (A) 31 %; MCH 24.1 pg (25.0-35.0); MCHC 30.6 g/dL (31.0-37.0); MCV 78.7 fL (80.0-100.0); Mean Platelet Volume 7.8; Microcytosis Slight; Monocytes # (A) 0.6 k/uL (0-1.0); Monocytes % (A) 7 %; Neutrophils % (A) 55 %; Platelet Count 386 k/uL (150-450); RBC 5.08 m/uL (3.80-5.40); RDW 16.4 % (11.5-15.5); WBC 9.1 k/uL (3.8-10.6)
[2024-10-12] MEDS: PANTOPRAZOLE 40 MG/10 ML VIAL IVP STA (01:58)
[2024-10-12] MEDS: MAG HYDROX/AL HYDROX/SIMETH 30 ML CUP PO STA (01:59)
[2024-10-12] MEDS: METOCLOPRAMIDE 5 MG/ML 2 ML VIAL IVP STA (01:59)
--- NOTE | 2024-10-12 02:00 | ED ---
General Adult HPI - General Chief complaint: Recheck/Abnormal Lab/Rx Stated complaint: Acid Reflux Time Seen by Provider: 10/12/24 01:20 Source: patient, RN notes reviewed, old records reviewed Mode of arrival: ambulatory Limitations: no limitations - History of Present Illness Initial comments: 73-year-old female history of gastric reflux and remote history of bariatric surgery presents for evaluation of indigestion and burning type reflux pain in the upper chest. Patient states that she does take a daily proton pump inhibitor and has used [id number] antiacid today without significant relief. She typically is able to have relief with these symptoms at home. No exertional chest pain. No dyspnea. no diaphoresis. Patient is not concerned about her heart. - Related Data Home Medications Medication Instructions Recorded Confirmed cycloSPORINE [Restasis] 1 applicator BOTH EYES BID 01/31/16 07/28/24 Cetirizine HCl [Zyrtec] 10 mg PO DAILY 04/21/19 07/28/24 Venlafaxine HCl [Effexor XR] 150 mg PO QAM 05/12/19 07/28/24 Clindamycin Gel [Clindamycin 1 applic TOPICAL 0811/24/19 07/28/24 Phosphate 1% Gel] Atorvastatin [Lipitor] 40 mg PO DAILY 03/21/21 07/28/24 Cyclobenzaprine HCl 1 tab PO Q8HR PRN 12/07/22 07/28/24 Dexlansoprazole [Dexilant] 30 mg PO DAILY 06/04/23 07/28/24 Calcium Carbonate/Vitamin D3 2 tab PO DAILY 04/14/24 07/28/24 [Calcium 500-Vit D3 400 Chew Tb] Cyanocobalamin [Vitamin B-12] 500 mcg PO DAILY 04/14/24 07/28/24 Fluticasone Nasal Galt [Flonase 1 puff INHALATION DAILY PRN 04/14/24 07/28/24 Nasal Galt] Ketoconazole 2% Cream [Nizoral 2%] 1 applic TOPICAL DAILY 04/14/24 07/28/24 [employer] Extra Strength Antacid 2 tab PO DIRECTED PRN 07/28/24 07/28/24 Allergies Allergy/AdvReac Type Severity Reaction Status Date / Time Penicillins Allergy Rash/Hives Verified 10/12/24 01:19 Review of Systems ROS Statement: Those systems with pertinent positive or pertinent negative responses have been documented in the HPI. ROS Other: All systems not noted in ROS Statement are negative. Past Medical History Past Medical History: Eye Disorder, Osteoarthritis (OA) Additional Past Medical History / Comment(s): kidney stones, lap band, shoulder pain; cataract bilateral History of Any Multi-Drug Resistant Organisms: None Reported Past Surgical History: Bariatric Surgery, Cholecystectomy Additional Past Surgical History / Comment(s): lap band lap band removal/sleeve gastrectomy 06-16-20; cataract bilateral surgery Past Anesthesia/Blood Transfusion Reactions: Motion Sickness, Postoperative Nausea & Vomiting (PONV) Past Psychological History: No Psychological Hx Reported Smoking Status: Never smoker Past Alcohol Use History: Rare Past Drug Use History: None Reported - Past Family History Mother Family Medical History: Dementia Father Family Medical History: Cancer Additional Family Medical History / Comment(s): skin Sister(s) Family Medical History: Cancer Additional Family Medical History / Comment(s): skin General Exam Limitations: no limitations General appearance: alert, in no apparent distress Head exam: Present: atraumatic, normocephalic Eye exam: Present: normal appearance, PERRL ENT exam: Present: normal exam Neck exam: Present: normal inspection. Absent: tenderness, meningismus Respiratory exam: Present: normal lung sounds bilaterally. Absent: respiratory distress, wheezes GI/Abdominal exam: Present: soft. Absent: distended, tenderness, guarding Extremities exam: Present: normal inspection, normal capillary refill Neurological exam: Present: alert, oriented X3 Psychiatric exam: Present: normal affect, normal mood Skin exam: Present: warm, dry, intact Course Vital Signs 10/12/24 01:17 Temperature 98.3 F Pulse Rate 93 Respiratory 18 Rate Blood Pressure 144/81 O2 Sat by Pulse 95 Oximetry - Reevaluation(s) Reevaluation #1: 10/12/24 02:40 Patient states symptoms resolved with treatment Medical Decision Making - Medical Decision Making Was pt. sent in by a medical professional or institution (, PA, STRUCTURAL STEEL ERECTOR, urgent care, hospital, or care home...) When possible be specific @ -No Did you speak to anyone other than the patient for history (EMS, parent, family, police, friend...)? What history was obtained from this source @ -No Did you review nursing and triage notes (agree or disagree)? Why? @ -I reviewed and agree with nursing and triage notes Were old charts reviewed (outside hosp., previous admission, EMS record, old EKG, old radiological studies, urgent care reports/EKG's, care home records)? Report findings @ -No old charts were reviewed Differential Chest Pain: Stable Angina, Unstable Angina, STEMI, NSTEMI Aortic Dissection, Pneumothorax, Musculoskeletal, Esophageal Spasm GERD, Cholecystitis, Pancreatitis, Zoster, this is not meant to be an all-inclusive list. EKG interpreted by me (3pts min.). @ -Sinus rhythm rate of 68, VA interval 185, QRS duration 112, QTc [address] segment elevation. X-rays interpreted by me (1pt min.). @ -None done CT interpreted by me (1pt min.). @ -None done U/S interpreted by me (1pt. min.). @ -None done What testing was considered but not performed or refused? (CT, X-rays, U/S, labs)? Why? @ -None What meds were considered but not given or refused? Why? @ -None Did you discuss the management of the patient with other professionals (professionals i.e. , PA, STRUCTURAL STEEL ERECTOR, lab, RT, psych nurse, public health social worker, marketing traffic coordinator, teacher, intelligence officer basic, caser)? Give summary @ -No Was smoking cessation discussed for >3mins.? @ -No Was critical care preformed (if so, how long)? @ -No Were there social determinants of health that impacted care today? How? (Homelessness, low income, unemployed, alcoholism, drug addiction, transportat ion, low edu. Level, literacy, decrease access to med. care, residential, rehab)? @ -No Was there de-escalation of care discussed even if they declined (Discuss DNR or withdrawal of care, Hospice)? DNR status @ -No What co-morbidities impacted this encounter? (DM, HTN, Smoking, COPD, CAD, Cancer, CVA, ARF, Chemo, Hep., AIDS, mental health diagnosis, sleep apnea, morbid obesity)? @ -Gastric reflux, gastric sleeve Was patient admitted / discharged? Hospital course, mention meds given and route, prescriptions, significant lab abnormalities, going to OR and other pertinent info. @ -73-year-old female with indigestion, reflux with out relief from home medications. Given the history I did have concern for anginal equivalent although the patient denied specific chest pain and did not feel this was related to her heart stating it was similar to her reflux. EKG was sinus without ST segment elevation. She had a normal CBC, normal CMP, negative troponin. After treatment in the emergency department she feels significantly better. She is eager for discharge. I did give return parameters if her symptoms should change or worsen in any way. Undiagnosed new problem with uncertain prognosis? @ -No Drug Therapy requiring intensive monitoring for toxicity (Heparin, Nitro, Insulin, Cardizem)? @ -No Were any procedures done? @ -No Diagnosis/symptom? @ -[Gastric reflux Acute, or Chronic, or Acute on Chronic? @ -Acute Uncomplicated (without systemic symptoms) or Complicated (systemic symptoms)? @ -Default Side effects of treatment? @ -No Exacerbation, Progression, or Severe Exacerbation? @ -No Poses a threat to life or bodily function? How? (Chest pain, USA, AR, pneumonia, PE, COPD, DKA, ARF, appy, cholecystitis, CVA, Diverticulitis, Homicidal, Suicidal, threat to staff... and all critical care pts) @ -low risk at this time - Lab Data Result diagrams: 10/12/24 01:30 10/12/24 01:30 Lab Results 10/12/24 10/12/24 10/12/24 Range/Units 01:30 01:30 01:30 WBC 9.1 (3.8-10.6) k/uL RBC 5.08 (3.80-5.40) m/uL Hgb 12.2 (11.4-16.0) gm/dL Hct 40.0 (34.0-46.0) % MCV 78.7 L (80.0-100.0) fL MCH 24.1 L (25.0-35.0) pg MCHC 30.6 L (31.0-37.0) g/dL RDW 16.4 H (11.5-15.5) % Plt Count 386 (150-450) k/uL MPV 7.8 Neutrophils % 55 % Lymphocytes % 31 % Monocytes % 7 % Eosinophils % 4 % Basophils % 1 % Neutrophils # 5.0 (1.3-7.7) k/uL Lymphocytes # 2.8 (1.0-4.8) k/uL Monocytes # 0.6 (0-1.0) k/uL Eosinophils # 0.3 (0-0.7) k/uL Basophils # 0.1 (0-0.2) k/uL Anisocytosis Slight Microcytosis Slight PT 10.6 (10.0-12.5) sec INR 0.9 (<1.2) APTT 23.3 (22.0-30.0) sec Sodium 137 (137-145) mmol/L Potassium 4.0 (3.5-5.1) mmol/L Chloride 103 (98-107) mmol/L Carbon Dioxide 23 (22-30) mmol/L Anion Gap 11 mmol/L BUN 20 H (7-17) mg/dL Creatinine 0.65 (0.52-1.04) mg/dL Est GFR (CKD-EPI)AfAm >90 (>60 ml/min/1.73 sqM) Est GFR (CKD-EPI)NonAf 88 (>60 ml/min/1.73 sqM) Glucose 117 H (74-99) mg/dL Calcium 9.5 (8.4-10.2) mg/dL Magnesium 2.0 (1.6-2.3) mg/dL Total Bilirubin 0.6 (0.2-1.3) mg/dL AST 27 (14-36) U/L ALT 18 (4-34) U/L Alkaline Phosphatase 126 (38-126) U/L Troponin I (0.000-0.034) ng/mL Total Protein 7.5 (6.3-8.2) g/dL Albumin 4.1 (3.5-5.0) g/dL 10/12/24 Range/Units 01:30 WBC (3.8-10.6) k/uL RBC (3.80-5.40) m/uL Hgb (11.4-16.0) gm/dL Hct (34.0-46.0) % MCV (80.0-100.0) fL MCH (25.0-35.0) pg MCHC (31.0-37.0) g/dL RDW (11.5-15.5) % Plt Count (150-450) k/uL MPV Neutrophils % % Lymphocytes % % Monocytes % % Eosinophils % % Basophils % % Neutrophils # (1.3-7.7) k/uL Lymphocytes # (1.0-4.8) k/uL Monocytes # (0-1.0) k/uL Eosinophils # (0-0.7) k/uL Basophils # (0-0.2) k/uL Anisocytosis Microcytosis PT (10.0-12.5) sec INR (<1.2) APTT (22.0-30.0) sec Sodium (137-145) mmol/L Potassium (3.5-5.1) mmol/L Chloride (98-107) mmol/L Carbon Dioxide (22-30) mmol/L Anion Gap mmol/L BUN (7-17) mg/dL Creatinine (0.52-1.04) mg/dL Est GFR (CKD-EPI)AfAm (>60 ml/min/1.73 sqM) Est GFR (CKD-EPI)NonAf (>60 ml/min/1.73 sqM) Glucose (74-99) mg/dL Calcium (8.4-10.2) mg/dL Magnesium (1.6-2.3) mg/dL Total Bilirubin (0.2-1.3) mg/dL AST (14-36) U/L ALT (4-34) U/L Alkaline Phosphatase (38-126) U/L Troponin I <0.012 (0.000-0.034) ng/mL Total Protein (6.3-8.2) g/dL Albumin (3.5-5.0) g/dL Disposition Clinical Impression: GERD (gastroesophageal reflux disease) Disposition: HOME SELF-CARE Condition: Fair Instructions (If sedation given, give patient instructions): GERD (Gastroesophageal Reflux Disease) (DC) Is patient prescribed a controlled substance at d/c from ED?: No Referrals: Venkat Kolb DO [Primary Care Provider] - 1-2 days Time of Disposition: 02:43
[2024-10-12 02:05] LABS: ALT 18 U/L (4-34); AST 27 U/L (14-36); African American GFR (CKD) >90 (>60 ml/min/1.73 sqM); Albumin 4.1 g/dL (3.5-5.0); Alkaline Phosphatase 126 U/L (38-126); Anion Gap 11 mmol/L; Blood Urea Nitrogen 20 mg/dL (7-17); Calcium 9.5 mg/dL (8.4-10.2); Carbon Dioxide 23 mmol/L (22-30); Chloride 103 mmol/L (98-107); Glucose 117 mg/dL (74-99); Non-African American GFR(CKD) 88 (>60 ml/min/1.73 sqM); Sodium 137 mmol/L (137-145); Total Bilirubin 0.6 mg/dL (0.2-1.3); Total Protein 7.5 g/dL (6.3-8.2)
[2024-10-12] MEDS: SODIUM CHLORIDE 0.9% 500 ML 500 ML IV ONE (02:15)
[2024-10-12] MEDS: ACETAMINOPHEN IV (For NPO) 1,000 MG in EMPTY BAG 1 BAG IVPB STA (02:24)
[2024-10-12 02:36] LABS: INR 0.9 (<1.2); Partial Thromboplastin Time 23.3 sec (22.0-30.0); Prothrombin Time 10.6 sec (10.0-12.5)
== END 2024-10-12 02:59 | disposition home or self-care (01) ==
LOC: EC 01:14
DX: K21.9 Gastro-esophageal reflux disease without esophagitis (principal); Z88.0 Allergy status to penicillin
CPT/HCPCS: 36415; 93005; 80053; 83735; 84484; 85025; 85610; 85730; 99283; 96365; 96375 ×2; J2765; J0131; J2470

== ENCOUNTER → 2024-11-17 | Outpatient (CLI) | payer MEDICARE ==
[2024-11-17 08:40] VITALS: BP 148/80; PULSE 94; RESP 16; TEMP 97.9; BMI 41.5
--- NOTE | 2024-11-25 16:31 | P.HPBAR ---
Bariatric H&P - History & Physicial H&P Date: 11/25/24 History & Physicial: Visit/CC: f/u sleeve Patient initial contact: Initial weight: 114.169 kg Initial weight in pounds: 251.70 Height: 5 ft 3.5 in Initial BMI: 43.9 Last weight: Current weight: 107.955 kg Current weight in pounds: 238.00 Current BMI: 41.5 [place] body weight (based on NIH guidelines): 53.4 kg Excess body weight loss: 10.2% The patient is a 74 year-old F who presents for Bariatric Assessment. This is a 74-year-old female who has history of previous gastric sleeve surgery. Patient has some minimal complaints of GERD. Her weight has remained stable. Past Medical History Past Medical History: Eye Disorder, Osteoarthritis (OA) Additional Past Medical History / Comment(s): kidney stones, lap band, shoulder pain; cataract bilateral History of Any Multi-Drug Resistant Organisms: None Reported Past Surgical History: Bariatric Surgery, Cholecystectomy Additional Past Surgical History / Comment(s): lap band lap band removal/sleeve gastrectomy 06-16-20; cataract bilateral surgery, rt lower tooth implant 11/2024 Past Anesthesia/Blood Transfusion Reactions: Motion Sickness, Postoperative Nausea & Vomiting (PONV) Past Psychological History: No Psychological Hx Reported Smoking Status: Never smoker Past Alcohol Use History: Rare Past Drug Use History: None Reported - Past Family History Mother Family Medical History: Dementia Father Family Medical History: Cancer Additional Family Medical History / Comment(s): skin Sister(s) Family Medical History: Cancer Additional Family Medical History / Comment(s): skin Surgical - Exam Vital Signs Temp Pulse Resp BP 97.9 F 94 16 148/80 11/17/24 08:33 11/17/24 08:33 11/17/24 08:33 11/17/24 08:33 - General well developed, well nourished, no distress - Eyes PERRL - Abdomen Abdomen: soft, non tender Bariatric Assessment & Plan Plan: Status post gastric sleeve surgery. Patient's weight is stable. Her GERD is minimal only observed. Bariatric Checklist Checklist: Plan: Checklist: EGD: 1. Hiatal hernia: 2. H. Pylori: HgbA1c: Vitamin D: Smoking: Never smoker Primary care physician referral: [facility] Psychiatry clearance: Cardiology clearance: Sleep study: Diet journal: VTE risk score: VTE risk level: Rehab needs at discharge:
== END ==
LOC: BARWHC3 08:19
PROVIDERS: ATTEND Surgery
DX: E66.01 Morbid (severe) obesity due to excess calories (principal); K21.9 Gastro-esophageal reflux disease without esophagitis; Z68.41 Body mass index [BMI] 40.0-44.9, adult; Z90.49 Acquired absence of other specified parts of digestive tract; Z88.0 Allergy status to penicillin
CPT/HCPCS: 99211

== ENCOUNTER → 2025-01-05 | Outpatient (CLI) | payer MEDICARE ==
--- NOTE | 2025-01-05 09:46 | MM ---
Reason for Exam: Screening (asymptomatic). Last screening mammogram was performed 12 month(s) ago. Patient History: Menarche at age 15. First Full-Term at age 29. Late child-bearing (after 29). Postmenopausal. Estrogen for 2 years from age 46 until age 48. Patient used Hormonal Contraceptives for 10 years. Paternal aunt had breast cancer, age 80. Risk Values: Sarah 5 year model risk: 2.2%. NCI Lifetime model risk: 4.8%. Prior Study Comparison: 12/18/2022 Bilateral MG 3D screening mammo w/cad, [facility]. 12/20/2023 Bilateral MG 3D screening mammo w/cad, [facility]. 12/25/2023 Bilateral MG 3D work up w/cad [facility], [facility]. Tissue Density: There are scattered areas of fibroglandular density. Findings: Analyzed By CAD. There is no suspicious group of microcalcifications or new suspicious mass in either breast. Overall Assessment: Negative, BI-RAD 1 Management: Screening Mammogram of both breasts in 1 year. Patient should continue monthly self-breast exams. A clinical breast exam by your physician is recommended on an annual basis. This exam should not preclude additional follow-up of suspicious palpable abnormalities. Note on Sarah scores and lifetime risk: 1. A Sarah score greater than 3% is considered moderate risk. If this is the case, consider specialist referral to assess eligibility for a risk reducing agent. 2. If overall lifetime risk for the development of breast cancer is 20% or higher, the patient may qualify for future screening with alternating mammogram and breast MRI. [facility], , 01/05/2025 9:43 AM. Electronically signed and approved by: Joelle Arias M.D. Radiologist
== END | disposition home or self-care (01) ==
LOC: RADMAMWWP 11:35
PROVIDERS: ATTEND Internal Medicine
DX: Z12.31 Encounter for screening mammogram for malignant neoplasm of breast (principal); R92.323 Mammographic fibroglandular density, bilateral breasts; Z78.0 Asymptomatic menopausal state; Z92.0 Personal history of contraception; Z80.3 Family history of malignant neoplasm of breast
CPT/HCPCS: 77063; 77067

== ENCOUNTER → 2025-01-06 | Outpatient (CLI) | payer MEDICARE ==
--- NOTE | 2025-01-06 13:47 | XR ---
EXAMINATION TYPE: XR Hip Complete LT DATE OF EXAM: 01/06/2025 10:37 AM INDICATION: Patient age:Female; 74 years old; Reason for study: M25.552 L hip pain; PHH. pain COMPARISON: CT abdomen and pelvis 03/04/2016 TECHNIQUE: The left hip was examined in the frontal and lateral projections. FINDINGS: No evidence of any acute osseous pathology, joint dislocation, or soft tissue swelling. Min imal osteoarthritic changes of the left hip with medial joint space narrowing and acetabular sclerosi s. IMPRESSION: 1. No acute osseous pathology. 2. Minimal osteoarthritic changes of the left hip. [facility], , 01/06/2025 1:45 PM
--- NOTE | 2025-01-06 13:50 | XR ---
EXAMINATION TYPE: XR lumbar spine 2 or 3V DATE OF EXAM: 01/06/2025 CLINICAL HISTORY: pain TECHNIQUE: Three views of the lumbar spine are submitted. COMPARISON: CT lumbar spine 07/30/2023, lumbar spine radiograph 07/25/2023, MRI lumbar spine 05/28/2023 , lumbosacral spine radiograph 11/25/2022 FINDINGS: There are 5 lumbar type vertebral bodies identified. There is again levoconvex scoliosis centered at the L2-L3 level. Dextroconvex scoliosis of the partially visualized lower thoracic spine. Diffuse gino ne demineralization. Slight grade 1 retrolisthesis L2 on L3. Multilevel disc space with endplate scle rosis, vacuum disease, and anterior osteophytosis of the visualized thoracolumbar spine. Multilevel f acet arthropathy in the lower lumbar spine. Vertebral body heights are maintained. Cholecystectomy cl ips in the right upper quadrant. Surgical clips and sutures within the left upper quadrant. Moderate amount stool is present within the bowel. IMPRESSION: 1. No acute fracture. 2. Moderate multilevel degenerative disc disease and facet arthropathy of the visualized thoracolumb ar spine. 3. S-shaped scoliotic curvature of the visualized thoracolumbar spine. [facility], , 01/06/2025 1:48 PM
--- NOTE | 2025-01-06 14:14 | XR ---
EXAMINATION TYPE: XR tibia fibula bilateral DATE OF EXAM: 01/06/2025 10:37 AM INDICATION: Patient age:Female; 74 years old; Reason for study: M54.50 Lumbar pain; PHH. Lower extremity pain COMPARISON: None TECHNIQUE: Both tibia/fibula were examined in AP and lateral projections. FINDINGS: No evidence of any acute osseous pathology, joint dislocation, or soft tissue swelling is n oted. Left anterior superficial soft tissue calcifications. Probable phleboliths. No osseous erosion or periosteal reaction. No radiopaque foreign body. Bilateral plantar cannula spurs. IMPRESSION: No evidence of acute fracture. [facility], , 01/06/2025 2:12 PM
== END | disposition home or self-care (01) ==
LOC: RADXRMAIN 09:55
PROVIDERS: ATTEND Internal Medicine
DX: M51.360 Other intervertebral disc degeneration, lumbar region with discogenic back pain only (principal); M16.12 Unilateral primary osteoarthritis, left hip; M47.815 Spondylosis without myelopathy or radiculopathy, thoracolumbar region; M41.85 Other forms of scoliosis, thoracolumbar region
CPT/HCPCS: 72100; 73502